=== PATIENT | male | born 1985 | race Caucasian/White ===

== ENCOUNTER 2016-11-30 12:25 | Inpatient (IN) ==
[2016-11-30] MEDS ORDERED: 0.9 % Sodium Chloride 1,000 ML IVC ONE ×2 (12:36→16:07)
[2016-11-30] MEDS ORDERED: Ketorolac 15 MG/ML VIAL IVP ONE (12:36)
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
[2016-11-30 12:56] LABS: Hematocrit 42.9 % (37.5-50.1); Hemoglobin 14.1 g/dL (12.9-16.9); Mean Corpuscular HGB Conc 32.9 g/dL (31.6-35.5); Mean Corpuscular Hemoglobin 27.8 pg (28.0-33.3); Mean Corpuscular Volume 84.4 fL (83.0-100.0); Mean Platelet Volume 9.8 fL (9.4-12.4); Platelet Count 209 K/mcL (140-400); Red Blood Count 5.08 M/mcL (4.19-5.50); Red Cell Distribution Width 14.5 % (11.5-14.5)
[2016-11-30] MEDS ORDERED: Vancomycin 1,500 MG in D5% in Water 250 ML IVPB ONE (13:00)
[2016-11-30 13:12] LABS: Alanine Aminotransferase 22 Units/L (0-55); Albumin 3.1 g/dL (3.5-5.0); Albumin/Globulin Ratio 0.7 (1.1-2.2); Alkaline Phosphatase 61 Units/L (38-126); Aspartate Amino Transferase 21 Units/L (5-34); BUN/Creatinine Ratio 21 (6-26); Bilirubin,Direct 0.4 mg/dL (0.0-0.5); Bilirubin,Indirect 0.3 mg/dL (0.0-1.2); Bilirubin,Total 0.7 mg/dL (0.2-1.2); Blood Urea Nitrogen 18 mg/dL (8-26); Calcium 9.5 mg/dL (8.6-10.8); Carbon Dioxide 24 mEq/L (19-29); Chloride 94 mEq/L (98-109); Globulin 4.7 g/dL (2.4-3.5); Glucose 140 mg/dL (70-99); Magnesium 1.4 mg/dL (1.6-2.6); Osmolality,Calculated 266 (280-300); Potassium 4.2 mEq/L (3.5-4.5); Sodium 126 mEq/L (136-145); Total Protein 7.8 g/dL (6.0-8.3); eGFR For African Americans > 60 (> 60); eGFR For Non-African Americans > 60 (> 60)
[2016-11-30 13:26] LABS: Monocytes # 0.4 K/mcL (0.0-1.3); Platelet Clumps Few (Not Present); Platelet Estimate Normal (Normal); Toxic Vacuolation Present (Not Present)
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
--- NOTE | 2016-11-30 16:18 | Electrocardiograph Report ---
[facility] Test Date: 2016-11-30 Pat Name: Ritesh Garzon Department: 103 Room: Gender: M Special Tester: : 1985 Requested By: Farida Kang Order Number: [id number] Reading MD: Veronica Flores DO Measurements Intervals [place] Rate: 109 P: 52 DE: 146 QRS: 97 QRSD: 88 T: 55 QT: 308 QTc: 372 Interpretive Statements SINUS TACHYCARDIA BORDERLINE RIGHT AXIS DEVIATION ABNORMAL RHYTHM ECG Electronically Signed On 11-30-2016 16:16:12 EDT by Veronica Flores DO
[2016-11-30] MEDS ORDERED: Gentamicin 350 MG in 0.9 % Sodium Chloride 100 ML IVPB STA (16:24)
[2016-11-30] MEDS ORDERED: Ipratropium/Albuterol Neb 3 ML IH PRN (17:39)
[2016-11-30] MEDS ORDERED: Ondansetron 4 MG/2 ML VIAL IVP PRN (17:40)
[2016-11-30] MEDS ORDERED: Acetaminophen 325 MG TABLET PO PRN (17:40)
[2016-11-30] MEDS ORDERED: Naloxone 0.4 MG/ML INJ IVP PRN (17:40)
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
[2016-11-30] MEDS ORDERED: Vancomycin (wt based) 1,000 MG VIAL IVPB SCH (18:00)
[2016-11-30] MEDS: *HR* Morphine 2 MG/ML SYRINGE IVP PRN (20:35)
[2016-11-30] MEDS: Levofloxacin 750 MG/150 ML 750 MG/150 ML BAG IVPB SCH (21:30)
[2016-11-30] MEDS: 0.9 % Sodium Chloride 1,000 ML IVC SCH (21:30)
[2016-11-30] MEDS: *HR* Heparin 5,000 UNIT/ML VIAL SQ SCH ×2 (21:30→21:54)
[2016-11-30] MEDS: Nicotine 21 MG PATCH.TD24 TD SCH (21:31)
[2016-11-30] MEDS: Magnesium Oxide 400 MG TABLET PO SCH ×2 (21:31→21:54)
[2016-11-30] MEDS: Ketorolac 30 MG/ML VIAL IVP PRN (21:32)
[2016-12-01] MEDS: *HR* Morphine 2 MG/ML SYRINGE IVP PRN ×6 (02:09→23:45)
[2016-12-01] MEDS: Vancomycin 1,000 MG in D5% in Water 250 ML IVPB SCH ×2 (02:09→16:15)
[2016-12-01 03:41] LABS: Enterococcus by PCR Not Detected (Not Detect)
[2016-12-01 03:42] LABS: Acinetobacter baumannii by PCR Not Detected (Not Detect); Candida albicans by PCR Not Detected (Not Detect); Candida glabrata by PCR Not Detected (Not Detect); Candida krusei by PCR Not Detected (Not Detect); Candida parapsilosis by PCR Not Detected (Not Detect); Candida tropicalis by PCR Not Detected (Not Detect); Escherichia coli by PCR Not Detected (Not Detect); Klebsiella oxytoca by PCR Not Detected (Not Detect); Klebsiella pneumoniae by PCR Not Detected (Not Detect); Pseudomonas aeruginosa by PCR Not Detected (Not Detect); Serratia marcescens by PCR Not Detected (Not Detect); Staphylococcus aureus by PCR Not Detected (Not Detect); Streptococcus agalactiae(B)PCR Not Detected (Not Detect); Streptococcus by PCR ***DETECTED*** (Not Detect); Streptococcus pneumoniae PCR Not Detected (Not Detect); Streptococcus pyogenes (A) PCR ***DETECTED*** (Not Detect)
[2016-12-01] MEDS: *HR* Heparin 5,000 UNIT/ML VIAL SQ SCH ×3 (04:55→22:34)
[2016-12-01] MEDS: Ketorolac 30 MG/ML VIAL IVP PRN ×3 (04:55→18:19)
[2016-12-01] MEDS ORDERED: 0.9 % Sodium Chloride 1,000 ML IVC ONE (05:26)
[2016-12-01 05:51] LABS: Hematocrit 37.4 % (37.5-50.1); Hemoglobin 12.7 g/dL (12.9-16.9); Mean Corpuscular Hemoglobin 27.9 pg (28.0-33.3); Mean Corpuscular Volume 82.2 fL (83.0-100.0); Red Blood Count 4.55 M/mcL (4.19-5.50); Red Cell Distribution Width 14.5 % (11.5-14.5)
[2016-12-01 05:56] LABS: Platelet Count 185 K/mcL (140-400)
[2016-12-01 06:03] LABS: Lymphocytes # 0.3 K/mcL (0.6-4.6); Monocytes # 0.5 K/mcL (0.0-1.3); Neutrophils # 11.4 K/mcL (1.6-8.9)
[2016-12-01 06:14] LABS: Hypochromasia Present (Not Present)
[2016-12-01 06:15] LABS: Platelet Clumps Few (Not Present); Platelet Estimate Normal (Normal); Toxic Granulation Present (Not Present); Toxic Vacuolation Present (Not Present)
[2016-12-01] MEDS: Nicotine 21 MG PATCH.TD24 TD SCH (09:22)
[2016-12-01] MEDS: Magnesium Oxide 400 MG TABLET PO SCH ×2 (09:25→20:32)
[2016-12-01] MEDS: Ibuprofen 400 MG TABLET PO PRN ×2 (09:26→16:14)
[2016-12-01] MEDS: 0.9 % Sodium Chloride 1,000 ML IVC SCH ×3 (09:27→17:39)
[2016-12-01 13:59] LABS: BUN/Creatinine Ratio 21 (6-26); Blood Urea Nitrogen 15 mg/dL (8-26); Calcium 8.4 mg/dL (8.6-10.8); Carbon Dioxide 22 mEq/L (19-29); Chloride 104 mEq/L (98-109); Glucose 109 mg/dL (70-99); Magnesium 1.3 mg/dL (1.6-2.6); Osmolality,Calculated 273 (280-300); Potassium 4.4 mEq/L (3.5-4.5); Sodium 131 mEq/L (136-145); eGFR For African Americans > 60 (> 60); eGFR For Non-African Americans > 60 (> 60)
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
[2016-12-01] MEDS ORDERED: Magnesium Sulfate 2 GM in D5% in Water 100 ML IVPB ONE (16:46)
--- NOTE | 2016-12-01 16:48 | Internal Med Progress Note ---
Date of Encounter: 12/01/16 Time of Encounter: 16:45 - Assessment and plan (1) PNA (pneumonia) Current Visit: Yes Status: Acute Qualifiers: Pneumonia type: due to unspecified organism Laterality: unspecified laterality Lung location: lower lobe of lung Qualified Code(s): J18.1 - Lobar pneumonia, unspecified organism (2) Cellulitis Current Visit: Yes Status: Acute Qualifiers: Site of cellulitis: extremity Site of cellulitis of extremity: upper extremity Laterality: right Qualified Code(s): L03.113 - Cellulitis of right upper limb (3) Empyema Current Visit: Yes Status: Acute (4) Severe sepsis Current Visit: Yes Status: Acute (5) IV drug abuse Current Visit: Yes Status: Acute (6) Hypomagnesemia Current Visit: Yes Status: Acute - Subjective Interval history: Patient is 31-year-old IV drug user admitted with a right hand cellulitis and left lung pneumonia with effusion which could be empyema. Cardiothoracic surgery has been consulted who recommended elective thoracentesis and a sonogram on Saturday. Echocardiogram was done which was negative for vegetation and otherwise normal. Blood culture showed Streptococcus and sensitivities pending. Patient is on IV vancomycin and Levaquin as he is allergic to penicillin. He has responded well as white count has come down. Will repeat white count and renal function and have pharmacy dose the vancomycin. Magnesium was noted low and has been corrected. She will be rechecked also. - Constitutional Vitals: Temp Pulse Resp BP Pulse Ox 98.7 F 93 18 146/85 97 12/01/16 15:00 12/01/16 15:00 12/01/16 15:00 12/01/16 15:00 12/01/16 15:00 General appearance: Present: A&O X 3 (Dry mucosa) - Head Head exam: Present: atraumatic, normocephalic - Eye Eye exam: Present: PERRL, conjuntiva pink, sclera anicteric Pupils: Present: PERRL - Neck Neck exam general surgery: Present: supple, trachea midline. Absent: lymphadenopathy - Respiratory Respiratory exam: Present: CTAB. Absent: accessory muscle use, rales, rhonchi, wheezes - Cardiovascular Cardiovascular exam: Present: RRR, +S1, +S2. Absent: diastolic murmur, gallop, rubs, systolic murmur - GI/Abdominal GI/Abdominal exam: Present: normal bowel sounds, soft, no peritoneal signs. Absent: distended, tenderness - Extremities Exam Extremities exam: Present: warm, radial pulses palpable and symetrical. Absent : calf tenderness, cyanotic, pedal edema - Neurological Exam Neurological exam: Present: CN II-XII intact, oriented X3, no focal deficits. Absent: pronater drift, facial droop, speech deficit - Skin Skin exam: Present: dry, intact Internal Medicine: Result - Labs CBC & Chem 7: 12/01/16 04:20 12/01/16 10:58 Labs: Short CBC 12/01/16 Range/Units 04:20 WBC 12.7 H (4.3-11.1) K/mcL Hgb 12.7 L (12.9-16.9) g/dL Hct 37.4 L (37.5-50.1) % Plt Count 185 (140-400) K/mcL Neutrophils # 11.4 H (1.6-8.9) K/mcL BMP 12/01/16 10:58 Sodium 131 L Potassium 4.4 Chloride 104 Carbon Dioxide 22 BUN 15 Creatinine 0.72 Glucose 109 H Calcium 8.4 L Consult Discharge Plan - Plan Referrals: NONE,PCP [Primary Care Provider] -
[2016-12-01] MEDS: Levofloxacin 750 MG/150 ML 750 MG/150 ML BAG IVPB SCH (20:33)
[2016-12-02] MEDS: 0.9 % Sodium Chloride 1,000 ML IVC SCH ×2 (00:56→07:14)
[2016-12-02] MEDS: Ketorolac 30 MG/ML VIAL IVP PRN ×4 (00:58→23:05)
[2016-12-02] MEDS: Vancomycin 1,000 MG in D5% in Water 250 ML IVPB SCH ×3 (01:09→18:26)
[2016-12-02 01:16] LABS: Basophils % 0.3 %; Eosinophils # 0.1 K/mcL (0.0-0.6); Eosinophils % 0.7 %; Hematocrit 37.3 % (37.5-50.1); Hemoglobin 12.5 g/dL (12.9-16.9); Immature Granulocytes % 0.9 % (0-4); Lymphocytes # 0.8 K/mcL (0.6-4.6); Lymphocytes % 7.9 %; Mean Corpuscular HGB Conc 33.5 g/dL (31.6-35.5); Mean Corpuscular Hemoglobin 27.7 pg (28.0-33.3); Mean Corpuscular Volume 82.7 fL (83.0-100.0); Mean Platelet Volume 10.3 fL (9.4-12.4); Monocytes # 1.2 K/mcL (0.0-1.3); Monocytes % 11.5 %; Platelet Count 170 K/mcL (140-400); Red Blood Count 4.51 M/mcL (4.19-5.50); Red Cell Distribution Width 14.7 % (11.5-14.5); Segmented Neutrophils % 78.7 %
[2016-12-02 01:34] LABS: Alanine Aminotransferase 20 Units/L (0-55); Albumin/Globulin Ratio 0.6 (1.1-2.2); Alkaline Phosphatase 88 Units/L (38-126); Aspartate Amino Transferase 23 Units/L (5-34); BUN/Creatinine Ratio 16 (6-26); Bilirubin,Total 0.4 mg/dL (0.2-1.2); Blood Urea Nitrogen 11 mg/dL (8-26); Calcium 7.8 mg/dL (8.6-10.8); Carbon Dioxide 22 mEq/L (19-29); Chloride 104 mEq/L (98-109); Globulin 3.4 g/dL (2.4-3.5); Glucose 112 mg/dL (70-99); Magnesium 1.4 mg/dL (1.6-2.6); Osmolality,Calculated 272 (280-300); Potassium 4.3 mEq/L (3.5-4.5); Sodium 131 mEq/L (136-145); eGFR For African Americans > 60 (> 60); eGFR For Non-African Americans > 60 (> 60)
[2016-12-02 01:36] LABS: Albumin 1.9 g/dL (3.5-5.0); Total Protein 5.3 g/dL (6.0-8.3)
[2016-12-02 01:48] LABS: Platelet Estimate Normal (Normal); Reactive Lymphocytes Present (Not Present)
[2016-12-02 01:49] LABS: Anisocytosis 1+ (Not Present)
[2016-12-02] MEDS: *HR* Morphine 2 MG/ML SYRINGE IVP PRN ×4 (03:54→20:38)
[2016-12-02] MEDS: *HR* Heparin 5,000 UNIT/ML VIAL SQ SCH ×3 (05:23→22:05)
[2016-12-02] MEDS: Acetaminophen 325 MG TABLET PO PRN (07:13)
[2016-12-02] MEDS: Nicotine 21 MG PATCH.TD24 TD SCH (07:37)
[2016-12-02] MEDS: Magnesium Oxide 400 MG TABLET PO SCH ×2 (07:46→20:38)
--- NOTE | 2016-12-02 08:24 | Pulmonology Consult Note ---
Date of Encounter: 12/02/16 Time of Encounter: 08:30 Assessment and Plan (1) PNA (pneumonia) Current Visit: Yes Status: Acute Patient with community-acquired pneumonia and there is improvement in the leukocytosis and clinically patient feels slightly better, however he had spiked fever earlier and even though allergies mentioned penicillin, however patient does not remember what type of reaction he had and he claims his mother told him when he was a child he is allergic to penicillin. Reviewed his blood culture sensitivity and will stop Levaquin to start ceftriaxone. Continue vancomycin for now. Blood culture needs to be repeated to make sure there is no endocarditis since septic emboli is in the differential diagnosis with his history of IV drug abuse. If blood cultures remain positive, then he will need SANCHEZ. Plan of care discussed with primary team and thank you very much for the consultation. Qualifiers: Qualified Code(s): J18.1 - Lobar pneumonia, unspecified organism (2) Empyema Current Visit: Yes Status: Acute This was mentioned by the radiologist on the CT chest which is in the differential diagnosis. Discussed with Dr. Krueger cardiothoracic and agree with the plan as outlined by him in his consultation note. I still feel fluid is small and if anything perhaps for diagnostic reason he needs thoracentesis. Otherwise if clinically continued to improve with improvement in labs, perhaps monitorin reasonable. (3) Cellulitis Current Visit: Yes Status: Acute Qualifiers: Qualified Code(s): L03.113 - Cellulitis of right upper limb History of Present Illness Consult date: 12/02/16 Requesting physician: Komal Palmer Reason for consult: pneumonia, pleural effusion Chief complaint: Right-sided chest pain History of present illness: This is a 31-year-old male with significant history of IV drug abuse and also smoking tobacco and he stated he is not using anything for the past 2 months. Patient presented with right-sided chest pain, which has improved now with the treatment and he also has pain in his right hand after he had flight before coming to the hospital. He was diagnosed with cellulitis of the right hand. He has pleuritic chest pain and he also has productive cough, wheezing with dyspnea according to the patient and he also was found to have fever and chills. His blood culture has been positive and he had CT chest with evidence of pleural effusion. He denies any loss of consciousness and he denies any exposure to patients with TB. He denies any birds or pets Past Med Surg Social Fam HX - Past Medical History Medical history: other Psychiatric history: no psych history - Past Surgical History Surgical History: no surgical history - Social History Smoking Status: Current every day smoker Packs per day: Half a pack per day Smokeless Tobacco Status: No Alcohol use: none Drug use: opiates, IV Drug Use Medications and Allergies HYDROcodone/Acet 5/325 mg [[place] 5-325 mg] 1 tab PO Q6H PRN #7 tab 11/29/16 [Rx] predniSONE [PredniSONE] 40 mg PO DAILY #10 tablet 11/29/16 [Rx] Allergies Penicillins Allergy (Verified 11/29/16 19:04) Anaphylaxis All Systems: A 10-system review of systems was performed and is negative for pertinent findings except as documented above in the HPI. Physical Examination Vital Signs: Vital Signs, Last 4 Hours Temp Pulse Resp BP Pulse Ox 12/02/16 07:00 98.5 F 103 18 163/100 95 12/02/16 05:28 137/90 General appearance: no acute distress Eyes: nonicteric ENT: oropharynx moist Mallampati (class): 1 Neck: supple, no lymphadenopathy Effort: normal Auscultation: left: clear, right: diminished breath sounds Percussion: left: not dull, right: dull Cardiovascular: regular rate and rhythm Gastrointestinal: normoactive bowel sounds, non-distended Integumentary: erythema, cellulitis (Right hand) Extremities: no cyanosis, no edema, no clubbing normal mental status, non-focal exam mood appropriate Results - Laboratory Findings CBC and BMP: 12/02/16 01:06 12/02/16 01:06 Abnormal lab findings: Abnormal lab results Hgb 12.5 g/dL (12.9-16.9) L 12/02/16 01:06 Hct 37.3 % (37.5-50.1) L 12/02/16 01:06 MCV 82.7 fL (83.0-100.0) L 12/02/16 01:06 MCH 27.7 pg (28.0-33.3) L 12/02/16 01:06 RDW 14.7 % (11.5-14.5) H 12/02/16 01:06 Band Neutrophils % 12.0 % (0-4) H 12/01/16 04:20 Metamyelocytes % 4.0 % (0) H 12/01/16 04:20 Reactive Lymphocytes Present (Not Present) A 12/02/16 01:06 Toxic Granulation Present (Not Present) A 12/01/16 04:20 Toxic Vacuolation Present (Not Present) A 12/01/16 04:20 Clumped Platelets Few (Not Present) A 12/01/16 04:20 Hypochromasia Present (Not Present) A 12/01/16 04:20 Anisocytosis 1+ (Not Present) A 12/02/16 01:06 Sodium 131 mEq/L (136-145) L 12/02/16 01:06 Creatinine 0.68 mg/dL (0.72-1.25) L 12/02/16 01:06 Glucose 112 mg/dL (70-99) H 12/02/16 01:06 Calculated Osmolality 272 (280-300) L 12/02/16 01:06 Lactic Acid 2.6 mmol/L (0.5-2.2) H 11/30/16 20:18 Calcium 7.8 mg/dL (8.6-10.8) L 12/02/16 01:06 Magnesium 1.4 mg/dL (1.6-2.6) L 12/02/16 01:06 Serum Total Protein 5.3 g/dL (6.0-8.3) L D 12/02/16 01:06 Albumin 1.9 g/dL (3.5-5.0) L D 12/02/16 01:06 Albumin/Globulin Ratio 0.6 (1.1-2.2) L 12/02/16 01:06 Vancomycin Trough 6.9 mcg/mL (10-20) L 12/02/16 01:06 Streptococcus sp PCR DETECTED (Not Detect) A 11/30/16 12:53 Group A Strep DNA DETECTED (Not Detect) A 11/30/16 12:53 - Diagnostic Findings CT scan - chest: report reviewed, image reviewed - Clinical Findings Intake & Output: Intake & Output 12/01/16 12/02/16 12/02/16 23:59 07:59 15:59 Intake Total 1250 / 1250 1150 / 1150 Output Total 750 / 750 Balance 500 / 500 1150 / 1150 Consult Discharge Plan - Plan Referrals: NONE,PCP [Primary Care Provider] -
--- NOTE | 2016-12-02 09:16 | Cardiothoracic Progress Note ---
Date of Encounter: 12/02/16 Time of Encounter: 09:15 - Assessment and plan (1) Cellulitis Current Visit: Yes Status: Acute The patient is improving. White blood cell count is down. His right hand cellulitis is improved. I will sign off. Please call if needed. Qualifiers: Site of cellulitis: extremity Site of cellulitis of extremity: upper extremity Laterality: right Qualified Code(s): L03.113 - Cellulitis of right upper limb - Subjective Interval history: The patient states that his right hand feels better. Vital Signs, Last 4 Hours Temp Pulse Resp BP Pulse Ox 12/02/16 08:00 95 12/02/16 07:00 98.5 F 103 18 163/100 95 12/02/16 05:28 137/90 Oxgyen Flow Rate Oxygen Flow Rate (LPM) 3.5 Weight 11/30/16 12/01/16 12/02/16 23:59 23:59 23:59 Weight 64.4 kg Lungs are clear to percussion and auscultation. Heart is in a normal sinus rhythm. The cellulitis, redness and swelling in his right hand are improved. - Labs 12/02/16 01:06 12/02/16 01:06 Lab Results, Last 24 hours 12/01/16 12/02/16 12/02/16 10:58 01:06 01:06 WBC 10.1 Hgb 12.5 L Hct 37.3 L Plt Count 170 Sodium 131 L 131 L Potassium 4.4 4.3 Chloride 104 104 Carbon Dioxide 22 22 BUN 15 11 Creatinine 0.72 0.68 L Glucose 109 H 112 H Calcium 8.4 L 7.8 L Magnesium 1.3 L 1.4 L Total Bilirubin 0.4 AST 23 ALT 20 Alkaline Phosphatase 88 Consult Discharge Plan - Plan Referrals: NONE,PCP [Primary Care Provider] -
[2016-12-02] MEDS: Ibuprofen 400 MG TABLET PO PRN (10:28)
[2016-12-02] MEDS ORDERED: Acetaminophen 325 MG TABLET PO SCH (12:00)
[2016-12-02] MEDS ORDERED: Magnesium Sulfate 2 GM in D5% in Water 100 ML IVPB ONE (15:24)
--- NOTE | 2016-12-02 15:33 | Internal Med Progress Note ---
Date of Encounter: 12/02/16 Time of Encounter: 15:28 - Assessment and plan (1) PNA (pneumonia) Current Visit: Yes Status: Acute Qualifiers: Pneumonia type: due to unspecified organism Laterality: unspecified laterality Lung location: lower lobe of lung Qualified Code(s): J18.1 - Lobar pneumonia, unspecified organism (2) Cellulitis Current Visit: Yes Status: Acute Qualifiers: Site of cellulitis: extremity Site of cellulitis of extremity: upper extremity Laterality: right Qualified Code(s): L03.113 - Cellulitis of right upper limb (3) Empyema Current Visit: Yes Status: Acute (4) Severe sepsis Current Visit: Yes Status: Acute (5) IV drug abuse Current Visit: Yes Status: Acute (6) Hypomagnesemia Current Visit: Yes Status: Acute - Subjective Interval history: Patient is 31-year-old IV drug user admitted with a right hand cellulitis and left lung pneumonia with effusion which could be empyema. Cardiothoracic surgery has been consulted who recommended elective thoracentesis and a sonogram on Saturday. Echocardiogram was done which was negative for vegetation and otherwise normal. Blood culture showed Streptococcus and sensitivities pending. Patient is on IV vancomycin and Levaquin as he is allergic to penicillin. He has responded well as white count has come down. Will repeat white count and renal function and have pharmacy dose the vancomycin. Magnesium was noted low and has been corrected. She will be rechecked also. #1 sepsis involving the right lower lung pneumonia/possible empyema, right upper extremity swelling. Blood culture showed Streptococcus pyogenes. Patient is on vancomycin and Rocephin 2 g. Levaquin DC'd. WBC count is coming down and continue monitoring WBC. Pulmonology and Cardizem plastic surgery on case however at this time they do not recommend thoracentesis. For now continue IV antibiotics and in 2-3 days we will repeat blood culture to see bacteremia has resolved. Otherwise a SANCHEZ will be performed X #2 hyponatremia/hypomagnesemia etiology is not clear but I noted that his serum osmolality is low therefore I will turn off IV fluid and keep him on fluid restriction. This could be secondary to pulmonary infection. #3 right hand swelling causing some capillary refill and thumb and index finger but is still not more than 3 second Will watch closely and if appear necessary may involve hand surgeon. #4 history of IV drug abuse patient claims that he has been clean for last few months - Constitutional Vitals: Temp Pulse Resp BP Pulse Ox 98.5 F 103 18 163/100 95 12/02/16 07:00 12/02/16 07:00 12/02/16 07:00 12/02/16 07:00 12/02/16 11:21 General appearance: Present: A&O X 3 (Dry mucosa) - Head Head exam: Present: atraumatic, normocephalic - Eye Eye exam: Present: PERRL, conjuntiva pink, sclera anicteric Pupils: Present: PERRL - Neck Neck exam general surgery: Present: supple, trachea midline. Absent: lymphadenopathy - Respiratory Respiratory exam: Present: CTAB. Absent: accessory muscle use, rales, rhonchi, wheezes - Cardiovascular Cardiovascular exam: Present: RRR, +S1, +S2. Absent: diastolic murmur, gallop, rubs, systolic murmur - GI/Abdominal GI/Abdominal exam: Present: normal bowel sounds, soft, no peritoneal signs. Absent: distended, tenderness - Extremities Exam Extremities exam: Present: warm, radial pulses palpable and symetrical. Absent : calf tenderness, cyanotic, pedal edema Additional comments: Right hand and forearm swelling. In ulnar side capillary refill is adequate but on the radial side especially thumb and index finger it is delayed to 2 second. We will watch him closely. Sensation intact. Radial pulse intact. - Neurological Exam Neurological exam: Present: CN II-XII intact, oriented X3, no focal deficits. Absent: pronater drift, facial droop, speech deficit - Skin Skin exam: Present: dry, intact Internal Medicine: Result - Labs CBC & Chem 7: 12/02/16 01:06 12/02/16 01:06 Labs: Short CBC 12/02/16 Range/Units 01:06 WBC 10.1 (4.3-11.1) K/mcL Hgb 12.5 L (12.9-16.9) g/dL Hct 37.3 L (37.5-50.1) % Plt Count 170 (140-400) K/mcL Neutrophils # 8.0 (1.6-8.9) K/mcL BMP 12/02/16 01:06 Sodium 131 L Potassium 4.3 Chloride 104 Carbon Dioxide 22 BUN 11 Creatinine 0.68 L Glucose 112 H Calcium 7.8 L Liver Function 12/02/16 Range/Units 01:06 Total Bilirubin 0.4 (0.2-1.2) mg/dL AST 23 (5-34) Units/L ALT 20 (0-55) Units/L Alkaline Phosphatase 88 (38-126) Units/L Albumin 1.9 L D (3.5-5.0) g/dL Consult Discharge Plan - Plan Referrals: NONE,PCP [Primary Care Provider] -
[2016-12-03] MEDS: Acetaminophen 325 MG TABLET PO PRN ×2 (00:13→16:05)
[2016-12-03] MEDS: Vancomycin 1,000 MG in D5% in Water 250 ML IVPB SCH ×3 (01:40→16:10)
[2016-12-03] MEDS: *HR* Morphine 2 MG/ML SYRINGE IVP PRN ×5 (03:47→21:43)
[2016-12-03] MEDS: *HR* Heparin 5,000 UNIT/ML VIAL SQ SCH ×3 (05:30→22:31)
[2016-12-03 06:00] LABS: Hematocrit 39.6 % (37.5-50.1); Hemoglobin 13.5 g/dL (12.9-16.9); Mean Corpuscular HGB Conc 34.1 g/dL (31.6-35.5); Mean Platelet Volume 13.1 fL (9.4-12.4); Platelet Count 127 K/mcL (140-400); Red Blood Count 4.83 M/mcL (4.19-5.50); Red Cell Distribution Width 15.1 % (11.5-14.5)
[2016-12-03] MEDS: Ketorolac 30 MG/ML VIAL IVP PRN ×3 (06:01→22:39)
[2016-12-03 06:08] LABS: Alanine Aminotransferase 24 Units/L (0-55); Albumin 1.8 g/dL (3.5-5.0); Albumin/Globulin Ratio 0.5 (1.1-2.2); Alkaline Phosphatase 138 Units/L (38-126); Aspartate Amino Transferase 30 Units/L (5-34); BUN/Creatinine Ratio 16 (6-26); Bilirubin,Total 0.3 mg/dL (0.2-1.2); Blood Urea Nitrogen 12 mg/dL (8-26); Carbon Dioxide 24 mEq/L (19-29); Chloride 103 mEq/L (98-109); Globulin 3.8 g/dL (2.4-3.5); Glucose 106 mg/dL (70-99); Magnesium 1.6 mg/dL (1.6-2.6); Osmolality,Calculated 278 (280-300); Potassium 4.5 mEq/L (3.5-4.5); Sodium 134 mEq/L (136-145); Total Protein 5.6 g/dL (6.0-8.3); eGFR For African Americans > 60 (> 60); eGFR For Non-African Americans > 60 (> 60)
--- NOTE | 2016-12-03 06:49 | Pulmonology Progress Note ---
Date of Encounter: 12/03/16 Time of Encounter: 06:49 Assessment and Plan (1) Group A streptococcal infection Current Visit: Yes Status: Acute 31-year-old gentleman IV drug abuser presenting with GAS Strep Bacteremia, cellulitis withevidence of right pleural infection possible empyema versus complicated parapneumonic effusion likely nidus infection and cellulitis of the right lower extremity. Despite IV antibiotics the as showing worsening features over the last 12-24 hours Recs: -Recommend formal consultation with Interventional Radiology for pleural fluid drainage if this area can be completely drained with thoracentesis I believe that that is appropriate if not then placement a small bore pleural drainage catheter is reasonable approach. Please send pleural fluid studies for pH cell count and Gram stain LDH glucose and total protein. -Repeat blood cultures if remains positive would consider SANCHEZ to rule out endocarditis -Continue antimicrobial therapy with ceftriaxone -Consider CT versus MRI imaging of right elbow -Recommend formal infectious disease consultation -Chemical DVT prophylaxis while inpatient and unless contraindication arises (2) Pleural effusion Current Visit: Yes Status: Acute (3) PNA (pneumonia) Current Visit: Yes Status: Acute Qualifiers: Pneumonia type: due to unspecified organism Laterality: unspecified laterality Lung location: lower lobe of lung Qualified Code(s): J18.1 - Lobar pneumonia, unspecified organism Subjective Principal diagnosis: Bacteremia Interval history: Patient says that he feels awful although the swelling in his hand has decreased his had worsening arm swelling around the elbow. Still with significant pleuritic chest pain and splinting as a result. MAXIMUM TEMPERATURE greater than 101 overnight Objective PUL Vital signs: Last Vital Signs Temp 98.1 F 12/03/16 05:54 Pulse 80 12/03/16 05:54 Resp 19 12/03/16 05:54 BP 110/95 12/03/16 05:54 Pulse Ox 96 12/03/16 05:54 General appearance: no acute distress ENT: oropharynx dry Effort: normal Auscultation: right: diminished breath sounds, rales, rhonchi Cardiovascular: regular rate and rhythm Gastrointestinal: normoactive bowel sounds Musculoskeletal: joint inflammation, joint tenderness (Right elbow to the forearm is noted the [employer] under to palpation no expressible drainage or evidence of trauma) Results - Laboratory Findings CBC and BMP: 12/03/16 04:19 12/03/16 04:19 Abnormal lab findings: Abnormal lab results WBC 12.9 K/mcL (4.3-11.1) H 12/03/16 04:19 MCV 82.0 fL (83.0-100.0) L 12/03/16 04:19 RDW 15.1 % (11.5-14.5) H 12/03/16 04:19 Plt Count 127 K/mcL (140-400) L 12/03/16 04:19 MPV 13.1 fL (9.4-12.4) H 12/03/16 04:19 Band Neutrophils % 12.0 % (0-4) H 12/01/16 04:20 Metamyelocytes % 4.0 % (0) H 12/01/16 04:20 Reactive Lymphocytes Present (Not Present) A 12/02/16 01:06 Toxic Granulation Present (Not Present) A 12/01/16 04:20 Toxic Vacuolation Present (Not Present) A 12/01/16 04:20 Clumped Platelets Few (Not Present) A 12/01/16 04:20 Hypochromasia Present (Not Present) A 12/01/16 04:20 Anisocytosis 1+ (Not Present) A 12/02/16 01:06 Sodium 134 mEq/L (136-145) L 12/03/16 04:19 Glucose 106 mg/dL (70-99) H 12/03/16 04:19 Calculated Osmolality 278 (280-300) L 12/03/16 04:19 Lactic Acid 2.6 mmol/L (0.5-2.2) H 11/30/16 20:18 Calcium 8.0 mg/dL (8.6-10.8) L 12/03/16 04:19 Alkaline Phosphatase 138 Units/L (38-126) H 12/03/16 04:19 Serum Total Protein 5.6 g/dL (6.0-8.3) L 12/03/16 04:19 Albumin 1.8 g/dL (3.5-5.0) L 12/03/16 04:19 Globulin 3.8 g/dL (2.4-3.5) H 12/03/16 04:19 Albumin/Globulin Ratio 0.5 (1.1-2.2) L 12/03/16 04:19 Vancomycin Trough 6.9 mcg/mL (10-20) L 12/02/16 01:06 Streptococcus sp PCR DETECTED (Not Detect) A 11/30/16 12:53 Group A Strep DNA DETECTED (Not Detect) A 11/30/16 12:53 - Diagnostic Findings CT scan - chest: image reviewed - Clinical Findings Intake & Output: Intake & Output 12/02/16 12/02/16 12/03/16 15:59 23:59 07:59 Intake Total 1370 / 1370 474 / 474 Output Total 1000 / 1000 Balance 1370 / 1370 -526 / -526 Weight 66.2 kg Consult Discharge Plan - Plan Referrals: NONE,PCP [Primary Care Provider] -
[2016-12-03 06:56] LABS: Basophils # 0.3 K/mcL (0.0-0.2); Lymphocytes # 1.6 K/mcL (0.6-4.6); Monocytes # 1.8 K/mcL (0.0-1.3); Neutrophils # 9.3 K/mcL (1.6-8.9); Platelet Estimate Slight Decrease (Normal)
[2016-12-03 06:57] LABS: Reactive Lymphocytes Present (Not Present); Toxic Granulation Present (Not Present)
--- NOTE | 2016-12-03 08:46 | Internal Med Progress Note ---
Date of Encounter: 12/03/16 Time of Encounter: 08:41 - Assessment and plan (1) PNA (pneumonia) Current Visit: Yes Status: Acute Qualifiers: Pneumonia type: due to unspecified organism Laterality: unspecified laterality Lung location: lower lobe of lung Qualified Code(s): J18.1 - Lobar pneumonia, unspecified organism (2) Cellulitis Current Visit: Yes Status: Acute Qualifiers: Site of cellulitis: extremity Site of cellulitis of extremity: upper extremity Laterality: right Qualified Code(s): L03.113 - Cellulitis of right upper limb (3) Empyema Current Visit: Yes Status: Acute (4) Severe sepsis Current Visit: Yes Status: Acute (5) IV drug abuse Current Visit: Yes Status: Acute (6) Hypomagnesemia Current Visit: Yes Status: Acute - Subjective Interval history: Patient is 31-year-old IV drug user admitted with a right hand cellulitis and left lung pneumonia with effusion which could be empyema. Cardiothoracic surgery has been consulted who recommended elective thoracentesis and a sonogram on Saturday. Echocardiogram was done which was negative for vegetation and otherwise normal. Blood culture showed Streptococcus and sensitivities pending. Patient is on IV vancomycin and Levaquin as he is allergic to penicillin. He has responded well as white count has come down. Will repeat white count and renal function and have pharmacy dose the vancomycin. Magnesium was noted low and has been corrected. She will be rechecked also. #1 sepsis involving the right lower lung pneumonia/possible empyema, right upper extremity swelling. Blood culture showed Streptococcus pyogenes. Patient is on vancomycin and Rocephin 2 g. Levaquin DC'd. WBC count went up to 12K. continue monitoring WBC. Pulmonology and Cardiothoracic surgery on case however at this time they do not recommend thoracentesis. For now continue IV antibiotics and in 2 days we will repeat blood culture to see bacteremia has resolved. If bacteremia persists then a SANCHEZ will be performed. #2 hyponatremia/hypomagnesemia etiology is not clear but I noted that his serum osmolality is low therefore I will turn off IV fluid and keep him on fluid restriction. and that helped and now his sodium is 134.This could be secondary to pulmonary infection. his sodium need to be watched over a period of time to see if he needs further workup. #3 I noted that his right hand swelling and redness has progressed into right forearm. right hand swelling and causing slow capillary refill especially thumb and index finger but is still not more than 3 sec. Order venous Doppler ultrasound of right upper extremity. #4 history of IV drug abuse patient claims that he has been clean for last few months. For that particular reason he will his stay in hospital until we decide to switch him to oral antibiotics. - Constitutional Vitals: Temp Pulse Resp BP Pulse Ox 98.1 F 76 14 112/88 96 12/03/16 07:02 12/03/16 07:02 12/03/16 07:02 12/03/16 07:02 12/03/16 07:02 General appearance: Present: A&O X 3 (Dry mucosa) - Head Head exam: Present: atraumatic, normocephalic - Eye Eye exam: Present: PERRL, conjuntiva pink, sclera anicteric Pupils: Present: PERRL - Neck Neck exam general surgery: Present: supple, trachea midline. Absent: lymphadenopathy - Respiratory Respiratory exam: Present: CTAB. Absent: accessory muscle use, rales, rhonchi, wheezes - Cardiovascular Cardiovascular exam: Present: RRR, +S1, +S2. Absent: diastolic murmur, gallop, rubs, systolic murmur - GI/Abdominal GI/Abdominal exam: Present: normal bowel sounds, soft, no peritoneal signs. Absent: distended, tenderness - Extremities Exam Extremities exam: Present: warm, radial pulses palpable and symetrical. Absent : calf tenderness, cyanotic, pedal edema Additional comments: Right upper extremity shows swelling and tenderness and redness covering his hand and a good portion of edges and forearm. It is my impression that his swelling and redness has increased. He is already on vancomycin and Rocephin. Capillary refill is is still under 3 seconds. However very tender to touch. - Neurological Exam Neurological exam: Present: CN II-XII intact, oriented X3, no focal deficits. Absent: pronater drift, facial droop, speech deficit - Skin Skin exam: Present: dry, intact Internal Medicine: Result - Labs CBC & Chem 7: 12/03/16 04:19 12/03/16 04:19 Labs: Short CBC 12/03/16 Range/Units 04:19 WBC 12.9 H (4.3-11.1) K/mcL Hgb 13.5 (12.9-16.9) g/dL Hct 39.6 (37.5-50.1) % Plt Count 127 L (140-400) K/mcL Neutrophils # 9.3 H (1.6-8.9) K/mcL BMP 12/03/16 04:19 Sodium 134 L Potassium 4.5 Chloride 103 Carbon Dioxide 24 BUN 12 Creatinine 0.73 Glucose 106 H Calcium 8.0 L Liver Function 12/03/16 Range/Units 04:19 Total Bilirubin 0.3 (0.2-1.2) mg/dL AST 30 (5-34) Units/L ALT 24 (0-55) Units/L Alkaline Phosphatase 138 H (38-126) Units/L Albumin 1.8 L (3.5-5.0) g/dL Consult Discharge Plan - Plan Referrals: NONE,PCP [Primary Care Provider] -
[2016-12-03] MEDS: Magnesium Oxide 400 MG TABLET PO SCH ×2 (10:46→22:31)
[2016-12-03] MEDS: Nicotine 21 MG PATCH.TD24 TD SCH (12:34)
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
--- NOTE | 2016-12-03 15:52 | IR Procedure Note ---
Date of procedure: 12/03/16 Consent Obtained: Written consent Timeout: Correct patient and procedure verified, Correct site verified, Time out performed, Skin prep completed Indications: pleural effusion rt Procedure Performed: thoracentesis Site/Technique: rt side Results/Findings: 500 cc fluid Estimated blood loss (cc): 2 Complications: None; Tolerated procedure well Post Procedure Treatment Plan: CXR
[2016-12-03 17:17] LABS: Glucose,Pleural Fluid 13 mg/dL (No Ref Range); Total Protein,Pleural Fluid 3.1 g/dL (No Ref Range)
[2016-12-03 18:14] LABS: RBC,Pleural Fluid 0.002 M/mcL
[2016-12-03 19:26] LABS: Appearance of Pleural Fl Cloudy (Clear)
[2016-12-04] MEDS: *HR* Morphine 2 MG/ML SYRINGE IVP PRN ×6 (00:48→22:36)
[2016-12-04] MEDS: Vancomycin 1,000 MG in D5% in Water 250 ML IVPB SCH (00:48)
[2016-12-04 01:00] LABS: Basophils # 0.1 K/mcL (0.0-0.2); Basophils % 0.5 %; Eosinophils # 0.3 K/mcL (0.0-0.6); Eosinophils % 1.9 %; Hematocrit 36.5 % (37.5-50.1); Hemoglobin 12.2 g/dL (12.9-16.9); Immature Granulocytes % 4.3 % (0-4); Immature Platelets 3.8 % (1.1-6.1); Lymphocytes # 2.6 K/mcL (0.6-4.6); Lymphocytes % 19.8 %; Mean Corpuscular HGB Conc 33.4 g/dL (31.6-35.5); Mean Corpuscular Hemoglobin 27.5 pg (28.0-33.3); Mean Corpuscular Volume 82.2 fL (83.0-100.0); Mean Platelet Volume 10.4 fL (9.4-12.4); Monocytes # 2.2 K/mcL (0.0-1.3); Neutrophils # 7.3 K/mcL (1.6-8.9); Platelet Count 216 K/mcL (140-400); Red Blood Count 4.44 M/mcL (4.19-5.50); Segmented Neutrophils % 56.5 %
[2016-12-04 01:15] LABS: Alanine Aminotransferase 21 Units/L (0-55); Albumin/Globulin Ratio 0.5 (1.1-2.2); Alkaline Phosphatase 125 Units/L (38-126); Aspartate Amino Transferase 19 Units/L (5-34); BUN/Creatinine Ratio 17 (6-26); Bilirubin,Total 0.3 mg/dL (0.2-1.2); Blood Urea Nitrogen 13 mg/dL (8-26); Calcium 7.9 mg/dL (8.6-10.8); Carbon Dioxide 25 mEq/L (19-29); Chloride 103 mEq/L (98-109); Glucose 132 mg/dL (70-99); Osmolality,Calculated 278 (280-300); Potassium 3.5 mEq/L (3.5-4.5); Sodium 133 mEq/L (136-145); eGFR For African Americans > 60 (> 60); eGFR For Non-African Americans > 60 (> 60)
[2016-12-04 01:16] LABS: Albumin 1.9 g/dL (3.5-5.0); Total Protein 5.9 g/dL (6.0-8.3)
[2016-12-04] MEDS: Ketorolac 30 MG/ML VIAL IVP PRN ×3 (06:04→20:45)
[2016-12-04] MEDS: *HR* Heparin 5,000 UNIT/ML VIAL SQ SCH ×3 (06:05→20:45)
[2016-12-04] MEDS: Acetaminophen 325 MG TABLET PO PRN (06:05)
--- NOTE | 2016-12-04 06:32 | Pulmonology Progress Note ---
Date of Encounter: 12/04/16 Time of Encounter: 06:32 Assessment and Plan (1) Group A streptococcal infection Current Visit: Yes Status: Acute 31-year-old gentleman IV drug abuser presenting with GAS Strep Bacteremia, cellulitis withevidence of right pleural infection possible empyema versus complicated parapneumonic effusion likely nidus infection and cellulitis of the right lower extremity. Despite IV antibiotics the as showing worsening features over the last 12-24 hours Recs: -Recommend formal consultation with Interventional Radiology for pleural fluid drainage if this area can be completely drained with thoracentesis I believe that that is appropriate if not then placement a small bore pleural drainage catheter is reasonable approach. Please send pleural fluid studies for pH cell count and Gram stain LDH glucose and total protein. -Repeat blood cultures if remains positive would consider SANCHEZ to rule out endocarditis -Continue antimicrobial therapy with ceftriaxone -Consider CT versus MRI imaging of right elbow -Recommend formal infectious disease consultation -Chemical DVT prophylaxis while inpatient and unless contraindication arises (2) Pleural effusion Current Visit: Yes Status: Acute (3) PNA (pneumonia) Current Visit: Yes Status: Acute Qualifiers: Pneumonia type: due to unspecified organism Laterality: unspecified laterality Lung location: lower lobe of lung Qualified Code(s): J18.1 - Lobar pneumonia, unspecified organism Subjective Principal diagnosis: Bacteremia Interval history: Patient says that he feels awful although the swelling in his hand has decreased his had worsening arm swelling around the elbow. Still with significant pleuritic chest pain and splinting as a result. MAXIMUM TEMPERATURE greater than 101 overnight Objective PUL Vital signs: Last Vital Signs Temp 102.5 F H 12/04/16 04:00 Pulse 97 12/04/16 04:00 Resp 21 12/04/16 04:00 BP 158/85 12/04/16 04:00 Pulse Ox 84 12/04/16 04:00 Results - Laboratory Findings CBC and BMP: 12/04/16 00:47 12/04/16 00:47 Abnormal lab findings: Abnormal lab results WBC 12.9 K/mcL (4.3-11.1) H 12/04/16 00:47 Hgb 12.2 g/dL (12.9-16.9) L 12/04/16 00:47 Hct 36.5 % (37.5-50.1) L 12/04/16 00:47 MCV 82.2 fL (83.0-100.0) L 12/04/16 00:47 MCH 27.5 pg (28.0-33.3) L 12/04/16 00:47 RDW 15.0 % (11.5-14.5) H 12/04/16 00:47 Immature Gran % 4.3 % (0-4) H 12/04/16 00:47 Band Neutrophils % 6.0 % (0-4) H 12/03/16 04:19 Metamyelocytes % 4.0 % (0) H 12/01/16 04:20 Monocytes # 2.2 K/mcL (0.0-1.3) H 12/04/16 00:47 Reactive Lymphocytes Present (Not Present) A 12/03/16 04:19 Toxic Granulation Present (Not Present) A 12/03/16 04:19 Toxic Vacuolation Present (Not Present) A 12/01/16 04:20 Platelet Estimate Slight Decrease (Normal) L 12/03/16 04:19 Clumped Platelets Few (Not Present) A 12/01/16 04:20 Hypochromasia Present (Not Present) A 12/01/16 04:20 Anisocytosis 1+ (Not Present) A 12/02/16 01:06 Sodium 133 mEq/L (136-145) L 12/04/16 00:47 Glucose 132 mg/dL (70-99) H 12/04/16 00:47 Calculated Osmolality 278 (280-300) L 12/04/16 00:47 Lactic Acid 2.6 mmol/L (0.5-2.2) H 11/30/16 20:18 Calcium 7.9 mg/dL (8.6-10.8) L 12/04/16 00:47 Serum Total Protein 5.9 g/dL (6.0-8.3) L 12/04/16 00:47 Albumin 1.9 g/dL (3.5-5.0) L 12/04/16 00:47 Globulin 4.0 g/dL (2.4-3.5) H 12/04/16 00:47 Albumin/Globulin Ratio 0.5 (1.1-2.2) L 12/04/16 00:47 Pleural Appearance Cloudy (Clear) A 12/03/16 15:00 Pleural Tot Nuc Cell 4630 TNC/mcL (0-1000) H 12/03/16 15:00 Streptococcus sp PCR DETECTED (Not Detect) A 11/30/16 12:53 Group A Strep DNA DETECTED (Not Detect) A 11/30/16 12:53 - Microbiology Findings Microbiology Findings: Microbiology, Last 48 Hours 12/03/16 15:00 Body Fluid Culture - Preliminary Pleural Fluid - Clinical Findings Intake & Output: Intake & Output 12/03/16 12/03/16 12/04/16 15:59 23:59 07:59 Intake Total 370 / 370 0 / 0 750 / 750 Output Total 500 / 500 0 / 0 Balance 370 / 370 -500 / -500 750 / 750 Weight 74.4 kg Consult Discharge Plan - Plan Referrals: NONE,PCP [Primary Care Provider] -
[2016-12-04] MEDS: Magnesium Oxide 400 MG TABLET PO SCH ×2 (08:38→20:00)
[2016-12-04] MEDS: Nicotine 21 MG PATCH.TD24 TD SCH (08:38)
--- NOTE | 2016-12-04 09:16 | Pulmonology Progress Note ---
Date of Encounter: 12/04/16 Time of Encounter: 09:13 Assessment and Plan (1) Group A streptococcal infection Current Visit: Yes Status: Acute Impression: 1. Empyema 2. Group A Strep Bacteremia Recs: -He has undergone drainage yesterday and pleural studies suggest empyema. Repeat CT chest today if no further collection cont ABx if collection present will need drainage catheter vs surgical Decortication -ID following he is on appropriate ABx (Ceftriaxone). Being evaluated for Endocarditis. Consider Right arm imaging. -Cont Chemical DVT prophylaxis unless contraindication arises. (2) Pleural effusion Current Visit: Yes Status: Acute (3) PNA (pneumonia) Current Visit: Yes Status: Acute Qualifiers: Pneumonia type: due to unspecified organism Laterality: unspecified laterality Lung location: lower lobe of lung Qualified Code(s): J18.1 - Lobar pneumonia, unspecified organism Subjective Principal diagnosis: Bacteremia Interval history: Reamined febrile overnight. Complains that he is saling the bed with sweat. Went to IR for drainage yesterday and about 500c were removed he feels better subsequently from standpoint of diminished Pleurisy. Objective PUL Vital signs: Last Vital Signs Temp 98.8 F 12/04/16 07:20 Pulse 87 12/04/16 07:20 Resp 18 12/04/16 07:20 BP 124/72 12/04/16 07:20 Pulse Ox 94 12/04/16 07:20 General appearance: no acute distress, other (he is drenched in sweat ) Effort: normal Auscultation: right: diminished breath sounds Cardiovascular: regular rate and rhythm Musculoskeletal: other (sweeling or right hand writs and forearme to elbow worse from yesterday ) mood appropriate Results - Laboratory Findings CBC and BMP: 12/04/16 00:47 12/04/16 00:47 Abnormal lab findings: Abnormal lab results WBC 12.9 K/mcL (4.3-11.1) H 12/04/16 00:47 Hgb 12.2 g/dL (12.9-16.9) L 12/04/16 00:47 Hct 36.5 % (37.5-50.1) L 12/04/16 00:47 MCV 82.2 fL (83.0-100.0) L 12/04/16 00:47 MCH 27.5 pg (28.0-33.3) L 12/04/16 00:47 RDW 15.0 % (11.5-14.5) H 12/04/16 00:47 Immature Gran % 4.3 % (0-4) H 12/04/16 00:47 Band Neutrophils % 6.0 % (0-4) H 12/03/16 04:19 Metamyelocytes % 4.0 % (0) H 12/01/16 04:20 Monocytes # 2.2 K/mcL (0.0-1.3) H 12/04/16 00:47 Reactive Lymphocytes Present (Not Present) A 12/03/16 04:19 Toxic Granulation Present (Not Present) A 12/03/16 04:19 Toxic Vacuolation Present (Not Present) A 12/01/16 04:20 Platelet Estimate Slight Decrease (Normal) L 12/03/16 04:19 Clumped Platelets Few (Not Present) A 12/01/16 04:20 Hypochromasia Present (Not Present) A 12/01/16 04:20 Anisocytosis 1+ (Not Present) A 12/02/16 01:06 Sodium 133 mEq/L (136-145) L 12/04/16 00:47 Glucose 132 mg/dL (70-99) H 12/04/16 00:47 Calculated Osmolality 278 (280-300) L 12/04/16 00:47 Lactic Acid 2.6 mmol/L (0.5-2.2) H 11/30/16 20:18 Calcium 7.9 mg/dL (8.6-10.8) L 12/04/16 00:47 Serum Total Protein 5.9 g/dL (6.0-8.3) L 12/04/16 00:47 Albumin 1.9 g/dL (3.5-5.0) L 12/04/16 00:47 Globulin 4.0 g/dL (2.4-3.5) H 12/04/16 00:47 Albumin/Globulin Ratio 0.5 (1.1-2.2) L 12/04/16 00:47 Pleural Appearance Cloudy (Clear) A 12/03/16 15:00 Pleural Tot Nuc Cell 4630 TNC/mcL (0-1000) H 12/03/16 15:00 Streptococcus sp PCR DETECTED (Not Detect) A 11/30/16 12:53 Group A Strep DNA DETECTED (Not Detect) A 11/30/16 12:53 - Microbiology Findings Microbiology Findings: Microbiology, Last 48 Hours 12/03/16 15:00 Body Fluid Culture - Preliminary Pleural Fluid - Clinical Findings Intake & Output: Intake & Output 12/03/16 12/04/16 12/04/16 23:59 07:59 15:59 Intake Total 0 / 0 750 / 750 Output Total 500 / 500 0 / 0 Balance -500 / -500 750 / 750 Weight 74.4 kg Consult Discharge Plan - Plan Referrals: NONE,PCP [Primary Care Provider] -
--- NOTE | 2016-12-04 14:40 | Cardiothoracic Progress Note ---
Date of Encounter: 12/04/16 Time of Encounter: 14:37 - Assessment and plan (1) Cellulitis Current Visit: Yes Status: Acute We will take the patient to the operating room tomorrow for right thoracotomy with drainage of empyema and decortication. Operative consent was obtained. Risks include , myocardial infarction, stroke, bleeding, renal or respiratory failure, pulmonary embolism and recurrent infection. The procedure, its risks, benefits and alternatives were explained and he does wish to proceed. He has no questions. He will need to have some kind of drainage of his right hand and forearm at some point to prevent recurrent infection. Qualifiers: Site of cellulitis: extremity Site of cellulitis of extremity: upper extremity Laterality: right Qualified Code(s): L03.113 - Cellulitis of right upper limb - Subjective Interval history: The patient complains of continued swelling and pain in his right hand and forearm. He underwent pleural tap yesterday. CT scan done today reveals a large loculated right pleural effusion which is an empyema which is filling most of the chest. Vital Signs, Last 4 Hours Temp Pulse Resp BP Pulse Ox 12/04/16 12:02 98.9 F 86 18 132/78 90 Oxgyen Flow Rate Oxygen Flow Rate (LPM) 3.5 Weight 12/02/16 12/03/16 12/04/16 23:59 23:59 23:59 Weight 66.2 kg 74.4 kg Lungs have decreased breath sounds on the right side with dullness to percussion. Heart is in a normal sinus rhythm. - Labs 12/04/16 00:47 12/04/16 00:47 Lab Results, Last 24 hours 12/04/16 12/04/16 12/04/16 00:47 00:47 00:47 WBC 12.9 H Hgb 12.2 L Hct 36.5 L Plt Count 216 D Sodium 133 L Potassium 3.5 D Chloride 103 Carbon Dioxide 25 BUN 13 Creatinine 0.75 Glucose 132 H Calcium 7.9 L Magnesium 1.6 Total Bilirubin 0.3 AST 19 ALT 21 Alkaline Phosphatase 125 Consult Discharge Plan - Plan Referrals: NONE,PCP [Primary Care Provider] - (december 10 at residency clinic with dr dial at 3:00)
[2016-12-04] MEDS: Vancomycin 1,250 MG in D5% in Water 250 ML IVPB SCH ×2 (14:42→20:00)
[2016-12-04] MEDS: *HR* OxyCODONE/APAP 5/325 TABLET PO PRN (14:49)
--- NOTE | 2016-12-04 16:19 | Infectious Disease Progress No ---
Date of Encounter: 12/04/16 Time of Encounter: 16:17 - Assessment and Plan (1) Empyema lung Current Visit: Yes Status: Acute large on the right thoracentesis reveals exudative fluid WBC count 5000 bacteria seen on gram stain but cultures pending d/w Dr. Krueger, going for decortication tomorrow (2) Severe sepsis Current Visit: Yes Status: Acute The patient had three SIRS criteria plus lactic acidosis on admission. Likely secondary to bacteremia. Improved. Tachycardia has resolved. The patient continues to be febrile. He continues to have leukocytosis, but his bandemia has improved. (3) Bacteremia Current Visit: Yes Status: Acute Causative organism: GAS. Source unclear: Right hand cellulitis vs. PNA. Blood cultures drawn 11/30/16 are positive 2/2 sets. TTE negative for vegetations. The patient has three minor Modified Hutchison's Criteria. Repeat blood cultures x 2 sets now. Continue Vancomycin IV. Pharmacy to dose. Goal trough ~15. Trough this morning 12.1. Continue Rocephin 2 grams IV daily. Await repeat blood cultures. Duration of treatment depends on the clinical picture. Monitor renal function and for drug toxicity and dose-adjust antibiotics. (4) Septic embolism Current Visit: Yes Status: Acute with empyema worse CT scan going for decortication tomorrow d/w pulmonary and cardiothoracic (5) Cellulitis Current Visit: Yes Status: Acute Qualifiers: Site of cellulitis: extremity Site of cellulitis of extremity: upper extremity Laterality: right Qualified Code(s): L03.113 - Cellulitis of right upper limb (6) PNA (pneumonia) Current Visit: Yes Status: Acute Qualifiers: Pneumonia type: due to unspecified organism Laterality: unspecified laterality Lung location: lower lobe of lung Qualified Code(s): J18.1 - Lobar pneumonia, unspecified organism (7) Pleural effusion Current Visit: Yes Status: Acute (8) Hand pain, right Current Visit: Yes Status: Acute (9) Lactic acidosis Current Visit: Yes Status: Resolved (10) Hyponatremia Current Visit: Yes Status: Acute (11) Hypomagnesemia Current Visit: Yes Status: Acute (12) IV drug abuse Current Visit: Yes Status: Acute - Subjective Interval history: patient seen and examined. clinically unchanged but CT is looking much worse. right upper ext with significant pain. Infect Dis PN-Objective Data - Labs CBC & Chem 7: 12/05/16 08:51 12/05/16 08:51 Labs: Laboratory Results - last 24 hr 12/03/16 12/03/16 12/04/16 15:00 15:00 00:47 WBC RBC Hgb Hct MCV MCH MCHC RDW Plt Count MPV Immature Gran % Seg Neutrophils % Lymphocytes % Monocytes % Eosinophils % Basophils % Neutrophils # Lymphocytes # Monocytes # Eosinophils # Basophils # Immature Plt Fraction Sodium Potassium Chloride Carbon Dioxide BUN Creatinine Est GFR ( Amer) Est GFR (Non-Af Amer) BUN/Creatinine Ratio Glucose Calculated Osmolality Calcium Magnesium Total Bilirubin AST ALT Alkaline Phosphatase Serum Total Protein Albumin Globulin Albumin/Globulin Ratio Pleural Fluid Volume 500.0 Pleural Appearance Cloudy A Pleural RBC 0.002 Pleural Tot Nuc Cell 4630 H Pleural Neutrophils 91.0 Pleural Band Neuts Test Not Performed Pleural Eosinophils Test Not Performed Pleural Basophils Test Not Performed Pleural Lymphocytes % 7.0 Pleural Monocytes % 2.0 Pleural Other Cells % Test Not Performed Pleural Total Protein 3.1 Pleural LDH 1758 Pleural Glucose 13 HIV Ag/Ab Combo Qual Nonreactive 12/04/16 12/04/16 12/04/16 00:47 00:47 00:47 WBC 12.9 H RBC 4.44 Hgb 12.2 L Hct 36.5 L MCV 82.2 L MCH 27.5 L MCHC 33.4 RDW 15.0 H Plt Count 216 D MPV 10.4 Immature Gran % 4.3 H Seg Neutrophils % 56.5 Lymphocytes % 19.8 Monocytes % 17.0 Eosinophils % 1.9 Basophils % 0.5 Neutrophils # 7.3 Lymphocytes # 2.6 Monocytes # 2.2 H Eosinophils # 0.3 Basophils # 0.1 Immature Plt Fraction 3.8 Sodium 133 L Potassium 3.5 D Chloride 103 Carbon Dioxide 25 BUN 13 Creatinine 0.75 Est GFR ( Amer) > 60 Est GFR (Non-Af Amer) > 60 BUN/Creatinine Ratio 17 Glucose 132 H Calculated Osmolality 278 L Calcium 7.9 L Magnesium 1.6 Total Bilirubin 0.3 AST 19 ALT 21 Alkaline Phosphatase 125 Serum Total Protein 5.9 L Albumin 1.9 L Globulin 4.0 H Albumin/Globulin Ratio 0.5 L Pleural Fluid Volume Pleural Appearance Pleural RBC Pleural Tot Nuc Cell Pleural Neutrophils Pleural Band Neuts Pleural Eosinophils Pleural Basophils Pleural Lymphocytes % Pleural Monocytes % Pleural Other Cells % Pleural Total Protein Pleural LDH Pleural Glucose HIV Ag/Ab Combo Qual Cultures: Cultures 12/03/16 15:00 Acid Fast Stain - Final Pleural Fluid 12/03/16 15:00 Body Fluid Culture - Preliminary Pleural Fluid Serology 12/04/16 12/03/16 12/03/16 Range/Units 00:47 15:00 15:00 Pleural Fluid Volume 500.0 mL Pleural Appearance Cloudy A (Clear) Pleural RBC 0.002 (0.000 - 0.002) M/mcL Pleural Tot Nuc Cell 4630 H (0-1000) TNC/mcL Pleural Neutrophils 91.0 % Pleural Band Neuts Test Not Performed Pleural Eosinophils Test Not Performed Pleural Basophils Test Not Performed Pleural Lymphocytes % 7.0 % Pleural Monocytes % 2.0 % Pleural Other Cells % Test Not Performed Pleural Total Protein 3.1 (No Ref Range) g/dL Pleural LDH 1758 (No Ref Range) Units/L Pleural Glucose 13 (No Ref Range) mg/dL HIV Ag/Ab Combo Qual Nonreactive (Nonreactive) - Impressions Impressions Thoracentesis Ultrasound 12/03/16 00:00 IMPRESSION: Successful ultrasound guided right thoracentesis. D/ / Krissy Adams MD / Krissy Adams MD Interpreting Provider: Krissy Adams MD Chest CT 12/04/16 11:00 IMPRESSION: 1. Significant increase in size of right pleural effusion which is likely at least partially loculated. This results in compressive atelectasis. Cannot exclude superimposed pneumonia within the right middle and right lower lobe consolidation 2. Multifocal ground-glass opacities in the left upper lobe and lingula are most likely infectious. There is atelectasis in the left lower lobe with trace left pleural effusion D/ / Saturnino Pedraza MD / Saturnino Pedraza MD Interpreting Provider: Saturnino Pedraza MD Exam - Constitutional Vitals: Temp Pulse Resp BP Pulse Ox 98.0 F 81 14 140/86 90 12/04/16 16:09 12/04/16 16:09 12/04/16 16:09 12/04/16 16:09 12/04/16 16:09 General appearance: no acute distress - Head Head exam: Present: atraumatic - Eye Eye exam: Present: sclera anicteric Additional comments: no conjunctival hemorrhage - Neck Neck exam: Present: full ROM - Cardiovascular Cardiovascular exam: Present: RRR, +S1, +S2 - GI/Abdominal GI/Abdominal exam: Present: soft. Absent: tenderness - Extremities Exam Additional comments: right upper ext hand, wrist and forearm pain and swelling - Skin Skin exam: Present: normal color. Absent: rash Consult Discharge Plan - Plan Referrals: NONE,PCP [Primary Care Provider] - (december 10 at residency clinic with dr dial at 3:00)
--- NOTE | 2016-12-04 16:38 | Orthopedic Consult Note ---
Date of Encounter: 12/04/16 Time of Encounter: 18:00 Assessment and Plan (1) Cellulitis Current Visit: Yes Status: Acute Orthopedics consulted secondary to worsening of RUE swelling and pain. He has been treated with IV ABX since admission 11/30 and since progressed with empyema and septic emboli. Blood cultures show GABHS. PROM to digits cause limited pain - no concern for infectious tenosynovitis at this time. Concern for possible new abscess formation to forearm - previous CT did not show an abscess but will repeat CT this evenin12/04/16CT results: At the level the hand, there is dorsal soft tissue swelling. No obvious abscess identified. No bony changes are present, with no osteolysis and no periosteal reaction. CT/CT UE RT wo con IMPRESSION: 1. Continued evidence of extensive subcutaneous edema, greater dorsally. No obvious abscess is identified. No soft tissue gas is seen. Again, evaluation for abscess is limited without intravenous contrast. No surgical intervention recommended from orthopedic standpoint at this time. He is currently scheduled for thoracentesis with CT surgeon for 12/05/16. Doppler from 12/03/16 was negative; awaiting repeat doppler secondary to worsening of his swelling and pain. Advised on constant elevation, PROM of hand and fingers. Qualifiers: Site of cellulitis: extremity Site of cellulitis of extremity: upper extremity Laterality: right Qualified Code(s): L03.113 - Cellulitis of right upper limb (2) Bacteremia Current Visit: Yes Status: Acute (3) Group A streptococcal infection Current Visit: Yes Status: Acute (4) Empyema Current Visit: Yes Status: Acute (5) IV drug abuse Current Visit: Yes Status: Chronic (6) PNA (pneumonia) Current Visit: Yes Status: Acute Qualifiers: Pneumonia type: due to unspecified organism Laterality: unspecified laterality Lung location: lower lobe of lung Qualified Code(s): J18.1 - Lobar pneumonia, unspecified organism (7) Septic embolism Current Visit: Yes Status: Acute (8) Lactic acidosis Current Visit: Yes Status: Resolved (9) Hepatitis C Current Visit: Yes Status: Acute Qualifiers: Viral hepatitis chronicity: chronic Hepatic coma status: without hepatic coma Qualified Code(s): B18.2 - Chronic viral hepatitis C History of Present Illness Chief complaint: Right Hand Cellulitis HPI: Mr. Garzon is a 31 year old male - past medical history of hep C. The patient was admitted to the hospital November 30 for right hand pain and empyema. We are consulted December 04 for further evaluation and treatment recommendations regarding Right hand pain. . The patient apparently suffered a traumatic injury to his right hand back on November 27. He was seen in the emergency department 2 times prior to admission and had x-rays that revealed no fracture. The patient was placed on anti- inflammatories and pain medication and was discharged home in time. 11/30/16: the swelling continued to get worse in the patient began to experience right-sided chest pain and shortness of breath - temperature 100.8 and tachycardic. Laboratory studies revealed a leukocytosis. He also had lactic acidosis. Chest x-ray showed reticular opacities in the right base concerning for pneumonia. A CT of the chest revealed a small right-sided pleural effusion concerning for empyema. There were also noted to be some pulmonary nodules as well. The right upper extremity CT showed diffuse soft tissue edema on the dorsal aspect of the right hand and wrist and forearm, but there is no abscess. Blood cultures were obtained 2 sets. The patient was given a dose of IV vancomycin and IV gentamicin. He was admitted to the hospital for further evaluation and treatment. Since admission, the patient has continued to have intermittent fevers with a MAXIMUM TEMPERATURE of 101.3 last 48 hours. His white blood cell count has remained stable Transthoracic echocardiogram that revealed an EF of 65%, and no vegetations. Cardiographic surgery was consulted - Plan for OR tomorrow with with Cardiothoracic - thoracentesis scheduled for worsening empyema. Additionally, pulmonary was consulted and they think the patient's pulmonary nodules all are likely septic emboli. Currently, the patient is on IV vancomycin and IV Rocephin. Infectious disease consulted and is on board. Past Med Surg Social Fam HX - Past Medical History Medical history: hepatitis (Hepatitis C) Psychiatric history: no psych history - Past Surgical History Surgical History: no surgical history - Social History Smoking Status: Current every day smoker Packs per day: Half a pack per day Smokeless Tobacco Status: No Alcohol use: none Drug use: opiates, IV Drug Use Medications and Allergies HYDROcodone/Acet 5/325 mg [[place] 5-325 mg] 1 tab PO Q6H PRN #7 tab 11/29/16 [Rx] predniSONE [PredniSONE] 40 mg PO DAILY #10 tablet 11/29/16 [Rx] Allergies Penicillins Allergy (Verified 11/29/16 19:04) Anaphylaxis All Systems Reviewed: A 10-system review of systems was performed and is negative for pertinent findings except as documented above in the HPI. - Constitutional Constitutional: as per HPI - Cardiovascular Cardiovascular: as per HPI - Respiratory Respiratory: as per HPI - Musculoskeletal Musculoskeletal: as per HPI Physical Exam - Constitutional Vitals: Temp Pulse Resp BP Pulse Ox 98.0 F 81 14 140/86 90 12/04/16 16:09 12/04/16 16:09 12/04/16 16:09 12/04/16 16:09 12/04/16 16:09 - Wrist & Hand right Location of pain: dorsal wrist, volar wrist, radial wrist, palmar wrist, dorsal hand, volar hand, radial hand, ulnar hand, palmar hand Wrist pain modifiers: with motion Tenderness with palpation: radial wrist, ulnar wrist, dorsal wrist, volar wrist , radial hand, ulnar hand, dorsal hand, volar hand ROM: wrist flexion: abnormal ROM: wrist extension: abnormal ROM: wrist radial deviation: abnormal ROM: wrist ulnar deviation: abnormal ROM: wrist pronation: abnormal ROM: wrist supination: abnormal Finger crepitus with motion: No Results - Labs Result Diagrams: 12/06/16 04:10 12/06/16 09:34 Labs: Abnormal lab results WBC 12.9 K/mcL (4.3-11.1) H 12/04/16 00:47 Hgb 12.2 g/dL (12.9-16.9) L 12/04/16 00:47 Hct 36.5 % (37.5-50.1) L 12/04/16 00:47 MCV 82.2 fL (83.0-100.0) L 12/04/16 00:47 MCH 27.5 pg (28.0-33.3) L 12/04/16 00:47 RDW 15.0 % (11.5-14.5) H 12/04/16 00:47 Immature Gran % 4.3 % (0-4) H 12/04/16 00:47 Band Neutrophils % 6.0 % (0-4) H 12/03/16 04:19 Metamyelocytes % 4.0 % (0) H 12/01/16 04:20 Monocytes # 2.2 K/mcL (0.0-1.3) H 12/04/16 00:47 Reactive Lymphocytes Present (Not Present) A 12/03/16 04:19 Toxic Granulation Present (Not Present) A 12/03/16 04:19 Toxic Vacuolation Present (Not Present) A 12/01/16 04:20 Platelet Estimate Slight Decrease (Normal) L 12/03/16 04:19 Clumped Platelets Few (Not Present) A 12/01/16 04:20 Hypochromasia Present (Not Present) A 12/01/16 04:20 Anisocytosis 1+ (Not Present) A 12/02/16 01:06 Sodium 133 mEq/L (136-145) L 12/04/16 00:47 Glucose 132 mg/dL (70-99) H 12/04/16 00:47 Calculated Osmolality 278 (280-300) L 12/04/16 00:47 Lactic Acid 2.6 mmol/L (0.5-2.2) H 11/30/16 20:18 Calcium 7.9 mg/dL (8.6-10.8) L 12/04/16 00:47 Serum Total Protein 5.9 g/dL (6.0-8.3) L 12/04/16 00:47 Albumin 1.9 g/dL (3.5-5.0) L 12/04/16 00:47 Globulin 4.0 g/dL (2.4-3.5) H 12/04/16 00:47 Albumin/Globulin Ratio 0.5 (1.1-2.2) L 12/04/16 00:47 Pleural Appearance Cloudy (Clear) A 12/03/16 15:00 Pleural Tot Nuc Cell 4630 TNC/mcL (0-1000) H 12/03/16 15:00 Streptococcus sp PCR DETECTED (Not Detect) A 11/30/16 12:53 Group A Strep DNA DETECTED (Not Detect) A 11/30/16 12:53 H & H 12/04/16 Range/Units 00:47 Hgb 12.2 L (12.9-16.9) g/dL Hct 36.5 L (37.5-50.1) % All other labs normal. Awaiting repeat Doppler* - Diagnostic results Wrist/Hand CT: report reviewed, image reviewed Consult Discharge Plan - Plan Referrals: NONE,PCP [Primary Care Provider] - (december 10 at residency clinic with dr dial at 3:00)
--- NOTE | 2016-12-04 18:06 | Internal Med Progress Note ---
Date of Encounter: 12/04/16 Time of Encounter: 12:10 - Assessment and plan (1) Severe sepsis Current Visit: Yes Status: Acute Assessment and plan: Patient presented with fever, tachycardia, leukocytosis and mild lactic acidosis can noted to have bilateral pneumonia. Continue IV antibiotics, remaining plan as below. (2) Gram-positive bacteremia Current Visit: Yes Status: Acute Assessment and plan: 2 out of 2 initial blood cultures grew group A Streptococcus. Follow-up repeat blood cultures and continue IV Rocephin and vancomycin. Infectious diseases on board. (3) Cellulitis Current Visit: Yes Status: Acute Assessment and plan: Noted to have hand cellulitis with reportedly worsening pain and swelling. Check venous Doppler of right upper extremity. Will consult hand surgery for further recommendations. Pain control with scheduled IV Toradol, when necessary IV morphine. Right upper extremity elevation. Qualifiers: Site of cellulitis: extremity Site of cellulitis of extremity: upper extremity Laterality: right Qualified Code(s): L03.113 - Cellulitis of right upper limb (4) PNA (pneumonia) Current Visit: Yes Status: Acute Assessment and plan: CT chest shows bilateral pneumonia with right-sided pleural effusion. Pulmonology was consulted and patient underwent right-sided thoracentesis yesterday, consistent with exudative fluid. Repeat CT chest shows reaccumulation of fluid, possible loculation with compressive atelectasis. Will consult CT surgery. Continue IV antibiotics and supplemental oxygen as needed. Qualifiers: Pneumonia type: due to unspecified organism Laterality: unspecified laterality Lung location: lower lobe of lung Qualified Code(s): J18.1 - Lobar pneumonia, unspecified organism (5) Pleural effusion Current Visit: Yes Status: Acute (6) Septic embolism Current Visit: Yes Status: Acute (7) Tobacco abuse Current Visit: Yes Status: Chronic Assessment and plan: Continue nicotine transdermal patch. (8) IV drug abuse Current Visit: Yes Status: Chronic - Subjective Interval history: Reports significant right hand pain and swelling, extending up to elbow; also has right-sided chest pain; noted to have fever spike earlier this morning; - Constitutional Vitals: Temp Pulse Resp BP Pulse Ox 98.0 F 81 14 140/86 90 12/04/16 16:09 12/04/16 16:09 12/04/16 16:09 12/04/16 16:09 12/04/16 16:09 General appearance: Present: mild distress, A&O X 3, answers questions appropriately - Respiratory Respiratory exam: Present: decreased breath sounds (on left side, at base and midaxillary line). Absent: accessory muscle use, rales, rhonchi, wheezes - Cardiovascular Cardiovascular exam: Present: RRR, +S1, +S2. Absent: diastolic murmur, gallop, rubs, systolic murmur - GI/Abdominal GI/Abdominal exam: Present: normal bowel sounds, soft, no peritoneal signs. Absent: distended, tenderness - Extremities Exam Extremities exam: Present: warm, radial pulses palpable and symmetrical. Absent : calf tenderness, cyanotic, pedal edema Additional comments: diffuse edema of right dorsal hand, forearm with significant tenderness over right hand - Neurological Exam Neurological exam: Present: CN II-XII intact, oriented X3, no focal deficits. Absent: pronater drift, facial droop, speech deficit Internal Medicine: Result - Labs CBC & Chem 7: 12/05/16 08:51 12/05/16 08:51 Labs: Short CBC 12/04/16 Range/Units 00:47 WBC 12.9 H (4.3-11.1) K/mcL Hgb 12.2 L (12.9-16.9) g/dL Hct 36.5 L (37.5-50.1) % Plt Count 216 D (140-400) K/mcL Neutrophils # 7.3 (1.6-8.9) K/mcL BMP 12/04/16 00:47 Sodium 133 L Potassium 3.5 D Chloride 103 Carbon Dioxide 25 BUN 13 Creatinine 0.75 Glucose 132 H Calcium 7.9 L Liver Function 12/04/16 Range/Units 00:47 Total Bilirubin 0.3 (0.2-1.2) mg/dL AST 19 (5-34) Units/L ALT 21 (0-55) Units/L Alkaline Phosphatase 125 (38-126) Units/L Albumin 1.9 L (3.5-5.0) g/dL - Impressions Impressions Thoracentesis Ultrasound 12/03/16 00:00 IMPRESSION: Successful ultrasound guided right thoracentesis. D/ / Krissy Adams MD / Krissy Adams MD Interpreting Provider: Krissy Adams MD Chest CT 12/04/16 11:00 IMPRESSION: 1. Significant increase in size of right pleural effusion which is likely at least partially loculated. This results in compressive atelectasis. Cannot exclude superimposed pneumonia within the right middle and right lower lobe consolidation 2. Multifocal ground-glass opacities in the left upper lobe and lingula are most likely infectious. There is atelectasis in the left lower lobe with trace left pleural effusion D/ / Saturnino Pedraza MD / Saturnino Pedraza MD Interpreting Provider: Saturnino Pedraza MD Consult Discharge Plan - Plan Referrals: NONE,PCP [Primary Care Provider] - (december 10 at residency clinic with dr dial at 3:00)
[2016-12-04] MEDS: Sennosides/Docusate Sodium TABLET PO SCH (20:00)
--- NOTE | 2016-12-04 21:50 | Venous Imaging Report ---
UE Venous Duplex Patient Name:Ritesh Garzon Order Number:[id number] Procedure Date:12/03/2016 Date:1985Age:31 yrs Gender:Male Location:[facility] Room #: [id number] Basin Cleaner:Estefany Nguyen Referring MD:Komal Palmer MD washer assembler:None Reading MD:Saturnino Andres MD , FACS Secondary Indications: Risk Factors Yes/No Hx of DVT No Hx of Chemotherapy No Anticoagulants No Impressions: Right upper extremity: normal superficial and deep exam. Left upper extremity: normal contralateral exam. Recommendations: After imaging the patient returned to their room. Findings Venous Duplex Results: Right: Venous imaging of the upper extremity reveals full patency and normal vessel compressibility of the right jugular, right subclavian, right axillary, right brachial, right cephalic, right basilic, right radial and right ulnar. Doppler signals in the evaluated veins were normal. Left: Venous imaging of the upper extremity reveals full patency and normal vessel compressibility of the left subclavian. Doppler signals in the evaluated veins were normal. Upper Extremity Venous Duplex Side Vein Compress Spontaneous Flow Augment Right Jugular Normal Yes Phasic Yes Right Subclavian Normal Yes Phasic Yes Right Axillary Normal Yes Phasic Yes Right Brachial Normal Yes Phasic Yes Right Cephalic Normal Yes Phasic Yes Right Basilic Normal Yes Phasic Yes Right Radial Normal Yes Phasic Yes Right Ulnar Normal Yes Phasic Yes Left Subclavian Normal Yes Phasic Yes Updated by Saturnino Andres MD, FACS on 12/04/2016 9:44:26 PM Saturnino Andres MD electronically signed on 12/04/2016 9:44:47 PM with status of Final
--- NOTE | 2016-12-04 23:16 | Venous Imaging Report ---
UE Venous Duplex Patient Name:Ritesh Garzon Order Number:[id number] Procedure Date:12/04/2016 Date:1985Age:31 yrs Gender:Male Location:[facility] Room #: [id number] Museum Specialist:Hien Fischer Referring MD:Azam Krueger MD quality and reliability engineer:None Reading MD:Saturnino Andres MD , FACS Primary Indications:r/o septic thrombophlebitis Secondary Indications: Risk Factors Yes/No Anticoagulants Yes Impressions: Upper extremity abnormal deep exam: right Ulnar vein acute thrombosis. Left upper extremity: normal contralateral exam. Recommendations: After imaging the patient returned to their room. Gave vascular preliminary to DANNY Bridges RN on 12/04/2016 at 22:15. Test completed on 12/04/2016 at 9:27:00 pm. Critical findings reported to RIANA Bridges by phone at 10:15:00 pm on 12/04/2016 by Hien Fischer. Findings Venous Duplex Results: Right: Venous imaging of the upper extremity reveals full patency and normal vessel compressibility of the right jugular, right subclavian, right axillary, right brachial, right cephalic, right basilic and right radial. Doppler signals in the evaluated veins were normal. The right ulnar demonstrates an incompressible vein. Flow was absent and it did not augment. Left: Venous imaging of the upper extremity reveals full patency and normal vessel compressibility of the left jugular. Doppler signals in the evaluated veins were normal. Upper Extremity Venous Duplex Side Vein Compress Spontaneous Flow Augment Right Jugular Normal yes Phasic yes Right Subclavian Normal yes Phasic yes Right Axillary Normal yes Phasic yes Right Brachial Normal yes Phasic yes Right Cephalic Normal yes Phasic yes Right Basilic Normal yes Phasic yes Right Radial Normal yes Phasic yes Right Ulnar None no Absent no Left Jugular Normal yes Phasic yes Updated by Saturnino Andres MD, FACS on 12/04/2016 11:09:21 PM Saturnino Andres MD electronically signed on 12/04/2016 11:09:47 PM with status of Final
[2016-12-05] MEDS: *HR* OxyCODONE/APAP 5/325 TABLET PO PRN
[2016-12-05] MEDS: Vancomycin 1,250 MG in D5% in Water 250 ML IVPB SCH ×3 (01:09→21:03)
[2016-12-05] MEDS: *HR* Morphine 2 MG/ML SYRINGE IVP PRN ×8 (01:10→22:58)
[2016-12-05] MEDS: Ketorolac 30 MG/ML VIAL IVP PRN ×3 (03:56→16:06)
[2016-12-05] MEDS: *HR* Heparin 5,000 UNIT/ML VIAL SQ SCH ×3 (06:01→20:47)
[2016-12-05] MEDS: Nicotine 21 MG PATCH.TD24 TD SCH (08:34)
[2016-12-05 09:08] LABS: Hematocrit 36.8 % (37.5-50.1); Mean Corpuscular HGB Conc 32.6 g/dL (31.6-35.5); Mean Corpuscular Hemoglobin 26.7 pg (28.0-33.3); Platelet Count 238 K/mcL (140-400); Red Blood Count 4.49 M/mcL (4.19-5.50); Red Cell Distribution Width 15.3 % (11.5-14.5)
[2016-12-05 09:20] LABS: Alanine Aminotransferase 17 Units/L (0-55); Albumin/Globulin Ratio 0.4 (1.1-2.2); Alkaline Phosphatase 107 Units/L (38-126); Aspartate Amino Transferase 19 Units/L (5-34); BUN/Creatinine Ratio 15 (6-26); Bilirubin,Total 0.5 mg/dL (0.2-1.2); Blood Urea Nitrogen 10 mg/dL (8-26); Calcium 8.2 mg/dL (8.6-10.8); Carbon Dioxide 24 mEq/L (19-29); Chloride 103 mEq/L (98-109); Globulin 4.7 g/dL (2.4-3.5); Glucose 95 mg/dL (70-99); Osmolality,Calculated 275 (280-300); Potassium 4.2 mEq/L (3.5-4.5); Sodium 133 mEq/L (136-145); Total Protein 6.5 g/dL (6.0-8.3); eGFR For African Americans > 60 (> 60); eGFR For Non-African Americans > 60 (> 60)
[2016-12-05 09:21] LABS: Albumin 1.8 g/dL (3.5-5.0)
--- NOTE | 2016-12-05 09:58 | Anesthesia Evaluation PreOp ---
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 right lung pneumonia with empyema) CNA HHA History: Denies Any Significant HX Other Medical History: Denies Any Significant HX Anesthesia History: No Prior Anesthetic Complications (no PSH) Alcohol Use: none Drug use: opiates, IV Drug Use Medications and Allergies HYDROcodone/Acet 5/325 mg [[place] 5-325 mg] 1 tab PO Q6H PRN #7 tab 11/29/16 [Rx] predniSONE [PredniSONE] 40 mg PO DAILY #10 tablet 11/29/16 [Rx] Allergies Penicillins Allergy (Verified 11/29/16 19:04) Anaphylaxis - Meds/Allergy Pre-op Review Medications Reviewed: Yes Allergies Reviewed: Yes Beta Blockers on Current Med List: No Anesthesia Results - Labs 12/05/16 08:51 12/05/16 08:51 - Imaging Chest x-ray: report reviewed Additional studies: echo shows EF 65%, normal wall motion, no valvular vegetations Anesthesia Exam Selected Entries 12/05/16 07:13 Temperature 98.9 F Pulse Rate 89 Respiratory Rate 16 Blood Pressure 121/90 O2 Sat by Pulse Oximetry 92 Weight: 75kg - HEENT Pupil (Motor): EOMI Mallampati: II Teeth: Normal Oral Opening: Greater than 3 - CNA HHA LOC: Oriented CNA HHA Motor: Normal RUE, Normal LUE, Normal RLE, Normal LLE, Normal Face CNA HHA Sensory: Normal: RUE, LUE, RLE, LLE, Face - Cardiac Rhythm: Regular Murmur: None - Pulmonary Breath Sounds: bilateral Clear (diminished on right) Respiratory Effort: Symmetrical Anesthesia Assess/Plan ASA Score: 3 Modified Hillside Scale for Level of Consciousness: Cooperative, oriented, and tranquil Anesthetic Plan: General Monitoring Plan: Standard Monitors Recovery Plan: ICU (discussed risks of GA, SUNDAR, potential need for a-line and possible prolonged intubation. Will not do epidural due to elevated white count)
[2016-12-05 10:01] LABS: INR 1.2; Prothrombin Time 12.7 Seconds (9.4-12.1)
[2016-12-05 10:01] LABS: Basophils # 0.3 K/mcL (0.0-0.2); Lymphocytes # 3.7 K/mcL (0.6-4.6); Monocytes # 0.6 K/mcL (0.0-1.3); Neutrophils # 10.3 K/mcL (1.6-8.9)
[2016-12-05 10:02] LABS: Platelet Estimate Normal (Normal)
[2016-12-05 10:03] LABS: Activated Partial Thrombo Time 26.8 Seconds (26.0-36.0)
[2016-12-05] MEDS ORDERED: Clindamycin 600 MG/50 ML 600 MG/50 ML IV.SOLN IVPB ONE (12:00)
--- NOTE | 2016-12-05 12:44 | Orthopedics Progress Note ---
Date of Encounter: 12/05/16 Time of Encounter: 12:30 - Assessment and Plan (1) Cellulitis Current Visit: Yes Status: Acute Right hand cellulitis. CT scan showed cellulitis with no abscess formation. Continue IV abx per hospitalist/ ID. Elevate hand. ROM of hand as tolerated. Qualifiers: Site of cellulitis: extremity Site of cellulitis of extremity: upper extremity Laterality: right Qualified Code(s): L03.113 - Cellulitis of right upper limb Subjective Principal diagnosis: right hand cellulitis Interval history: Patient feels that his swelling to right hand hand has decreased and he has improving ROM. Still complains of throbbing pain to hand. Objective Vital signs: Vital Signs Temp Pulse Resp BP Pulse Ox 12/05/16 11:22 98.8 F 77 14 133/79 93 12/05/16 07:13 98.9 F 89 16 121/90 92 12/05/16 04:50 78 16 129/82 12/04/16 20:26 98.8 F 87 19 124/78 96 12/04/16 20:15 96 12/04/16 16:09 98.0 F 81 14 140/86 90 Intake and Output 12/04/16 12/05/16 12/05/16 23:59 07:59 15:59 Intake Total 980 / 980 250 / 250 Balance 980 / 980 250 / 250 Intake: IV Fluids 500 / 500 250 / 250 Vancocin 1,250 MG In 500 / 500 250 / 250 Dextrose 5% 250 ML @ 166. 67 mls/hr IVPB Q8H AYLIN Rx #:[id number] Oral 480 / 480 Other: Meal Dinner Percent of Meal Consumed 35% # Voids 1 1 Weight 75.2 kg Patient Weight 12/05/16 23:59 Weight 75.2 kg - Labs CBC & BMP: 12/05/16 08:51 12/05/16 08:51 Labs: Abnormal lab results WBC 15.2 K/mcL (4.3-11.1) H 12/05/16 08:51 Hgb 12.0 g/dL (12.9-16.9) L 12/05/16 08:51 Hct 36.8 % (37.5-50.1) L 12/05/16 08:51 MCV 82.0 fL (83.0-100.0) L 12/05/16 08:51 MCH 26.7 pg (28.0-33.3) L 12/05/16 08:51 RDW 15.3 % (11.5-14.5) H 12/05/16 08:51 Immature Gran % 4.3 % (0-4) H 12/04/16 00:47 Band Neutrophils % 6.0 % (0-4) H 12/05/16 08:51 Metamyelocytes % 4.0 % (0) H 12/01/16 04:20 Myelocytes % 2.0 % (0) H 12/05/16 08:51 Neutrophils # 10.3 K/mcL (1.6-8.9) H 12/05/16 08:51 Basophils # 0.3 K/mcL (0.0-0.2) H 12/05/16 08:51 Reactive Lymphocytes Present (Not Present) A 12/03/16 04:19 Toxic Granulation Present (Not Present) A 12/03/16 04:19 Toxic Vacuolation Present (Not Present) A 12/01/16 04:20 Clumped Platelets Few (Not Present) A 12/01/16 04:20 Hypochromasia Present (Not Present) A 12/01/16 04:20 Anisocytosis 1+ (Not Present) A 12/02/16 01:06 PT 12.7 Seconds (9.4-12.1) H 12/05/16 08:50 Sodium 133 mEq/L (136-145) L 12/05/16 08:51 Creatinine 0.68 mg/dL (0.72-1.25) L 12/05/16 08:51 Calculated Osmolality 275 (280-300) L 12/05/16 08:51 Lactic Acid 2.6 mmol/L (0.5-2.2) H 11/30/16 20:18 Calcium 8.2 mg/dL (8.6-10.8) L 12/05/16 08:51 Albumin 1.8 g/dL (3.5-5.0) L 12/05/16 08:51 Globulin 4.7 g/dL (2.4-3.5) H 12/05/16 08:51 Albumin/Globulin Ratio 0.4 (1.1-2.2) L 12/05/16 08:51 Pleural Appearance Cloudy (Clear) A 12/03/16 15:00 Pleural Tot Nuc Cell 4630 TNC/mcL (0-1000) H 12/03/16 15:00 Streptococcus sp PCR DETECTED (Not Detect) A 11/30/16 12:53 Group A Strep DNA DETECTED (Not Detect) A 11/30/16 12:53 Consult Discharge Plan - Plan Referrals: NONE,PCP [Primary Care Provider] - (december 10 at residency clinic with dr dial at 3:00)
[2016-12-05] MEDS: Magnesium Oxide 400 MG TABLET PO SCH ×2 (15:16→20:46)
[2016-12-05] MEDS: Sennosides/Docusate Sodium TABLET PO SCH ×2 (15:16→20:46)
[2016-12-05] MEDS: D5% in 0.45% NACL 1,000 ML IVC SCH (16:07)
[2016-12-05] MEDS ORDERED: Heparin 1,000 UNITS/500 mL NS 500 ML ONE (17:03)
--- NOTE | 2016-12-05 17:11 | Infectious Disease Progress No ---
Date of Encounter: 12/05/16 Time of Encounter: 15:00 - Assessment and Plan (1) Empyema lung Current Visit: Yes Status: Acute large on the right thoracentesis reveals exudative fluid WBC count 5000 bacteria seen on gram stain but cultures pending d/w Dr. Krueger, going for decortication tomorrow (2) Severe sepsis Current Visit: Yes Status: Acute The patient had three SIRS criteria plus lactic acidosis on admission. Likely secondary to bacteremia. Improved. Tachycardia has resolved. The patient continues to be febrile. He continues to have leukocytosis, but his bandemia has improved. (3) Cellulitis Current Visit: Yes Status: Acute Qualifiers: Site of cellulitis: extremity Site of cellulitis of extremity: upper extremity Laterality: right Qualified Code(s): L03.113 - Cellulitis of right upper limb (4) Hand pain, right Current Visit: Yes Status: Acute (5) Septic embolism Current Visit: Yes Status: Acute with empyema worse CT scan going for decortication today d/w pulmonary and cardiothoracic (6) IV drug abuse Current Visit: Yes Status: Chronic (7) Hyponatremia Current Visit: Yes Status: Acute (8) Hypomagnesemia Current Visit: Yes Status: Acute (9) PNA (pneumonia) Current Visit: Yes Status: Acute Qualifiers: Pneumonia type: due to unspecified organism Laterality: unspecified laterality Lung location: lower lobe of lung Qualified Code(s): J18.1 - Lobar pneumonia, unspecified organism (10) Pleural effusion Current Visit: Yes Status: Acute (11) Bacteremia Current Visit: Yes Status: Acute Causative organism: GAS. Source unclear: Right hand cellulitis vs. PNA. Blood cultures drawn 11/30/16 are positive 2/2 sets. TTE negative for vegetations. The patient has three minor Modified Hutchison's Criteria. Repeat blood cultures x 2 sets now. Continue Vancomycin IV. Pharmacy to dose. Goal trough ~15. Trough this morning 12.1. Continue Rocephin 2 grams IV daily. Await repeat blood cultures. Duration of treatment depends on the clinical picture. Monitor renal function and for drug toxicity and dose-adjust antibiotics. - Subjective Interval history: Patient was seen and examined. Patient denies any new complaints. He reports swelling in his right hand hand has decreased and he has improving ROM. Patient is currently nothing by mouth awaiting surgery this afternoon. Family is at bedside Infect Dis PN-Objective Data - Labs CBC & Chem 7: 12/05/16 08:51 12/05/16 08:51 Labs: Laboratory Results - last 24 hr 12/04/16 12/05/16 12/05/16 15:18 08:50 08:51 WBC 15.2 H RBC 4.49 Hgb 12.0 L Hct 36.8 L MCV 82.0 L MCH 26.7 L MCHC 32.6 RDW 15.3 H Plt Count 238 MPV 11.0 Seg Neutrophils % 62.0 Band Neutrophils % 6.0 H Lymphocytes % 24.0 Monocytes % 4.0 Basophils % 2.0 Myelocytes % 2.0 H Neutrophils # 10.3 H Lymphocytes # 3.7 Monocytes # 0.6 Basophils # 0.3 H Platelet Estimate Normal PT 12.7 H INR 1.2 APTT 26.8 Sodium Potassium Chloride Carbon Dioxide BUN Creatinine Est GFR ( Amer) Est GFR (Non-Af Amer) BUN/Creatinine Ratio Glucose Calculated Osmolality Calcium Total Bilirubin AST ALT Alkaline Phosphatase Serum Total Protein Albumin Globulin Albumin/Globulin Ratio Vancomycin Trough Blood Type O POSITIVE Antibody Screen NEGATIVE Crossmatch See Detail 12/05/16 12/05/16 08:51 08:51 WBC RBC Hgb Hct MCV MCH MCHC RDW Plt Count MPV Seg Neutrophils % Band Neutrophils % Lymphocytes % Monocytes % Basophils % Myelocytes % Neutrophils # Lymphocytes # Monocytes # Basophils # Platelet Estimate PT INR APTT Sodium 133 L Potassium 4.2 Chloride 103 Carbon Dioxide 24 BUN 10 Creatinine 0.68 L Est GFR ( Amer) > 60 Est GFR (Non-Af Amer) > 60 BUN/Creatinine Ratio 15 Glucose 95 Calculated Osmolality 275 L Calcium 8.2 L Total Bilirubin 0.5 AST 19 ALT 17 Alkaline Phosphatase 107 Serum Total Protein 6.5 Albumin 1.8 L Globulin 4.7 H Albumin/Globulin Ratio 0.4 L Vancomycin Trough 16.7 Blood Type Antibody Screen Crossmatch Cultures: Cultures 12/04/16 00:47 Blood Culture - Preliminary Peripheral Venipuncture No growth. 12/04/16 00:47 Blood Culture - Preliminary Peripheral Venipuncture No growth. 12/03/16 15:00 Body Fluid Culture - Preliminary Pleural Fluid 12/03/16 15:00 Acid Fast Stain - Final Pleural Fluid Serology 08/08/17 08/07/17 08/07/17 Range/Units 00:47 15:00 15:00 Pleural Fluid Volume 500.0 mL Pleural Appearance Cloudy A (Clear) Pleural RBC 0.002 (0.000 - 0.002) M/mcL Pleural Tot Nuc Cell 4630 H (0-1000) TNC/mcL Pleural Neutrophils 91.0 % Pleural Band Neuts Test Not Performed Pleural Eosinophils Test Not Performed Pleural Basophils Test Not Performed Pleural Lymphocytes % 7.0 % Pleural Monocytes % 2.0 % Pleural Other Cells % Test Not Performed Pleural Total Protein 3.1 (No Ref Range) g/dL Pleural LDH 1758 (No Ref Range) Units/L Pleural Glucose 13 (No Ref Range) mg/dL HIV Ag/Ab Combo Qual Nonreactive (Nonreactive) - Impressions Impressions Upper Extremity CT 12/04/16 16:45 IMPRESSION: 1. Continued evidence of extensive subcutaneous edema, greater dorsally. No obvious abscess is identified. No soft tissue gas is seen. Again, evaluation for abscess is limited without intravenous contrast. D/ / Eleazar Hoover MD / Eleazar Hoover MD Interpreting Provider: Eleazar Hoover MD Exam - Constitutional Vitals: Temp Pulse Resp BP Pulse Ox 101.6 F H 87 16 148/79 95 12/05/16 16:31 12/05/16 16:31 12/05/16 16:31 12/05/16 16:31 12/05/16 16:31 General appearance: cooperative, no acute distress, no febrile - Head Head exam: Present: atraumatic, normal inspection, normocephalic - Eye Eye exam: Present: PERRL, conjuntiva pink - ENT ENT exam: Present: mucous membranes moist, normal oropharynx Additional comments: No conjunctival hemorrhage - Neck Neck exam: Present: full ROM, normal inspection. Absent: tenderness, thyromegaly - Respiratory Respiratory exam: Present: decreased breath sounds. Absent: accessory muscle use Additional comments: Bilaterally - Cardiovascular Cardiovascular exam: Present: RRR, +S1, +S2 - GI/Abdominal GI/Abdominal exam: Present: normal bowel sounds, soft. Absent: firm, guarding, rebound - Extremities Exam Extremities exam: Present: full ROM. Absent: normal inspection Additional comments: Right upper extremity 3+ edema, pain with range of motion - Neurological Exam Neurological exam: Present: alert, oriented X3. Absent: altered, motor sensory deficit - Psychiatric Psychiatric exam: Present: anxious, normal affect - Skin Skin exam: Present: dry, erythema, warm. Absent: rash Consult Discharge Plan - Plan Referrals: NONE,PCP [Primary Care Provider] - (december 10 at residency clinic with dr dial at 3:00)
--- NOTE | 2016-12-05 17:17 | Infectious Disease Progress No ---
Date of Encounter: 12/05/16 Time of Encounter: 17:15 - Assessment and Plan (1) Empyema lung Current Visit: Yes Status: Acute large on the right thoracentesis reveals exudative fluid WBC count 5000 bacteria seen on gram stain but cultures pending d/w Dr. Krueger, going for decortication today (2) Severe sepsis Current Visit: Yes Status: Acute The patient had three SIRS criteria plus lactic acidosis on admission. Likely secondary to bacteremia. Improved. Tachycardia has resolved. The patient continues to be febrile. He continues to have leukocytosis, but his bandemia has improved. (3) Bacteremia Current Visit: Yes Status: Acute Causative organism: GAS. Source unclear: Right hand cellulitis vs. PNA. Blood cultures drawn 11/30/16 are positive 2/2 sets. TTE negative for vegetations. The patient has three minor Modified Hutchison's Criteria. Repeat blood cultures x 2 sets now. Continue Vancomycin IV. Pharmacy to dose. Goal trough ~15. Trough this morning 12.1. Continue Rocephin 2 grams IV daily. Await repeat blood cultures. Duration of treatment depends on the clinical picture. Monitor renal function and for drug toxicity and dose-adjust antibiotics. (4) Septic embolism Current Visit: Yes Status: Acute with empyema worse CT scan going for decortication tomorrow d/w pulmonary and cardiothoracic (5) Cellulitis Current Visit: Yes Status: Acute Qualifiers: Qualified Code(s): L03.113 - Cellulitis of right upper limb (6) PNA (pneumonia) Current Visit: Yes Status: Acute Qualifiers: Qualified Code(s): J18.1 - Lobar pneumonia, unspecified organism (7) Pleural effusion Current Visit: Yes Status: Acute (8) Hand pain, right Current Visit: Yes Status: Acute (9) Lactic acidosis Current Visit: Yes Status: Resolved (10) Hyponatremia Current Visit: Yes Status: Acute (11) Hypomagnesemia Current Visit: Yes Status: Acute (12) IV drug abuse Current Visit: Yes Status: Chronic - Subjective Interval history: patient seen and examined. He is frustrated that he was told he had a surgery at 1pm and his surgery was pushed back. breathing okay hand pain improved - was seen by ortho appreciate their recommendations Infect Dis PN-Objective Data - Labs CBC & Chem 7: 12/05/16 08:51 12/05/16 08:51 Labs: Laboratory Results - last 24 hr 12/04/16 12/05/16 12/05/16 15:18 08:50 08:51 WBC 15.2 H RBC 4.49 Hgb 12.0 L Hct 36.8 L MCV 82.0 L MCH 26.7 L MCHC 32.6 RDW 15.3 H Plt Count 238 MPV 11.0 Seg Neutrophils % 62.0 Band Neutrophils % 6.0 H Lymphocytes % 24.0 Monocytes % 4.0 Basophils % 2.0 Myelocytes % 2.0 H Neutrophils # 10.3 H Lymphocytes # 3.7 Monocytes # 0.6 Basophils # 0.3 H Platelet Estimate Normal PT 12.7 H INR 1.2 APTT 26.8 Sodium Potassium Chloride Carbon Dioxide BUN Creatinine Est GFR ( Amer) Est GFR (Non-Af Amer) BUN/Creatinine Ratio Glucose Calculated Osmolality Calcium Total Bilirubin AST ALT Alkaline Phosphatase Serum Total Protein Albumin Globulin Albumin/Globulin Ratio Vancomycin Trough Blood Type O POSITIVE Antibody Screen NEGATIVE Crossmatch See Detail 12/05/16 12/05/16 08:51 08:51 WBC RBC Hgb Hct MCV MCH MCHC RDW Plt Count MPV Seg Neutrophils % Band Neutrophils % Lymphocytes % Monocytes % Basophils % Myelocytes % Neutrophils # Lymphocytes # Monocytes # Basophils # Platelet Estimate PT INR APTT Sodium 133 L Potassium 4.2 Chloride 103 Carbon Dioxide 24 BUN 10 Creatinine 0.68 L Est GFR ( Amer) > 60 Est GFR (Non-Af Amer) > 60 BUN/Creatinine Ratio 15 Glucose 95 Calculated Osmolality 275 L Calcium 8.2 L Total Bilirubin 0.5 AST 19 ALT 17 Alkaline Phosphatase 107 Serum Total Protein 6.5 Albumin 1.8 L Globulin 4.7 H Albumin/Globulin Ratio 0.4 L Vancomycin Trough 16.7 Blood Type Antibody Screen Crossmatch Cultures: Cultures 12/04/16 00:47 Blood Culture - Preliminary Peripheral Venipuncture No growth. 12/04/16 00:47 Blood Culture - Preliminary Peripheral Venipuncture No growth. 12/03/16 15:00 Body Fluid Culture - Preliminary Pleural Fluid 12/03/16 15:00 Acid Fast Stain - Final Pleural Fluid Serology 12/04/16 12/03/16 12/03/16 Range/Units 00:47 15:00 15:00 Pleural Fluid Volume 500.0 mL Pleural Appearance Cloudy A (Clear) Pleural RBC 0.002 (0.000 - 0.002) M/mcL Pleural Tot Nuc Cell 4630 H (0-1000) TNC/mcL Pleural Neutrophils 91.0 % Pleural Band Neuts Test Not Performed Pleural Eosinophils Test Not Performed Pleural Basophils Test Not Performed Pleural Lymphocytes % 7.0 % Pleural Monocytes % 2.0 % Pleural Other Cells % Test Not Performed Pleural Total Protein 3.1 (No Ref Range) g/dL Pleural LDH 1758 (No Ref Range) Units/L Pleural Glucose 13 (No Ref Range) mg/dL HIV Ag/Ab Combo Qual Nonreactive (Nonreactive) - Impressions Impressions Upper Extremity CT 12/04/16 16:45 IMPRESSION: 1. Continued evidence of extensive subcutaneous edema, greater dorsally. No obvious abscess is identified. No soft tissue gas is seen. Again, evaluation for abscess is limited without intravenous contrast. D/ / Eleazar Hoover MD / Eleazar Hoover MD Interpreting Provider: Eleazar Hoover MD Exam - Constitutional Vitals: Temp Pulse Resp BP Pulse Ox 101.6 F H 87 16 148/79 95 12/05/16 16:31 12/05/16 16:31 12/05/16 16:31 12/05/16 16:31 12/05/16 16:31 General appearance: no acute distress, no febrile - Head Head exam: Present: atraumatic, normocephalic - Neck Neck exam: Present: full ROM. Absent: tenderness - Respiratory Additional comments: decreased breath sounds at the right side. chest expanding symmetrically - Cardiovascular Cardiovascular exam: Present: RRR, +S1, +S2 - GI/Abdominal GI/Abdominal exam: Present: normal bowel sounds, soft - Extremities Exam Additional comments: right upper extremity pain and swelling. no obvious signs of septic arthritis; Consult Discharge Plan - Plan Referrals: NONE,PCP [Primary Care Provider] - (december 10 at residency clinic with dr dial at 3:00)
--- NOTE | 2016-12-05 17:48 | Internal Med Progress Note ---
Date of Encounter: 12/05/16 Time of Encounter: 13:00 - Assessment and plan (1) DVT (deep venous thrombosis) Current Visit: Yes Status: Acute Assessment and plan: Plan for anticoagulation as above; this event is likely related to IV drug use, although patient denies recent use; Qualifiers: DVT location: upper extremity Affected thrombotic vein of extremity: ulnar Chronicity: acute Laterality: right Qualified Code(s): I82.621 - Acute embolism and thrombosis of deep veins of right upper extremity (2) Empyema Current Visit: Yes Status: Acute (3) Severe sepsis Current Visit: Yes Status: Acute Assessment and plan: Patient presented with fever, tachycardia, leukocytosis and mild lactic acidosis and noted to have bilateral pneumonia. Continue IV antibiotics, remaining plan as below. (4) Gram-positive bacteremia Current Visit: Yes Status: Acute Assessment and plan: Secondary to likely IV drug use. 2 out of 2 initial blood cultures grew group A Streptococcus. Repeat blood cultures are so far negative; continue IV Rocephin and vancomycin. Infectious diseases on board. (5) Cellulitis Current Visit: Yes Status: Acute Assessment and plan: Noted to have hand cellulitis with reportedly worsening pain and swelling. Repeat venous Doppler of right upper extremity from 12/04/16 shows acute right ulnar DVT. Case d/w CT Surgery- per Vascular surgery, it is not amenable to extraction; patient may be started on anticoagulation with Heparin or Lovenox after the planned thoracotomy today; Hand surgery f/up noted- recommend no intervention as CT hand shows no e/o- abscess. Pain control with scheduled IV Toradol, when necessary IV morphine. Right upper extremity elevation. Qualifiers: Site of cellulitis: extremity Site of cellulitis of extremity: upper extremity Laterality: right Qualified Code(s): L03.113 - Cellulitis of right upper limb (6) PNA (pneumonia) Current Visit: Yes Status: Acute Assessment and plan: CT chest shows bilateral pneumonia with right-sided pleural effusion. Pulmonology was consulted and patient underwent right-sided thoracentesis, consistent with exudative fluid. Repeat CT chest shows reaccumulation of fluid , possible loculation with compressive atelectasis. CT surgery consulted, plan for right thoracotomy and decortication today. Continue IV antibiotics and supplemental oxygen as needed. Qualifiers: Pneumonia type: due to unspecified organism Laterality: unspecified laterality Lung location: lower lobe of lung Qualified Code(s): J18.1 - Lobar pneumonia, unspecified organism (7) Septic embolism Current Visit: Yes Status: Acute (8) Tobacco abuse Current Visit: Yes Status: Chronic Assessment and plan: Continue nicotine transdermal patch. (9) IV drug abuse Current Visit: Yes Status: Chronic - Subjective Interval history: Improving right hand pain and swelling; reports severe right lower chest pain; no fever spikes in last 24hours; awaiting CT surgery today; - Constitutional Vitals: Temp Pulse Resp BP Pulse Ox 101.6 F H 87 16 148/79 95 12/05/16 16:31 12/05/16 16:31 12/05/16 16:31 12/05/16 16:31 12/05/16 16:31 General appearance: Present: A&O X 3, answers questions appropriately - Respiratory Respiratory exam: Present: decreased breath sounds (on the right side). Absent : accessory muscle use, rales, rhonchi, wheezes - Cardiovascular Cardiovascular exam: Present: RRR, +S1, +S2. Absent: diastolic murmur, gallop, rubs, systolic murmur - GI/Abdominal GI/Abdominal exam: Present: normal bowel sounds, soft, no peritoneal signs. Absent: distended, tenderness - Extremities Exam Extremities exam: Present: warm, radial pulses palpable and symmetrical. Absent : calf tenderness, cyanotic, pedal edema Additional comments: right hand diffuse edema and tenderness- improving - Neurological Exam Neurological exam: Present: CN II-XII intact, oriented X3, no focal deficits. Absent: pronater drift, facial droop, speech deficit Internal Medicine: Result - Labs CBC & Chem 7: 12/06/16 04:10 12/06/16 04:10 Labs: Short CBC 12/05/16 Range/Units 08:51 WBC 15.2 H (4.3-11.1) K/mcL Hgb 12.0 L (12.9-16.9) g/dL Hct 36.8 L (37.5-50.1) % Plt Count 238 (140-400) K/mcL Neutrophils # 10.3 H (1.6-8.9) K/mcL BMP 12/05/16 08:51 Sodium 133 L Potassium 4.2 Chloride 103 Carbon Dioxide 24 BUN 10 Creatinine 0.68 L Glucose 95 Calcium 8.2 L Liver Function 12/05/16 Range/Units 08:51 Total Bilirubin 0.5 (0.2-1.2) mg/dL AST 19 (5-34) Units/L ALT 17 (0-55) Units/L Alkaline Phosphatase 107 (38-126) Units/L Albumin 1.8 L (3.5-5.0) g/dL - ABG Interpretation ABG results: PT/INR, D-dimer PT 12.7 Seconds (9.4-12.1) H 12/05/16 08:50 - Impressions Impressions Upper Extremity CT 12/04/16 16:45 IMPRESSION: 1. Continued evidence of extensive subcutaneous edema, greater dorsally. No obvious abscess is identified. No soft tissue gas is seen. Again, evaluation for abscess is limited without intravenous contrast. D/ / Eleazar Hoover MD / Eleazar Hoover MD Interpreting Provider: Eleazar Hoover MD Consult Discharge Plan - Plan Referrals: NONE,PCP [Primary Care Provider] - (december 10 at residency clinic with dr dial at 3:00)
[2016-12-05] MEDS ORDERED: *HR* Rocuronium Bromide 50 MG/5 ML VIAL ONE (18:02)
[2016-12-05] MEDS ORDERED: *HR* Phenylephrine 10 MG/ML VIAL ONE (18:02)
[2016-12-05] MEDS ORDERED: *HR* FentaNYL (PF) 250 MCG/5 ML VIAL ONE (18:03)
[2016-12-05] MEDS ORDERED: *HR* Propofol 200 MG/20 ML VIAL IVP ONE (18:03)
[2016-12-05] MEDS ORDERED: *HR* Midazolam HCl 5 MG/5 ML VIAL IVP ONE (18:03)
[2016-12-05] MEDS ORDERED: Clindamycin 900 MG/50 ML 900 MG/50 ML IV.SOLN IVPB ONE (18:28)
[2016-12-05] MEDS ORDERED: Dexamethasone 4 MG/ML VIAL ONE (19:12)
[2016-12-05] MEDS ORDERED: Ondansetron 4 MG/2 ML VIAL ONE (19:12)
[2016-12-05] MEDS ORDERED: Ketorolac 30 MG/ML VIAL ONE (19:13)
[2016-12-05] MEDS ORDERED: *HR* Morphine 10 MG/ML VIAL ONE (19:25)
[2016-12-05] MEDS ORDERED: Naloxone 0.4 MG/ML INJ IVP PRN (19:50)
--- NOTE | 2016-12-05 19:59 | Operative Note ---
Date of procedure: 12/05/16 Procedure in Detail: Preoperative diagnosis. Right sided empyema. Postoperative diagnosis. Same. Procedures. Right anterior thoracotomy with drainage of empyema, decortication of the lung and culture of the pleural fluid. Surgeon. Dr. Azam Krueger. Anesthesia. Dr. Bryce Elam. The patient is a 31-year-old gentleman with a history of IV drug abuse. He presented with a septic thrombophlebitis of the deep system of his right hand and forearm. This will be treated with IV antibiotics and eventually heparin. He also had septic thromboemboli to his right lung. Echocardiogram of the heart revealed no endocarditis. Initially he had a small right pleural effusion. This was tapped and revealed empyema. CT scan of the chest done yesterday revealed almost complete whiteout of the right chest. He was referred for surgery. He was brought to the operating room where he underwent a general anesthetic. Placement of a double-lumen endotracheal tube. He was prepped and draped with the right side up. A standard right anterior thoracotomy was performed. Serratus anterior and latissimus dorsi muscles were divided with the Bovie electrocautery. Intercostal musculature was bovied off the top of the rib and the pleural space was entered. There was turbid fluid in the space. Eventually a total of 2300 mL of fluid was obtained. This was cultured both aerobically and anaerobically. There were fibrinous adhesions between the lung and the chest wall. These were taken down sharply with the Metzenbaum scissors and bluntly. The lung was freed up from the apex of the chest down to the diaphragm. From the mediastinum anteriorly to the spine posteriorly. Femoris material was removed from the lung surface and the lung was decorticated. At the conclusion of this, the lung was reinflated and filled the pleural space nicely. We did not use intercostal blocks because of the infection. 2 chest tubes were left. A 36 straight to the apex of the chest. A 30 triangle chest tube along the diaphragm. Intercostal sews were made at a # 1 Vicryl in [id number] fashion. Serratus anterior and latissimus dorsi muscles were sewn with #1 Vicryl. Subcutaneous tissues with a 2-0 Vicryl. Skin with a 3-0 Vicryl subcuticular stitch. The patient tolerated the procedure well and was returned to intensive care unit in satisfactory and stable condition.
[2016-12-05] MEDS: 0.9 % Sodium Chloride 1,000 ML IVC SCH (21:04)
[2016-12-05 21:13] LABS: ABG Base Excess 1.8 mEq/L (-2.0 to 3.0); ABG HCO3 27.2 mEQ/L (21-27); ABG Oxygen Saturation 93 % (95-98); ABG PCO2 45 mmHg (35-45); ABG PH 7.39 pH Units (7.32-7.45); ABG PO2 66 mmHg (85-104); ABG TCO2 28.6 mEq/L (20-26)
[2016-12-05] MEDS: Albuterol 2.5 MG/3 ML NEBULIZER IH SCH ×2 (21:13→23:50)
[2016-12-05 21:14] LABS: Blood Gas FiO2 26 %
[2016-12-05 21:24] LABS: Hematocrit 35.7 % (37.5-50.1); Hemoglobin 11.8 g/dL (12.9-16.9); Mean Corpuscular HGB Conc 33.1 g/dL (31.6-35.5); Mean Corpuscular Hemoglobin 27.3 pg (28.0-33.3); Mean Corpuscular Volume 82.6 fL (83.0-100.0); Mean Platelet Volume 10.6 fL (9.4-12.4); Platelet Count 328 K/mcL (140-400); Red Blood Count 4.32 M/mcL (4.19-5.50); Red Cell Distribution Width 15.3 % (11.5-14.5)
[2016-12-05 22:02] LABS: Monocytes # 0.9 K/mcL (0.0-1.3); Neutrophils # 17.7 K/mcL (1.6-8.9)
[2016-12-05 22:03] LABS: Platelet Estimate Normal (Normal); Reactive Lymphocytes Present (Not Present)
[2016-12-06] MEDS: *HR* Morphine 2 MG/ML SYRINGE IVP PRN ×2 (01:08→02:26)
[2016-12-06] MEDS: *HR* OxyCODONE/APAP 5/325 TABLET PO PRN ×4 (01:42→23:11)
[2016-12-06] MEDS: D5% in 0.45% NACL 1,000 ML IVC SCH (02:24)
[2016-12-06] MEDS: 0.9 % Sodium Chloride 1,000 ML IVC SCH (03:17)
[2016-12-06] MEDS: *HR* HYDROmorphone 2 MG/ML SYRINGE IVP PRN ×6 (04:04→21:34)
[2016-12-06 04:26] LABS: Basophils % 0.6 %
[2016-12-06 04:28] LABS: Basophils # 0.2 K/mcL (0.0-0.2); Hemoglobin 12.8 g/dL (12.9-16.9); Immature Granulocytes % 3.9 % (0-4); Lymphocytes # 2.3 K/mcL (0.6-4.6); Lymphocytes % 8.6 %; Mean Corpuscular HGB Conc 33.7 g/dL (31.6-35.5); Mean Corpuscular Hemoglobin 27.8 pg (28.0-33.3); Mean Corpuscular Volume 82.4 fL (83.0-100.0); Monocytes % 3.8 %; Neutrophils # 22.3 K/mcL (1.6-8.9); Platelet Count 428 K/mcL (140-400); Red Blood Count 4.61 M/mcL (4.19-5.50); Red Cell Distribution Width 15.6 % (11.5-14.5); Segmented Neutrophils % 83.1 %
[2016-12-06 04:40] LABS: BUN/Creatinine Ratio 16 (6-26); Blood Urea Nitrogen 13 mg/dL (8-26); Calcium 8.1 mg/dL (8.6-10.8); Carbon Dioxide 25 mEq/L (19-29); Chloride 102 mEq/L (98-109); Glucose 176 mg/dL (70-99); Osmolality,Calculated 280 (280-300); Sodium 133 mEq/L (136-145); eGFR For African Americans > 60 (> 60); eGFR For Non-African Americans > 60 (> 60)
[2016-12-06 04:50] LABS: Large Platelets Present (Not Present); Platelet Estimate Normal (Normal)
[2016-12-06] MEDS: Albuterol 2.5 MG/3 ML NEBULIZER IH SCH ×6 (04:51→23:11)
[2016-12-06 04:58] LABS: ABG HCO3 27.3 mEQ/L (21-27); ABG Oxygen Saturation 91 % (95-98); ABG PCO2 44 mmHg (35-45); ABG PO2 61 mmHg (85-104); ABG TCO2 28.7 mEq/L (20-26); Blood Gas FiO2 21 %
[2016-12-06 05:00] LABS: Potassium 5.5 mEq/L (3.5-4.5)
[2016-12-06] MEDS: *HR* Heparin 5,000 UNIT/ML VIAL SQ SCH (05:02)
[2016-12-06] MEDS: Vancomycin 1,250 MG in D5% in Water 250 ML IVPB SCH ×3 (05:02→21:34)
--- NOTE | 2016-12-06 06:52 | Pulmonology Progress Note ---
Date of Encounter: 12/06/16 Time of Encounter: 06:52 Assessment and Plan (1) Group A streptococcal infection Current Visit: Yes Status: Acute Impression: 1. GAS bactermia. 2. Empyema of right lung s/p surgical decortication 3. Sepsis 4. Septic Thrombophlebitis with DVT 5. Mild Hyperkalemia 6. Drug Abuse Plan: -Continue vancomycin and Rocephin infectious disease following -Clinically doing well chest tube management per CTS -Improving clinically continue antimicrobials fluids as needed -Start heparin infusion -Likely related to postoperative volume depletion fluid bolus given with improvement we will continue to monitor -Social service consult Stable for transfer from ICU to general medical floor for ongoing management (2) PNA (pneumonia) Current Visit: Yes Status: Acute Qualifiers: Pneumonia type: due to unspecified organism Laterality: unspecified laterality Lung location: lower lobe of lung Qualified Code(s): J18.1 - Lobar pneumonia, unspecified organism (3) Septic thrombophlebitis of upper extremity Current Visit: Yes Status: Acute (4) Bacteremia Current Visit: Yes Status: Acute (5) Hyperkalemia Current Visit: Yes Status: Acute (6) Empyema Current Visit: Yes Status: Acute Subjective Principal diagnosis: right hand cellulitis Interval history: One for right-sided decortication yesterday clinically quite stable has had decreased swelling in the right strategy pain is been controlled afebrile overnight Objective PUL Vital signs: Last Vital Signs Temp 98.2 F 12/06/16 05:15 Pulse 94 12/06/16 06:00 Resp 14 12/06/16 06:00 BP 119/66 12/06/16 06:00 Pulse Ox 96 12/06/16 06:00 General appearance: no acute distress Effort: normal, other (Right chest tubes noted with serous sanguinous drainage) Cardiovascular: regular rate and rhythm Gastrointestinal: normoactive bowel sounds, soft, non-tender Musculoskeletal: other (He has swelling and pain to palpation over the hand and forearm and elbow) normal mental status, non-focal exam mood appropriate Results - Laboratory Findings CBC and BMP: 12/06/16 04:10 12/06/16 09:34 ABG ABG pH 7.40 pH Units (7.32-7.45) 12/06/16 04:45 ABG pCO2 44 mmHg (35-45) 12/06/16 04:45 ABG pO2 61 mmHg (85-104) L 12/06/16 04:45 ABG O2 Saturation 91 % (95-98) L 12/06/16 04:45 PT/INR, D-dimer PT 12.7 Seconds (9.4-12.1) H 12/05/16 08:50 Abnormal lab findings: Abnormal lab results WBC 26.8 K/mcL (4.3-11.1) H 12/06/16 04:10 Hgb 12.8 g/dL (12.9-16.9) L 12/06/16 04:10 MCV 82.4 fL (83.0-100.0) L 12/06/16 04:10 MCH 27.8 pg (28.0-33.3) L 12/06/16 04:10 RDW 15.6 % (11.5-14.5) H 12/06/16 04:10 Plt Count 428 K/mcL (140-400) H 12/06/16 04:10 Band Neutrophils % 6.0 % (0-4) H 12/05/16 08:51 Metamyelocytes % 4.0 % (0) H 12/01/16 04:20 Myelocytes % 2.0 % (0) H 12/05/16 08:51 Neutrophils # 22.3 K/mcL (1.6-8.9) H 12/06/16 04:10 Reactive Lymphocytes Present (Not Present) A 12/05/16 21:10 Toxic Granulation Present (Not Present) A 12/03/16 04:19 Toxic Vacuolation Present (Not Present) A 12/01/16 04:20 Clumped Platelets Few (Not Present) A 12/01/16 04:20 Large Platelets Present (Not Present) A 12/06/16 04:10 Hypochromasia Present (Not Present) A 12/01/16 04:20 Anisocytosis 1+ (Not Present) A 12/02/16 01:06 PT 12.7 Seconds (9.4-12.1) H 12/05/16 08:50 ABG pO2 61 mmHg (85-104) L 12/06/16 04:45 ABG HCO3 27.3 mEQ/L (21-27) H 12/06/16 04:45 ABG Total CO2 28.7 mEq/L (20-26) H 12/06/16 04:45 ABG O2 Saturation 91 % (95-98) L 12/06/16 04:45 Sodium 133 mEq/L (136-145) L 12/06/16 04:10 Potassium 5.5 mEq/L (3.5-4.5) H D 12/06/16 04:10 Glucose 176 mg/dL (70-99) H 12/06/16 04:10 POC Glucose 95 (58-89) H 12/05/16 20:01 Lactic Acid 2.6 mmol/L (0.5-2.2) H 11/30/16 20:18 Calcium 8.1 mg/dL (8.6-10.8) L 12/06/16 04:10 Albumin 1.8 g/dL (3.5-5.0) L 12/05/16 08:51 Globulin 4.7 g/dL (2.4-3.5) H 12/05/16 08:51 Albumin/Globulin Ratio 0.4 (1.1-2.2) L 12/05/16 08:51 Pleural Appearance Cloudy (Clear) A 12/03/16 15:00 Pleural Tot Nuc Cell 4630 TNC/mcL (0-1000) H 12/03/16 15:00 Streptococcus sp PCR DETECTED (Not Detect) A 11/30/16 12:53 Group A Strep DNA DETECTED (Not Detect) A 11/30/16 12:53 - Microbiology Findings Microbiology Findings: Microbiology, Last 48 Hours 12/04/16 00:47 Blood Culture - Preliminary Peripheral Venipuncture No growth. 12/04/16 00:47 Blood Culture - Preliminary Peripheral Venipuncture No growth. 12/03/16 15:00 Body Fluid Culture - Preliminary Pleural Fluid 12/03/16 15:00 Acid Fast Stain - Final Pleural Fluid - Diagnostic Findings Chest x-ray: report reviewed, image reviewed - Clinical Findings Intake & Output: Intake & Output 12/05/16 12/05/16 12/06/16 15:59 23:59 07:59 Intake Total 400 / 400 1300 / 1300 1000 / 1000 Output Total 2530 / 2530 Balance 400 / 400 -1230 / -1230 1000 / 1000 Weight 72.6 kg Consult Discharge Plan - Plan Referrals: NONE,PCP [Primary Care Provider] - (december 10 at residency clinic with dr dial at 3:00)
--- NOTE | 2016-12-06 07:22 | Cardiothoracic Progress Note ---
Date of Encounter: 12/06/16 Time of Encounter: 07:21 - Assessment and plan (1) Cellulitis Current Visit: Yes Status: Acute We will transfer the patient to the floor. He is okay to start a heparin drip at any point from my standpoint. Qualifiers: Site of cellulitis: extremity Site of cellulitis of extremity: upper extremity Laterality: right Qualified Code(s): L03.113 - Cellulitis of right upper limb - Subjective Interval history: The patient is extubated and doing well. Vital Signs, Last 4 Hours Temp Pulse Resp BP Pulse Ox 12/06/16 06:00 94 14 119/66 96 12/06/16 05:15 98.2 F 12/06/16 04:59 98.2 F 90 14 125/66 96 12/06/16 04:53 16 96 12/06/16 04:00 89 14 125/66 96 Oxgyen Flow Rate Oxygen Flow Rate (LPM) 1.5 Clinical Data, last 8 Hours Output, Chest Tube Drainage 100 Amount [Right Mediastinal #2] Output, Chest Tube Drainage 40 Amount [Right Mediastinal #1] Weight 12/04/16 12/05/16 12/06/16 23:59 23:59 23:59 Weight 74.4 kg 72.6 kg Lungs are clear to percussion and auscultation. Heart is in a normal sinus rhythm. Chest tube drainage is minimal and is serosanguineous. His incision is healing well without signs of infection. - Labs 12/06/16 04:10 12/06/16 04:10 Lab Results, Last 24 hours 12/05/16 12/05/16 12/05/16 08:50 08:51 08:51 WBC 15.2 H Hgb 12.0 L Hct 36.8 L Plt Count 238 INR 1.2 APTT 26.8 Sodium 133 L Potassium 4.2 Chloride 103 Carbon Dioxide 24 BUN 10 Creatinine 0.68 L Glucose 95 Calcium 8.2 L Total Bilirubin 0.5 AST 19 ALT 17 Alkaline Phosphatase 107 12/05/16 12/06/16 12/06/16 21:10 04:10 04:10 WBC 21.6 H 26.8 H Hgb 11.8 L 12.8 L Hct 35.7 L 38.0 Plt Count 328 428 H INR APTT Sodium 133 L Potassium 5.5 H D Chloride 102 Carbon Dioxide 25 BUN 13 Creatinine 0.80 Glucose 176 H Calcium 8.1 L Total Bilirubin AST ALT Alkaline Phosphatase Consult Discharge Plan - Plan Referrals: NONE,PCP [Primary Care Provider] - (december 10 at residency clinic with dr dial at 3:00)
[2016-12-06] MEDS ORDERED: Ipratropium/Albuterol Neb 3 ML IH PRN (07:51)
[2016-12-06] MEDS ORDERED: Acetaminophen 325 MG TABLET PO PRN (07:51)
[2016-12-06] MEDS ORDERED: Naloxone 0.4 MG/ML INJ IVP PRN (07:51)
[2016-12-06] MEDS ORDERED: Ondansetron 4 MG/2 ML VIAL IVP PRN (07:51)
[2016-12-06] MEDS ORDERED: Clindamycin 900 MG/50 ML 900 MG/50 ML IV.SOLN IVPB SCH ×2 (08:00)
--- NOTE | 2016-12-06 08:36 | Infectious Disease Progress No ---
Date of Encounter: 12/06/16 Time of Encounter: 08:33 - Assessment and Plan (1) Empyema lung Current Visit: Yes Status: Acute Postop day 1 status post Right anterior thoracotomy with drainage of empyema, decortication of the lung and culture of the pleural fluid. 12/03/16 thoracentesis revealed exudative fluid 12/03/16 bacteria seen on gram stain but cultures shows no growth to date 12/05/16 intraoperative pleural fluid cultures pending Pulmonology/ Dr. Levine following CT surgery/ Dr. Krueger following (2) Severe sepsis Current Visit: Yes Status: Acute The patient had three SIRS criteria plus lactic acidosis on admission. Likely secondary to bacteremia. Improved. Tachycardia has resolved. The patient afebrile today. He continues to have leukocytosis, likely reactive due to surgery yesterday. (3) Bacteremia Current Visit: Yes Status: Acute Causative organism: GAS. Source unclear: Right hand cellulitis vs. PNA. Blood cultures drawn 11/30/16 are positive 2/2 sets. TTE negative for vegetations. The patient has three minor Modified Hutchison's Criteria. Repeat blood cultures x 2 sets 12/04/16 shows no growth to date. Continue Vancomycin IV. Pharmacy to dose. Goal trough ~15. Trough 16.7 yesterday. Continue Rocephin 2 grams IV daily. Duration of treatment depends on the clinical picture. Monitor renal function and for drug toxicity and dose-adjust antibiotics. (4) Septic embolism Current Visit: Yes Status: Acute with empyema worse CT scan s/p decortication 12/05/16 d/w pulmonary and cardiothoracic (5) Cellulitis Current Visit: Yes Status: Acute Qualifiers: Site of cellulitis: extremity Site of cellulitis of extremity: upper extremity Laterality: right Qualified Code(s): L03.113 - Cellulitis of right upper limb (6) Hand pain, right Current Visit: Yes Status: Acute (7) IV drug abuse Current Visit: Yes Status: Chronic (8) Hyponatremia Current Visit: Yes Status: Acute (9) Hypomagnesemia Current Visit: Yes Status: Acute (10) PNA (pneumonia) Current Visit: Yes Status: Acute Qualifiers: Pneumonia type: due to unspecified organism Laterality: unspecified laterality Lung location: lower lobe of lung Qualified Code(s): J18.1 - Lobar pneumonia, unspecified organism (11) Pleural effusion Current Visit: Yes Status: Acute - Subjective Interval history: Patient seen and examined. Postop day 1 status post Right anterior thoracotomy with drainage of empyema, decortication of the lung and culture of the pleural fluid. Patient was extubated last night and is sitting up in chair at bedside. Patient has chest tubes in place 2 with serosanguineous drainage. Patient reports pain and shortness of breath this morning. Patient is requesting breakfast tray at this time. Anticipate transferred out of ICU today. Patient denies fever, chills, hemoptysis, abdominal pain, nausea, vomiting, diarrhea, or leg edema. Infect Dis PN-Objective Data - Labs CBC & Chem 7: 12/06/16 04:10 12/06/16 09:34 Labs: Laboratory Results - last 24 hr 12/05/16 12/05/16 12/05/16 08:50 08:51 08:51 WBC 15.2 H RBC 4.49 Hgb 12.0 L Hct 36.8 L MCV 82.0 L MCH 26.7 L MCHC 32.6 RDW 15.3 H Plt Count 238 MPV 11.0 Immature Gran % Seg Neutrophils % 62.0 Band Neutrophils % 6.0 H Lymphocytes % 24.0 Monocytes % 4.0 Eosinophils % Basophils % 2.0 Myelocytes % 2.0 H Neutrophils # 10.3 H Lymphocytes # 3.7 Monocytes # 0.6 Eosinophils # Basophils # 0.3 H Reactive Lymphocytes Platelet Estimate Normal Large Platelets PT 12.7 H INR 1.2 APTT 26.8 ABG pH ABG pCO2 ABG pO2 ABG HCO3 ABG Total CO2 ABG O2 Saturation ABG Base Excess Blood Gas Modality Inspired O2 Sodium 133 L Potassium 4.2 Chloride 103 Carbon Dioxide 24 BUN 10 Creatinine 0.68 L Est GFR ( Amer) > 60 Est GFR (Non-Af Amer) > 60 BUN/Creatinine Ratio 15 Glucose 95 POC Glucose Calculated Osmolality 275 L Calcium 8.2 L Total Bilirubin 0.5 AST 19 ALT 17 Alkaline Phosphatase 107 Serum Total Protein 6.5 Albumin 1.8 L Globulin 4.7 H Albumin/Globulin Ratio 0.4 L Vancomycin Trough 12/05/16 12/05/16 12/05/16 08:51 15:41 20:01 WBC RBC Hgb Hct MCV MCH MCHC RDW Plt Count MPV Immature Gran % Seg Neutrophils % Band Neutrophils % Lymphocytes % Monocytes % Eosinophils % Basophils % Myelocytes % Neutrophils # Lymphocytes # Monocytes # Eosinophils # Basophils # Reactive Lymphocytes Platelet Estimate Large Platelets PT INR APTT ABG pH ABG pCO2 ABG pO2 ABG HCO3 ABG Total CO2 ABG O2 Saturation ABG Base Excess Blood Gas Modality Inspired O2 Sodium Potassium Chloride Carbon Dioxide BUN Creatinine Est GFR ( Amer) Est GFR (Non-Af Amer) BUN/Creatinine Ratio Glucose POC Glucose 76 95 H Calculated Osmolality Calcium Total Bilirubin AST ALT Alkaline Phosphatase Serum Total Protein Albumin Globulin Albumin/Globulin Ratio Vancomycin Trough 16.7 12/05/16 12/05/16 12/06/16 21:04 21:10 04:10 WBC 21.6 H 26.8 H RBC 4.32 4.61 Hgb 11.8 L 12.8 L Hct 35.7 L 38.0 MCV 82.6 L 82.4 L MCH 27.3 L 27.8 L MCHC 33.1 33.7 RDW 15.3 H 15.6 H Plt Count 328 428 H MPV 10.6 10.0 Immature Gran % 3.9 Seg Neutrophils % 82.0 83.1 Band Neutrophils % Lymphocytes % 14.0 8.6 Monocytes % 4.0 3.8 Eosinophils % 0.0 Basophils % 0.6 Myelocytes % Neutrophils # 17.7 H 22.3 H Lymphocytes # 3.0 2.3 Monocytes # 0.9 1.0 Eosinophils # 0.0 Basophils # 0.2 Reactive Lymphocytes Present A Platelet Estimate Normal Normal Large Platelets Present A PT INR APTT ABG pH 7.39 ABG pCO2 45 ABG pO2 66 L ABG HCO3 27.2 H ABG Total CO2 28.6 H ABG O2 Saturation 93 L ABG Base Excess 1.8 Blood Gas Modality NC Inspired O2 26 Sodium Potassium Chloride Carbon Dioxide BUN Creatinine Est GFR ( Amer) Est GFR (Non-Af Amer) BUN/Creatinine Ratio Glucose POC Glucose Calculated Osmolality Calcium Total Bilirubin AST ALT Alkaline Phosphatase Serum Total Protein Albumin Globulin Albumin/Globulin Ratio Vancomycin Trough 12/06/16 12/06/16 04:10 04:45 WBC RBC Hgb Hct MCV MCH MCHC RDW Plt Count MPV Immature Gran % Seg Neutrophils % Band Neutrophils % Lymphocytes % Monocytes % Eosinophils % Basophils % Myelocytes % Neutrophils # Lymphocytes # Monocytes # Eosinophils # Basophils # Reactive Lymphocytes Platelet Estimate Large Platelets PT INR APTT ABG pH 7.40 ABG pCO2 44 ABG pO2 61 L ABG HCO3 27.3 H ABG Total CO2 28.7 H ABG O2 Saturation 91 L ABG Base Excess 2.0 Blood Gas Modality RA Inspired O2 21 Sodium 133 L Potassium 5.5 H D Chloride 102 Carbon Dioxide 25 BUN 13 Creatinine 0.80 Est GFR ( Amer) > 60 Est GFR (Non-Af Amer) > 60 BUN/Creatinine Ratio 16 Glucose 176 H POC Glucose Calculated Osmolality 280 Calcium 8.1 L Total Bilirubin AST ALT Alkaline Phosphatase Serum Total Protein Albumin Globulin Albumin/Globulin Ratio Vancomycin Trough Cultures: Cultures 12/03/16 15:00 Body Fluid Culture - Final Pleural Fluid 12/04/16 00:47 Blood Culture - Preliminary Peripheral Venipuncture No growth. 12/04/16 00:47 Blood Culture - Preliminary Peripheral Venipuncture No growth. 12/03/16 15:00 Acid Fast Stain - Final Pleural Fluid Serology 12/04/16 12/03/16 12/03/16 Range/Units 00:47 15:00 15:00 Pleural Fluid Volume 500.0 mL Pleural Appearance Cloudy A (Clear) Pleural RBC 0.002 (0.000 - 0.002) M/mcL Pleural Tot Nuc Cell 4630 H (0-1000) TNC/mcL Pleural Neutrophils 91.0 % Pleural Band Neuts Test Not Performed Pleural Eosinophils Test Not Performed Pleural Basophils Test Not Performed Pleural Lymphocytes % 7.0 % Pleural Monocytes % 2.0 % Pleural Other Cells % Test Not Performed Pleural Total Protein 3.1 (No Ref Range) g/dL Pleural LDH 1758 (No Ref Range) Units/L Pleural Glucose 13 (No Ref Range) mg/dL HIV Ag/Ab Combo Qual Nonreactive (Nonreactive) - Impressions Impressions Chest X-Ray 12/05/16 19:50 IMPRESSION: Interval placement of 2 right chest tubes with near complete resolution of the right pleural effusion. Improved aeration of the right lung base with decreased atelectasis. Mild left basilar atelectasis. D/ / 12/05/2016 21:10:28 Bruno Niño MD / magdalene Interpreting Provider: Bruno Niño MD Chest X-Ray 12/06/16 06:00 IMPRESSION: 1. No significant interval change. Persistent atelectasis in the right base and small right pleural effusion. D/ / Nic Robertson MD / Nic Robertson MD Interpreting Provider: Nic Robertson MD Exam - Constitutional Vitals: Temp Pulse Resp BP Pulse Ox 98.1 F 94 14 119/66 96 12/06/16 08:16 12/06/16 06:00 12/06/16 06:00 12/06/16 06:00 12/06/16 06:00 General appearance: cooperative, no acute distress, no febrile - Head Head exam: Present: atraumatic, normal inspection, normocephalic - Eye Eye exam: Present: PERRL, conjuntiva pink - ENT ENT exam: Present: mucous membranes moist, normal oropharynx - Neck Neck exam: Present: normal inspection. Absent: lymphadenopathy, tenderness, thyromegaly - Respiratory Respiratory exam: Absent: accessory muscle use, prolonged expiratory phase, respiratory distress, wheezes Additional comments: Good air movement bilaterally, right sided chest tubes [address] with serosanguineous drainage, dressing in place C/D/I - Cardiovascular Cardiovascular exam: Present: RRR, +S1, +S2. Absent: diastolic murmur, systolic murmur - GI/Abdominal GI/Abdominal exam: Present: normal bowel sounds, soft. Absent: distended, guarding, rebound, tenderness - Extremities Exam Extremities exam: Present: tenderness. Absent: normal inspection, pedal edema Additional comments: Right upper extremity edema and tenderness to palpation, limited range of motion secondary to pain, no erythema - Neurological Exam Neurological exam: Present: alert, oriented X3. Absent: altered, motor sensory deficit - Psychiatric Psychiatric exam: Present: agitated, anxious - Skin Skin exam: Present: dry, warm. Absent: erythema Additional comments: Right sided Chest tubes [address], no surrounding erythema dressings in place , C/D/I Consult Discharge Plan - Plan Referrals: NONE,PCP [Primary Care Provider] - (december 10 at residency clinic with dr dial at 3:00) - Attending Attestation I examined this patient and my medical decision-making was reviewed with the Resident Physician. I agree with the documented findings, disposition and treatment plan as described except to the extent set forth below.
[2016-12-06] MEDS: Magnesium Oxide 400 MG TABLET PO SCH ×2 (08:44→21:34)
[2016-12-06] MEDS: Sennosides/Docusate Sodium TABLET PO SCH ×2 (08:44→21:34)
[2016-12-06] MEDS: Nicotine 21 MG PATCH.TD24 TD SCH ×2 (08:45→08:58)
[2016-12-06] MEDS ORDERED: *HR* Heparin 5,000 UNIT/ML VIAL IVP ONE (10:27)
[2016-12-06] MEDS ORDERED: *HR* Heparin 5,000 UNIT/ML VIAL IVP PRN (10:27)
[2016-12-06] MEDS: Heparin 25,000 UNIT/500 ML D5W 25,000 UNIT/500 ML MLS IVC SCH (11:19)
[2016-12-06 18:01] LABS: INR 1.1; Prothrombin Time 11.7 Seconds (9.4-12.1)
[2016-12-06 18:04] LABS: Activated Partial Thrombo Time 27.2 Seconds (26.0-36.0)
[2016-12-07] MEDS: *HR* HYDROmorphone 2 MG/ML SYRINGE IVP PRN ×8 (00:37→23:08)
[2016-12-07 01:50] LABS: Hemoglobin 11.4 g/dL (12.9-16.9); Mean Corpuscular HGB Conc 32.6 g/dL (31.6-35.5); Mean Corpuscular Hemoglobin 27.1 pg (28.0-33.3); Mean Corpuscular Volume 83.3 fL (83.0-100.0); Mean Platelet Volume 9.9 fL (9.4-12.4); Platelet Count 484 K/mcL (140-400); Red Cell Distribution Width 15.5 % (11.5-14.5)
[2016-12-07 02:02] LABS: BUN/Creatinine Ratio 13 (6-26); Blood Urea Nitrogen 9 mg/dL (8-26); Carbon Dioxide 29 mEq/L (19-29); Chloride 99 mEq/L (98-109); Potassium 4.8 mEq/L (3.5-4.5); Sodium 132 mEq/L (136-145); eGFR For African Americans > 60 (> 60)
[2016-12-07 02:03] LABS: Calcium 8.2 mg/dL (8.6-10.8); Glucose 111 mg/dL (70-99); Osmolality,Calculated 273 (280-300); eGFR For Non-African Americans > 60 (> 60)
[2016-12-07 02:48] LABS: Lymphocytes # 4.4 K/mcL (0.6-4.6); Monocytes # 0.3 K/mcL (0.0-1.3); Neutrophils # 11.1 K/mcL (1.6-8.9); Platelet Estimate Increased (Normal)
[2016-12-07] MEDS: Albuterol 2.5 MG/3 ML NEBULIZER IH SCH ×5 (03:55→20:38)
[2016-12-07] MEDS: *HR* Heparin 5,000 UNIT/ML VIAL IVP PRN ×2 (04:23→11:35)
[2016-12-07] MEDS: Vancomycin 1,250 MG in D5% in Water 250 ML IVPB SCH ×4 (04:23→20:31)
[2016-12-07] MEDS: Magnesium Oxide 400 MG TABLET PO SCH ×2 (08:52→19:35)
[2016-12-07] MEDS: Sennosides/Docusate Sodium TABLET PO SCH ×2 (08:52→19:35)
[2016-12-07] MEDS: *HR* OxyCODONE/APAP 5/325 TABLET PO PRN (08:53)
[2016-12-07] MEDS: Nicotine 21 MG PATCH.TD24 TD SCH (08:59)
--- NOTE | 2016-12-07 09:15 | Pulmonology Progress Note ---
Date of Encounter: 12/07/16 Time of Encounter: 09:15 Assessment and Plan (1) Group A streptococcal infection Current Visit: Yes Status: Acute Impression: 1. GAS bactermia. 2. Empyema of right lung s/p surgical decortication 3. Sepsis 4. Septic Thrombophlebitis with DVT 5. Mild Hyperkalemia 6. Drug Abuse Plan: -Continue vancomycin and Rocephin infectious disease following -Clinically doing well chest tube management per CTS -Improving clinically continue antimicrobials fluids as needed -Cont heparin infusion -Resolved -Social service consulted Stable for transfer from ICU to general medical floor for ongoing management (2) PNA (pneumonia) Current Visit: Yes Status: Acute Qualifiers: Pneumonia type: due to unspecified organism Laterality: unspecified laterality Lung location: lower lobe of lung Qualified Code(s): J18.1 - Lobar pneumonia, unspecified organism (3) Septic thrombophlebitis of upper extremity Current Visit: Yes Status: Acute (4) Bacteremia Current Visit: Yes Status: Acute (5) Hyperkalemia Current Visit: Yes Status: Acute (6) Empyema Current Visit: Yes Status: Acute Subjective Principal diagnosis: right hand cellulitis Interval history: Continues to clinically improve remains afebrile generally feels better. He is at scant output from the chest tubes Objective PUL Vital signs: Last Vital Signs Temp 98.3 F 12/07/16 08:39 Pulse 112 12/07/16 08:39 Resp 20 12/07/16 08:39 BP 137/85 12/07/16 08:39 Pulse Ox 94 12/07/16 08:39 General appearance: no acute distress Auscultation: right: diminished breath sounds Cardiovascular: regular rate and rhythm Musculoskeletal: other (Improving swelling of the right forearm right hand remains swollen and tender to palpation) normal mental status, non-focal exam Results - Laboratory Findings CBC and BMP: 12/07/16 01:21 12/07/16 01:21 ABG ABG pH 7.40 pH Units (7.32-7.45) 12/06/16 04:45 ABG pCO2 44 mmHg (35-45) 12/06/16 04:45 ABG pO2 61 mmHg (85-104) L 12/06/16 04:45 ABG O2 Saturation 91 % (95-98) L 12/06/16 04:45 PT/INR, D-dimer PT 11.7 Seconds (9.4-12.1) 12/06/16 17:47 Abnormal lab findings: Abnormal lab results WBC 15.8 K/mcL (4.3-11.1) H 12/07/16 01:21 Hgb 11.4 g/dL (12.9-16.9) L 12/07/16 01:21 Hct 35.0 % (37.5-50.1) L 12/07/16 01:21 MCH 27.1 pg (28.0-33.3) L 12/07/16 01:21 RDW 15.5 % (11.5-14.5) H 12/07/16 01:21 Plt Count 484 K/mcL (140-400) H 12/07/16 01:21 Band Neutrophils % 6.0 % (0-4) H 12/05/16 08:51 Metamyelocytes % 4.0 % (0) H 12/01/16 04:20 Myelocytes % 2.0 % (0) H 12/05/16 08:51 Neutrophils # 11.1 K/mcL (1.6-8.9) H 12/07/16 01:21 Reactive Lymphocytes Present (Not Present) A 12/05/16 21:10 Toxic Granulation Present (Not Present) A 12/03/16 04:19 Toxic Vacuolation Present (Not Present) A 12/01/16 04:20 Platelet Estimate Increased (Normal) H 12/07/16 01:21 Clumped Platelets Few (Not Present) A 12/01/16 04:20 Large Platelets Present (Not Present) A 12/06/16 04:10 Hypochromasia Present (Not Present) A 12/01/16 04:20 Anisocytosis 1+ (Not Present) A 12/02/16 01:06 APTT 38.8 Seconds (26.0-36.0) H 12/07/16 03:12 ABG pO2 61 mmHg (85-104) L 12/06/16 04:45 ABG HCO3 27.3 mEQ/L (21-27) H 12/06/16 04:45 ABG Total CO2 28.7 mEq/L (20-26) H 12/06/16 04:45 ABG O2 Saturation 91 % (95-98) L 12/06/16 04:45 Sodium 132 mEq/L (136-145) L 12/07/16 01:21 Potassium 4.8 mEq/L (3.5-4.5) H 12/07/16 01:21 Creatinine 0.71 mg/dL (0.72-1.25) L 12/07/16 01:21 Glucose 111 mg/dL (70-99) H 12/07/16 01:21 POC Glucose 95 (58-89) H 12/05/16 20:01 Calculated Osmolality 273 (280-300) L 12/07/16 01:21 Lactic Acid 2.6 mmol/L (0.5-2.2) H 11/30/16 20:18 Calcium 8.2 mg/dL (8.6-10.8) L 12/07/16 01:21 Albumin 1.8 g/dL (3.5-5.0) L 12/05/16 08:51 Globulin 4.7 g/dL (2.4-3.5) H 12/05/16 08:51 Albumin/Globulin Ratio 0.4 (1.1-2.2) L 12/05/16 08:51 Pleural Appearance Cloudy (Clear) A 12/03/16 15:00 Pleural Tot Nuc Cell 4630 TNC/mcL (0-1000) H 12/03/16 15:00 Streptococcus sp PCR DETECTED (Not Detect) A 11/30/16 12:53 Group A Strep DNA DETECTED (Not Detect) A 11/30/16 12:53 - Microbiology Findings Microbiology Findings: Microbiology, Last 48 Hours 12/05/16 19:30 Wound Culture - Preliminary Other-Specify in Comments No growth. 12/03/16 15:00 Body Fluid Culture - Final Pleural Fluid 12/04/16 00:47 Blood Culture - Preliminary Peripheral Venipuncture No growth. 12/04/16 00:47 Blood Culture - Preliminary Peripheral Venipuncture No growth. - Clinical Findings Intake & Output: Intake & Output 12/06/16 12/07/16 12/07/16 23:59 07:59 15:59 Intake Total 640 / 640 834 / 834 Output Total 1326 / 1326 1410 / 1410 506 / 506 Balance -686 / -686 -576 / -576 -506 / -506 Weight 73.5 kg Consult Discharge Plan - Plan Referrals: NONE,PCP [Primary Care Provider] - (december 10 at residency clinic with dr dial at 3:00)
[2016-12-07] MEDS: Heparin 25,000 UNIT/500 ML D5W 25,000 UNIT/500 ML MLS IVC SCH (10:28)
--- NOTE | 2016-12-07 13:37 | Cardiothoracic Progress Note ---
Date of Encounter: 12/07/16 Time of Encounter: 13:29 - Assessment and plan (1) Empyema Current Visit: Yes Status: Acute The patient is recovering well from his right thoracotomy and decortication. The chest tube should remained on suction. He will continue his IV antibiotic therapy. He may be transferred to the stepdown unit with telemetry at the discretion of the hospitalist. The assessment and plan as outlined above was discussed with the patient and/or family members who expressed understanding and agreement. All questions were answered. - Subjective Procedure(s) Performed: POD#2 S/P Right thoracotomy with decortication Interval history: The patient is recovering well from his right thoracotomy with decortication. He is sitting in a chair breathing comfortably. His postoperative pain is fairly well controlled. Vital Signs, Last 4 Hours Temp Pulse Resp BP Pulse Ox 12/07/16 11:58 98.1 F 93 18 149/87 96 12/07/16 11:29 20 94 Oxgyen Flow Rate Oxygen Flow Rate (LPM) 1.5 Clinical Data, last 8 Hours Output, Chest Tube Drainage 50 Amount [Right Mediastinal #2] Output, Chest Tube Drainage 6 Amount [Right Mediastinal #1] Output, Urine Amount 300 Output, Urine Amount 600 Output, Urine Amount 800 Weight 12/05/16 12/06/16 12/07/16 23:59 23:59 23:59 Weight 72.6 kg 73.5 kg - Physical Examination General: Conversant, No Apparent Distress Neck: No JVD, Normal carotid pulses Cardiac: Reg Rate and Rhythm, Normal S1 and S2, No Murmur Incision: No signs of infection, Dry/intact dressing Chest tubes: Minimal drainage, Other (No air leak.) Lungs: Normal Breath Sounds, No Wheeze, Rales, Rhonchi Neuro: Alert and responsive, No focal deficits noted Vascular: Normal capillary refill Skin: No rashes noted on visualized skin Extremities: No Clubbing, No Cyanosis, No Edema - Labs 12/07/16 01:21 12/07/16 01:21 Lab Results, Last 24 hours 12/06/16 12/06/16 12/07/16 17:47 18:54 01:21 WBC 15.8 H Hgb 11.4 L Hct 35.0 L Plt Count 484 H INR 1.1 APTT 27.2 27.7 Sodium Potassium Chloride Carbon Dioxide BUN Creatinine Glucose Calcium 12/07/16 12/07/16 12/07/16 01:21 03:12 11:00 WBC Hgb Hct Plt Count INR APTT 38.8 H 36.5 H Sodium 132 L Potassium 4.8 H Chloride 99 Carbon Dioxide 29 BUN 9 Creatinine 0.71 L Glucose 111 H Calcium 8.2 L Consult Discharge Plan - Plan Referrals: NONE,PCP [Primary Care Provider] - (december 10 at residency clinic with dr dial at 3:00)
--- NOTE | 2016-12-07 14:04 | Infectious Disease Progress No ---
Date of Encounter: 12/07/16 Time of Encounter: 14:01 - Assessment and Plan (1) Severe sepsis Current Visit: Yes Status: Acute The patient had three SIRS criteria plus lactic acidosis on admission. Likely secondary to bacteremia. Improved. Tachycardia has resolved. The patient afebrile today. He continues to have leukocytosis, likely reactive due to surgery yesterday. Blood cultures drawn 11/30/16 are positive 2/2 sets for GAS. Repeat blood cultures drawn 12/04/16 are NGTD. (2) Bacteremia Current Visit: Yes Status: Acute Causative organism: GAS. Source unclear: Right hand cellulitis vs. PNA vs. empyema. Blood cultures drawn 11/30/16 are positive 2/2 sets. Repeat blood cultures drawn 12/04/16 are NGTD. TTE negative for vegetations. The patient has three minor Modified Hutchison's Criteria. Continue Vancomycin IV. Pharmacy to dose. Goal trough ~15. Trough 16.7 yesterday. Continue Rocephin 2 grams IV daily. Duration of treatment depends on the clinical picture. Monitor renal function and for drug toxicity and dose-adjust antibiotics. (3) Empyema Current Visit: Yes Status: Acute Thoracentesis completed 12/04/16 showed findings consistent with empyema. Status post thoracotomy with decortication 12/05/[address] Krueger. Intra-operative cultures obtained are preliminarily negative. Chest tube management per the CTS team. (4) Septic embolism Current Visit: Yes Status: Acute Location: Bilateral lungs. CT of the chest revealed bilateral pulmonary nodules. Pulmonology consulted. Given bacteremia and patient's history of IVDU, likely septic emboli. Continue antibiotics as above. (5) Cellulitis Current Visit: Yes Status: Acute Location: Right hand. Causative organism likely GAS. CT negative for necrotizing fasciitis. Ortho evaluation appreciated - no surgical intervention required at this time. Continue antibiotics as above. Qualifiers: Site of cellulitis: extremity Site of cellulitis of extremity: upper extremity Laterality: right Qualified Code(s): L03.113 - Cellulitis of right upper limb (6) PNA (pneumonia) Current Visit: Yes Status: Acute Location: RLL. Causative organism unclear, but possible GAS. Pulmonology consulted and following. Continue antibiotics as above. Qualifiers: Pneumonia type: due to unspecified organism Laterality: unspecified laterality Lung location: lower lobe of lung Qualified Code(s): J18.1 - Lobar pneumonia, unspecified organism (7) Hand pain, right Current Visit: Yes Status: Acute Secondary to right hand trauma and cellulitis. Ortho consult noted. Venous doppler studies negative. Pain management per the primary team. (8) Lactic acidosis Current Visit: Yes Status: Resolved Secondary to sepsis. Resolved. (9) Hyponatremia Current Visit: Yes Status: Acute (10) Hypomagnesemia Current Visit: Yes Status: Resolved (11) IV drug abuse Current Visit: Yes Status: Chronic Last use 2 months ago. Known Hep C positive. HIV negative. - Subjective Interval history: Patient seen and examined. No acute events noted overnight. Patient resting quietly in bed with eyes closed. Awakens easily. Complains of pain in his right side and back and right hand. He denies any shortness of breath, but does report a chronic cough productive of sputum. He denies any fevers or chills or rigors. He denies any nausea, vomiting, diarrhea, constipation. He denies any urinary complaints. He denies any oral thrush or skin lesions. Infect Dis PN-Objective Data - Labs CBC & Chem 7: 12/07/16 01:21 12/07/16 01:21 Labs: Laboratory Results - last 24 hr 12/06/16 12/06/16 12/07/16 17:47 18:54 01:21 WBC 15.8 H RBC 4.20 Hgb 11.4 L Hct 35.0 L MCV 83.3 MCH 27.1 L MCHC 32.6 RDW 15.5 H Plt Count 484 H MPV 9.9 Seg Neutrophils % 70.0 Lymphocytes % 28.0 Monocytes % 2.0 Neutrophils # 11.1 H Lymphocytes # 4.4 Monocytes # 0.3 Platelet Estimate Increased H PT 11.7 INR 1.1 APTT 27.2 27.7 Sodium Potassium Chloride Carbon Dioxide BUN Creatinine Est GFR ( Amer) Est GFR (Non-Af Amer) BUN/Creatinine Ratio Glucose Calculated Osmolality Calcium 12/07/16 12/07/16 12/07/16 01:21 03:12 11:00 WBC RBC Hgb Hct MCV MCH MCHC RDW Plt Count MPV Seg Neutrophils % Lymphocytes % Monocytes % Neutrophils # Lymphocytes # Monocytes # Platelet Estimate PT INR APTT 38.8 H 36.5 H Sodium 132 L Potassium 4.8 H Chloride 99 Carbon Dioxide 29 BUN 9 Creatinine 0.71 L Est GFR ( Amer) > 60 Est GFR (Non-Af Amer) > 60 BUN/Creatinine Ratio 13 Glucose 111 H Calculated Osmolality 273 L Calcium 8.2 L Cultures: Cultures 12/05/16 19:30 Wound Culture - Preliminary Other-Specify in Comments No growth. 12/03/16 15:00 Body Fluid Culture - Final Pleural Fluid 12/04/16 00:47 Blood Culture - Preliminary Peripheral Venipuncture No growth. 12/04/16 00:47 Blood Culture - Preliminary Peripheral Venipuncture No growth. 12/03/16 15:00 Acid Fast Stain - Final Pleural Fluid Serology 12/04/16 12/03/16 12/03/16 Range/Units 00:47 15:00 15:00 Pleural Fluid Volume 500.0 mL Pleural Appearance Cloudy A (Clear) Pleural RBC 0.002 (0.000 - 0.002) M/mcL Pleural Tot Nuc Cell 4630 H (0-1000) TNC/mcL Pleural Neutrophils 91.0 % Pleural Band Neuts Test Not Performed Pleural Eosinophils Test Not Performed Pleural Basophils Test Not Performed Pleural Lymphocytes % 7.0 % Pleural Monocytes % 2.0 % Pleural Other Cells % Test Not Performed Pleural Total Protein 3.1 (No Ref Range) g/dL Pleural LDH 1758 (No Ref Range) Units/L Pleural Glucose 13 (No Ref Range) mg/dL HIV Ag/Ab Combo Qual Nonreactive (Nonreactive) Exam - Constitutional Vitals: Temp Pulse Resp BP Pulse Ox 98.1 F 93 18 149/87 96 12/07/16 11:58 12/07/16 11:58 12/07/16 11:58 12/07/16 11:58 12/07/16 11:58 General appearance: average body habitus, cooperative, no acute distress - Head Head exam: Present: atraumatic, normal inspection, normocephalic - Eye Eye exam: Present: EOMI, normal appearance, PERRL Pupils: Present: normal accommodation Additional comments: No subconjunctival hemorrhage noted. - ENT ENT exam: Present: mucous membranes moist - Neck Neck exam: Present: normal inspection - Respiratory Respiratory exam: Present: decreased breath sounds (Right base), CTAB. Absent: rales, respiratory distress, rhonchi, wheezes - Cardiovascular Cardiovascular exam: Present: RRR, +S1, +S2 - GI/Abdominal GI/Abdominal exam: Present: normal bowel sounds, soft. Absent: distended, tenderness - Extremities Exam Extremities exam: Present: joint swelling (right hand/wrist), tenderness (right hand). Absent: normal inspection (Right hand edematous, no erythema, warmth, or lesions), pedal edema - Back Exam Additional comments: Patient declines examination of his back due to pain with movement. - Neurological Exam Neurological exam: Present: alert, oriented X3, no focal deficits - Psychiatric Psychiatric exam: Present: normal affect, normal mood - Skin Skin exam: Present: dry, intact, normal color, warm Additional comments: No endocarditis stigmata noted. - Additional findings Additional findings: Chest tubes x 2 noted to suction to the right chest wall. Small amount of sanguinous drainage noted in the atrium collection devices. No air leak or crepitus noted. Consult Discharge Plan - Plan Referrals: NONE,PCP [Primary Care Provider] - (december 10 at residency clinic with dr dial at 3:00)
[2016-12-08] MEDS: Albuterol 2.5 MG/3 ML NEBULIZER IH SCH ×6 (00:33→19:31)
[2016-12-08] MEDS: Heparin 25,000 UNIT/500 ML D5W 25,000 UNIT/500 ML MLS IVC SCH (00:36)
[2016-12-08 01:26] LABS: Basophils # 0.1 K/mcL (0.0-0.2); Basophils % 0.6 %; Eosinophils # 0.1 K/mcL (0.0-0.6); Eosinophils % 0.7 %; Hematocrit 32.8 % (37.5-50.1); Hemoglobin 10.9 g/dL (12.9-16.9); Immature Granulocytes % 4.1 % (0-4); Lymphocytes # 3.1 K/mcL (0.6-4.6); Lymphocytes % 17.5 %; Mean Corpuscular HGB Conc 33.2 g/dL (31.6-35.5); Mean Corpuscular Volume 81.4 fL (83.0-100.0); Mean Platelet Volume 10.2 fL (9.4-12.4); Monocytes # 1.7 K/mcL (0.0-1.3); Monocytes % 9.2 %; Neutrophils # 12.1 K/mcL (1.6-8.9); Platelet Count 537 K/mcL (140-400); Red Blood Count 4.03 M/mcL (4.19-5.50); Red Cell Distribution Width 15.3 % (11.5-14.5); Segmented Neutrophils % 67.9 %
[2016-12-08 01:41] LABS: BUN/Creatinine Ratio 14 (6-26); Blood Urea Nitrogen 11 mg/dL (8-26); Calcium 8.9 mg/dL (8.6-10.8); Carbon Dioxide 22 mEq/L (19-29); Chloride 97 mEq/L (98-109); Glucose 103 mg/dL (70-99); Osmolality,Calculated 264 (280-300); Sodium 127 mEq/L (136-145); eGFR For African Americans > 60 (> 60); eGFR For Non-African Americans > 60 (> 60)
[2016-12-08 01:43] LABS: Potassium 5.6 mEq/L (3.5-4.5)
[2016-12-08] MEDS: *HR* Heparin 5,000 UNIT/ML VIAL IVP PRN (02:06)
[2016-12-08] MEDS: *HR* HYDROmorphone 2 MG/ML SYRINGE IVP PRN ×6 (02:08→21:05)
[2016-12-08] MEDS: *HR* OxyCODONE/APAP 5/325 TABLET PO PRN ×2 (02:45→17:39)
[2016-12-08] MEDS: Vancomycin 1,250 MG in D5% in Water 250 ML IVPB SCH ×3 (04:59→19:39)
--- NOTE | 2016-12-08 08:05 | Cardiothoracic Progress Note ---
Date of Encounter: 12/08/16 Time of Encounter: 08:03 - Assessment and plan (1) Empyema Current Visit: Yes Status: Acute The patient is recovering well from his right thoracotomy and decortication. The chest tube should remained on suction. He will continue his IV antibiotic therapy. He may be transferred to the stepdown unit when a bed is available. The assessment and plan as outlined above was discussed with the patient and/or family members who expressed understanding and agreement. All questions were answered. - Subjective Procedure(s) Performed: POD#3 S/P Right thoracotomy with decortication Interval history: The patient is recovering well from his right thoracotomy with decortication. His postoperative pain is fairly well controlled. Vital Signs, Last 4 Hours Temp Pulse Resp BP Pulse Ox 12/08/16 07:49 20 94 12/08/16 07:36 98.6 F 12/08/16 07:33 97 20 130/76 94 Oxgyen Flow Rate Oxygen Flow Rate (LPM) 1.5 Clinical Data, last 8 Hours Output, Chest Tube Drainage 0 Amount [Right Mediastinal #2] Output, Chest Tube Drainage 20 Amount [Right Mediastinal #2] Output, Chest Tube Drainage 0 Amount [Right Mediastinal #1] Output, Chest Tube Drainage 20 Amount [Right Mediastinal #1] Output, Urine Amount 450 Output, Urine Amount 575 Output, Urine Amount 350 Output, Urine Amount 225 Output, Urine Amount 775 Weight 12/06/16 12/07/16 12/08/16 23:59 23:59 23:59 Weight 73.5 kg 68.75 kg - Physical Examination General: Conversant, No Apparent Distress Neck: No JVD, Normal carotid pulses Cardiac: Reg Rate and Rhythm, Normal S1 and S2, No Murmur Incision: No signs of infection, Dry/intact dressing, Other (Fluid collection superior to the thoracotomy incision.) Chest tubes: Minimal drainage, Other (No air leak.) Lungs: Normal Breath Sounds, No Wheeze, Rales, Rhonchi Neuro: Alert and responsive, No focal deficits noted Vascular: Normal capillary refill Extremities: No Clubbing, No Cyanosis, No Edema, Normal Pulses - Labs 12/08/16 01:16 12/08/16 01:16 Lab Results, Last 24 hours 12/07/16 12/07/16 12/08/16 11:00 17:25 01:16 WBC 17.9 H Hgb 10.9 L Hct 32.8 L Plt Count 537 H APTT 36.5 H 44.6 H Sodium Potassium Chloride Carbon Dioxide BUN Creatinine Glucose Calcium 12/08/16 12/08/16 01:16 01:16 WBC Hgb Hct Plt Count APTT 38.2 H Sodium 127 L Potassium 5.6 H Chloride 97 L Carbon Dioxide 22 BUN 11 Creatinine 0.81 Glucose 103 H Calcium 8.9 - Imaging Chest Xray: image reviewed (No pneumothorax. Right basilar atelectasis. Small right pleural effusion) Consult Discharge Plan - Plan Referrals: NONE,PCP [Primary Care Provider] - (december 10 at residency clinic with dr dial at 3:00)
[2016-12-08] MEDS: Magnesium Oxide 400 MG TABLET PO SCH ×2 (08:23→19:54)
[2016-12-08] MEDS: Sennosides/Docusate Sodium TABLET PO SCH ×2 (08:24→19:55)
[2016-12-08] MEDS: Nicotine 21 MG PATCH.TD24 TD SCH (08:25)
[2016-12-08] MEDS: *HR* Enoxaparin 80 MG/0.8 ML SYRINGE SQ SCH ×2 (10:31→17:40)
--- NOTE | 2016-12-08 11:51 | Pulmonology Progress Note ---
Date of Encounter: 12/08/16 Time of Encounter: 11:48 Assessment and Plan (1) Group A streptococcal infection Current Visit: Yes Status: Acute Impression: 1. GAS bactermia. 2. Empyema of right lung s/p surgical decortication 3. Sepsis 4. Septic Thrombophlebitis with DVT 5. Mild Hyperkalemia 6. Drug Abuse Plan: -Continue vancomycin and Rocephin infectious disease following -Clinically doing well chest tube management per CTS -Improving clinically continue antimicrobials fluids as needed -Switched to Lovenox twice a day dosing -IV Lasix today Stable for transfer from ICU to general medical floor for ongoing management. I spoke to Dr Mathews who accepted care of patient (2) PNA (pneumonia) Current Visit: Yes Status: Acute Qualifiers: Pneumonia type: due to unspecified organism Laterality: unspecified laterality Lung location: lower lobe of lung Qualified Code(s): J18.1 - Lobar pneumonia, unspecified organism (3) Septic thrombophlebitis of upper extremity Current Visit: Yes Status: Acute (4) Bacteremia Current Visit: Yes Status: Acute (5) Hyperkalemia Current Visit: Yes Status: Acute (6) Empyema Current Visit: Yes Status: Acute Subjective Principal diagnosis: right hand cellulitis Interval history: Did not sleep well last night he complains about frequent sticks were PTT while on heparin developed a small seroma on the right chest wall chest tube with minimal output Objective PUL Vital signs: Last Vital Signs Temp 98.6 F 12/08/16 07:36 Pulse 97 12/08/16 07:33 Resp 20 12/08/16 11:35 BP 130/76 12/08/16 07:33 Pulse Ox 94 12/08/16 11:35 General appearance: no acute distress Auscultation: right: diminished breath sounds Cardiovascular: regular rate and rhythm normal mental status, non-focal exam mood appropriate Results - Laboratory Findings CBC and BMP: 12/08/16 01:16 12/08/16 01:16 ABG ABG pH 7.40 pH Units (7.32-7.45) 12/06/16 04:45 ABG pCO2 44 mmHg (35-45) 12/06/16 04:45 ABG pO2 61 mmHg (85-104) L 12/06/16 04:45 ABG O2 Saturation 91 % (95-98) L 12/06/16 04:45 PT/INR, D-dimer PT 11.7 Seconds (9.4-12.1) 12/06/16 17:47 Abnormal lab findings: Abnormal lab results WBC 17.9 K/mcL (4.3-11.1) H 12/08/16 01:16 RBC 4.03 M/mcL (4.19-5.50) L 12/08/16 01:16 Hgb 10.9 g/dL (12.9-16.9) L 12/08/16 01:16 Hct 32.8 % (37.5-50.1) L 12/08/16 01:16 MCV 81.4 fL (83.0-100.0) L 12/08/16 01:16 MCH 27.0 pg (28.0-33.3) L 12/08/16 01:16 RDW 15.3 % (11.5-14.5) H 12/08/16 01:16 Plt Count 537 K/mcL (140-400) H 12/08/16 01:16 Immature Gran % 4.1 % (0-4) H 12/08/16 01:16 Band Neutrophils % 6.0 % (0-4) H 12/05/16 08:51 Metamyelocytes % 4.0 % (0) H 12/01/16 04:20 Myelocytes % 2.0 % (0) H 12/05/16 08:51 Neutrophils # 12.1 K/mcL (1.6-8.9) H 12/08/16 01:16 Monocytes # 1.7 K/mcL (0.0-1.3) H 12/08/16 01:16 Reactive Lymphocytes Present (Not Present) A 12/05/16 21:10 Toxic Granulation Present (Not Present) A 12/03/16 04:19 Toxic Vacuolation Present (Not Present) A 12/01/16 04:20 Platelet Estimate Increased (Normal) H 12/07/16 01:21 Clumped Platelets Few (Not Present) A 12/01/16 04:20 Large Platelets Present (Not Present) A 12/06/16 04:10 Hypochromasia Present (Not Present) A 12/01/16 04:20 Anisocytosis 1+ (Not Present) A 12/02/16 01:06 APTT 79.7 Seconds (26.0-36.0) H D 12/08/16 09:02 ABG pO2 61 mmHg (85-104) L 12/06/16 04:45 ABG HCO3 27.3 mEQ/L (21-27) H 12/06/16 04:45 ABG Total CO2 28.7 mEq/L (20-26) H 12/06/16 04:45 ABG O2 Saturation 91 % (95-98) L 12/06/16 04:45 Sodium 127 mEq/L (136-145) L 12/08/16 01:16 Potassium 5.6 mEq/L (3.5-4.5) H 12/08/16 01:16 Chloride 97 mEq/L (98-109) L 12/08/16 01:16 Glucose 103 mg/dL (70-99) H 12/08/16 01:16 POC Glucose 95 (58-89) H 12/05/16 20:01 Calculated Osmolality 264 (280-300) L 12/08/16 01:16 Lactic Acid 2.6 mmol/L (0.5-2.2) H 11/30/16 20:18 Albumin 1.8 g/dL (3.5-5.0) L 12/05/16 08:51 Globulin 4.7 g/dL (2.4-3.5) H 12/05/16 08:51 Albumin/Globulin Ratio 0.4 (1.1-2.2) L 12/05/16 08:51 Pleural Appearance Cloudy (Clear) A 12/03/16 15:00 Pleural Tot Nuc Cell 4630 TNC/mcL (0-1000) H 12/03/16 15:00 Streptococcus sp PCR DETECTED (Not Detect) A 11/30/16 12:53 Group A Strep DNA DETECTED (Not Detect) A 11/30/16 12:53 - Microbiology Findings Microbiology Findings: Microbiology, Last 48 Hours 12/05/16 19:30 Wound Culture - Final Other-Specify in Comments No growth. - Clinical Findings Intake & Output: Intake & Output 12/07/16 12/08/16 12/08/16 23:59 07:59 15:59 Intake Total 953 / 953 646 / 646 Output Total 3105 / 3105 2415 / 2415 Balance -2152 / -2152 -1769 / -176 Weight 68.75 kg Consult Discharge Plan - Plan Referrals: NONE,PCP [Primary Care Provider] - (december 10 at residency clinic with dr dial at 3:00)
[2016-12-09] MEDS: Albuterol 2.5 MG/3 ML NEBULIZER IH SCH ×7 (00:07→23:49)
[2016-12-09] MEDS: *HR* OxyCODONE/APAP 5/325 TABLET PO PRN ×5 (00:33→23:26)
[2016-12-09] MEDS: Vancomycin 1,250 MG in D5% in Water 250 ML IVPB SCH ×3 (00:34→18:48)
[2016-12-09 00:35] LABS: Basophils # 0.1 K/mcL (0.0-0.2); Basophils % 0.5 %; Eosinophils # 0.1 K/mcL (0.0-0.6); Eosinophils % 0.8 %; Hematocrit 35.8 % (37.5-50.1); Hemoglobin 11.8 g/dL (12.9-16.9); Immature Granulocytes % 3.9 % (0-4); Lymphocytes # 2.7 K/mcL (0.6-4.6); Lymphocytes % 15.8 %; Mean Corpuscular Hemoglobin 27.2 pg (28.0-33.3); Mean Corpuscular Volume 82.5 fL (83.0-100.0); Monocytes # 1.7 K/mcL (0.0-1.3); Monocytes % 9.8 %; Neutrophils # 11.6 K/mcL (1.6-8.9); Red Blood Count 4.34 M/mcL (4.19-5.50); Red Cell Distribution Width 15.3 % (11.5-14.5); Segmented Neutrophils % 69.2 %
[2016-12-09 00:47] LABS: BUN/Creatinine Ratio 24 (6-26); Blood Urea Nitrogen 18 mg/dL (8-26); Carbon Dioxide 26 mEq/L (19-29); Chloride 98 mEq/L (98-109); Glucose 110 mg/dL (70-99); Osmolality,Calculated 275 (280-300); Potassium 5.6 mEq/L (3.5-4.5); Sodium 131 mEq/L (136-145); eGFR For African Americans > 60 (> 60); eGFR For Non-African Americans > 60 (> 60)
[2016-12-09 00:51] LABS: Platelet Count 182 K/mcL (140-400)
[2016-12-09] MEDS: *HR* HYDROmorphone 2 MG/ML SYRINGE IVP PRN ×4 (03:02→21:37)
[2016-12-09] MEDS: *HR* Enoxaparin 80 MG/0.8 ML SYRINGE SQ SCH ×2 (06:18→18:48)
--- NOTE | 2016-12-09 07:04 | Cardiothoracic Progress Note ---
Date of Encounter: 12/09/16 Time of Encounter: 07:02 - Assessment and plan (1) Empyema Current Visit: Yes Status: Acute The patient is recovering well from his right thoracotomy and decortication. The chest tube should remained on suction. He will continue his IV antibiotic therapy. He may be transferred to the stepdown unit when a bed is available. The assessment and plan as outlined above was discussed with the patient and/or family members who expressed understanding and agreement. All questions were answered. - Subjective Procedure(s) Performed: POD#4 S/P Right thoracotomy with decortication Interval history: The patient is resting in his hospital bed. His postoperative pain is fairly well controlled. Vital Signs, Last 4 Hours Temp Pulse Resp BP Pulse Ox 12/09/16 03:32 13 133/74 93 12/09/16 03:16 98.5 F 95 13 133/74 93 Oxgyen Flow Rate Oxygen Flow Rate (LPM) 1.5 Clinical Data, last 8 Hours Output, Chest Tube Drainage 20 Amount [Right Mediastinal #2] Output, Chest Tube Drainage 10 Amount [Right Mediastinal #2] Output, Chest Tube Drainage 0 Amount [Right Mediastinal #1] Output, Urine Amount 400 Output, Urine Amount 575 Weight 12/07/16 12/08/16 12/09/16 23:59 23:59 23:59 Weight 68.75 kg 64.98 kg - Physical Examination General: Conversant, No Apparent Distress Neck: No JVD, Normal carotid pulses Cardiac: Reg Rate and Rhythm, Normal S1 and S2, No Murmur Incision: No signs of infection, Dry/intact dressing Chest tubes: Minimal drainage, Other (No air leak.) Lungs: Normal Breath Sounds, No Wheeze, Rales, Rhonchi Neuro: Alert and responsive, No focal deficits noted Vascular: Normal capillary refill Musculoskeletal: Other (Right axillary fluid collection above the thoracotomy incision, unchanged.) Extremities: No Clubbing, No Cyanosis, No Edema - Labs 12/09/16 00:29 12/09/16 00:29 Lab Results, Last 24 hours 12/08/16 12/09/16 12/09/16 09:02 00:29 00:29 WBC 16.8 H Hgb 11.8 L Hct 35.8 L Plt Count 182 D APTT 79.7 H D Sodium 131 L Potassium 5.6 H Chloride 98 Carbon Dioxide 26 BUN 18 Creatinine 0.75 Glucose 110 H Calcium 9.0 - Imaging Chest Xray: image reviewed (No pneumothorax. Right volume loss. Small right pleural effusion.) Consult Discharge Plan - Plan Referrals: NONE,PCP [Primary Care Provider] - (december 10 at residency clinic with dr dial at 3:00)
[2016-12-09] MEDS: Sennosides/Docusate Sodium TABLET PO SCH ×2 (07:28→19:47)
[2016-12-09] MEDS: Magnesium Oxide 400 MG TABLET PO SCH ×2 (07:28→19:47)
[2016-12-09] MEDS: Nicotine 21 MG PATCH.TD24 TD SCH (07:30)
[2016-12-09] MEDS ORDERED: Aminoglycoside Consult 1 EACH MC ONE (09:24)
[2016-12-10] MEDS: *HR* HYDROmorphone 2 MG/ML SYRINGE IVP PRN ×7 (01:45→21:35)
[2016-12-10] MEDS: Vancomycin 1,250 MG in D5% in Water 250 ML IVPB SCH ×2 (02:00→08:13)
[2016-12-10] MEDS: *HR* OxyCODONE/APAP 5/325 TABLET PO PRN ×2 (03:36→19:51)
[2016-12-10] MEDS: *HR* Enoxaparin 80 MG/0.8 ML SYRINGE SQ SCH ×2 (04:57→17:23)
[2016-12-10] MEDS: Albuterol 2.5 MG/3 ML NEBULIZER IH SCH ×6 (05:09→23:37)
[2016-12-10] MEDS: Magnesium Oxide 400 MG TABLET PO SCH ×2 (08:12→19:51)
[2016-12-10] MEDS: Sennosides/Docusate Sodium TABLET PO SCH ×2 (08:12→19:51)
[2016-12-10] MEDS: Nicotine 21 MG PATCH.TD24 TD SCH (08:13)
--- NOTE | 2016-12-10 08:38 | Infectious Disease Progress No ---
Date of Encounter: 12/10/16 Time of Encounter: 08:38 - Assessment and Plan (1) Severe sepsis Current Visit: Yes Status: Resolved The patient had three SIRS criteria plus lactic acidosis on admission. Likely secondary to bacteremia. Improved. Tachycardia has resolved. The patient afebrile today. He continues to have leukocytosis, likely reactive due to surgery yesterday. Blood cultures drawn 11/30/16 are positive 2/2 sets for GAS. Repeat blood cultures drawn 12/04/16 are NGTD. (2) Bacteremia Current Visit: Yes Status: Acute Causative organism: GAS. Source unclear: Right hand cellulitis vs. PNA vs. empyema. Blood cultures drawn 11/30/16 are positive 2/2 sets. Repeat blood cultures drawn 12/04/16 are NGTD. TTE negative for vegetations. The patient has three minor Modified Hutchison's Criteria. DC vancomycin Continue Rocephin 2 grams IV daily. Duration of treatment depends on the clinical picture. Monitor renal function and for drug toxicity and dose-adjust antibiotics. (3) Empyema lung Current Visit: Yes Status: Acute Postop day 5 status post Right anterior thoracotomy with drainage of empyema, decortication of the lung and culture of the pleural fluid. Chest is removed today. 12/10/16 chest x-ray reveals no evidence of a pneumothorax, there is still right pleural effusion with associated atelectasis in the right lung base. Increased platelike atelectasis in the left lung base. 12/03/16 thoracentesis revealed exudative fluid consistent with empyema 12/03/16 bacteria seen on gram stain but culture shows no growth to date 12/05/16 intraoperative pleural fluid cultures reveals no growth to date Pulmonology/ Dr. Levine following CT surgery/ Dr. Krueger following (4) Septic embolism Current Visit: Yes Status: Acute Location: Bilateral lungs. CT of the chest revealed bilateral pulmonary nodules. Pulmonology consulted. Given bacteremia and patient's history of IVDU, likely septic emboli. Continue antibiotics as above. (5) PNA (pneumonia) Current Visit: Yes Status: Acute Location: RLL. Causative organism unclear, but possible GAS. 12/10/16 chest x-ray reveals no evidence of a pneumothorax, there is still right pleural effusion with associated atelectasis in the right lung base. Increased platelike atelectasis in the left lung base. Pulmonology following. Continue antibiotics as above. Qualifiers: Pneumonia type: due to unspecified organism Laterality: unspecified laterality Lung location: lower lobe of lung Qualified Code(s): J18.1 - Lobar pneumonia, unspecified organism (6) Cellulitis Current Visit: Yes Status: Ruled-out Location: Right hand. Resolving. Causative organism likely GAS. CT negative for necrotizing fasciitis. Ortho evaluation appreciated - no surgical intervention required at this time. Continue antibiotics as above. Qualifiers: Site of cellulitis: extremity Site of cellulitis of extremity: upper extremity Laterality: right Qualified Code(s): L03.113 - Cellulitis of right upper limb (7) Hand pain, right Current Visit: Yes Status: Acute Secondary to right hand trauma and cellulitis. Ortho consult noted. Venous doppler studies negative. Pain management per the primary team. (8) IV drug abuse Current Visit: Yes Status: Chronic Last use 2 months ago. Known Hep C positive. HIV negative. (9) Hyponatremia Current Visit: Yes Status: Acute (10) Hypomagnesemia Current Visit: Yes Status: Resolved (11) Pleural effusion Current Visit: Yes Status: Acute 12/10/16 chest x-ray reveals no evidence of a pneumothorax, there is still right pleural effusion with associated atelectasis in the right lung base. Increased platelike atelectasis in the left lung base. - Subjective Interval history: Patient seen and examined. Postop day 5 status post Right anterior thoracotomy with drainage of empyema, decortication of the lung and culture of the pleural fluid. Chest tubes were removed this morning and patient is sitting up in bed. Anticipate transferred out of ICU today. Patient denies fever, chills, chest pain, shortness of breath, hemoptysis, abdominal pain, nausea, vomiting, diarrhea, or leg edema. Infect Dis PN-Objective Data - Labs CBC & Chem 7: 12/09/16 00:29 12/09/16 00:29 Cultures: Cultures 12/04/16 00:47 Blood Culture - Final Peripheral Venipuncture No growth. 12/04/16 00:47 Blood Culture - Final Peripheral Venipuncture No growth. 12/05/16 19:30 Wound Culture - Final Other-Specify in Comments No growth. 12/03/16 15:00 Body Fluid Culture - Final Pleural Fluid 12/03/16 15:00 Acid Fast Stain - Final Pleural Fluid Serology 12/04/16 12/03/16 12/03/16 Range/Units 00:47 15:00 15:00 Pleural Fluid Volume 500.0 mL Pleural Appearance Cloudy A (Clear) Pleural RBC 0.002 (0.000 - 0.002) M/mcL Pleural Tot Nuc Cell 4630 H (0-1000) TNC/mcL Pleural Neutrophils 91.0 % Pleural Band Neuts Test Not Performed Pleural Eosinophils Test Not Performed Pleural Basophils Test Not Performed Pleural Lymphocytes % 7.0 % Pleural Monocytes % 2.0 % Pleural Other Cells % Test Not Performed Pleural Total Protein 3.1 (No Ref Range) g/dL Pleural LDH 1758 (No Ref Range) Units/L Pleural Glucose 13 (No Ref Range) mg/dL HIV Ag/Ab Combo Qual Nonreactive (Nonreactive) Exam - Constitutional Vitals: Temp Pulse Resp BP Pulse Ox 99.0 F 101 18 124/73 98 12/10/16 07:35 12/10/16 08:30 12/10/16 08:30 12/10/16 08:30 12/10/16 08:30 General appearance: cooperative, mild distress, no febrile - Head Head exam: Present: atraumatic, normal inspection, normocephalic - Eye Eye exam: Present: EOMI, conjuntiva pink Additional comments: No subconjunctival hemorrhage noted. - ENT ENT exam: Present: mucous membranes moist, normal oropharynx - Neck Neck exam: Present: normal inspection. Absent: lymphadenopathy, tenderness, thyromegaly - Respiratory Respiratory exam: Present: decreased breath sounds. Absent: accessory muscle use, rales, respiratory distress, rhonchi, wheezes Additional comments: RLL - Cardiovascular Cardiovascular exam: Present: RRR, +S1, +S2 - GI/Abdominal GI/Abdominal exam: Present: normal bowel sounds, soft. Absent: guarding, rebound, tenderness - Extremities Exam Extremities exam: Present: full ROM, normal inspection. Absent: pedal edema Additional comments: Right upper extremity edema has resolved, no splinter hemorrhages - Back Exam Back exam: Present: normal inspection. Absent: tenderness - Neurological Exam Neurological exam: Present: alert, oriented X3. Absent: altered, motor sensory deficit - Psychiatric Psychiatric exam: Present: normal affect, normal mood - Skin Skin exam: Present: dry, intact, normal color, warm Additional comments: Dressing in place over Chest tube removal sites C/D/I Consult Discharge Plan - Plan Referrals: NONE,PCP [Primary Care Provider] - (december 10 at residency clinic with dr dial at 3:00) - Attending Attestation I examined this patient and my medical decision-making was reviewed with the Resident Physician. I agree with the documented findings, disposition and treatment plan as described except to the extent set forth below.
--- NOTE | 2016-12-10 09:14 | Cardiothoracic Progress Note ---
Date of Encounter: 12/10/16 Time of Encounter: 09:13 - Assessment and plan (1) Cellulitis Current Visit: Yes Status: Acute The chest tubes were removed. We will check a stat portable chest x-ray. I will transfer the patient to the floor. Qualifiers: Site of cellulitis: extremity Site of cellulitis of extremity: upper extremity Laterality: right Qualified Code(s): L03.113 - Cellulitis of right upper limb - Subjective Interval history: The patient has no complaints. Vital Signs, Last 4 Hours Temp Pulse Resp BP Pulse Ox 12/10/16 08:30 101 18 124/73 98 12/10/16 07:35 99.0 F 12/10/16 07:32 16 99 Oxgyen Flow Rate Oxygen Flow Rate (LPM) 0 Clinical Data, last 8 Hours Output, Chest Tube Drainage 10 Amount [Right Mediastinal #2] Output, Urine Amount 750 Output, Urine Amount 250 Weight 12/08/16 12/09/16 12/10/16 23:59 23:59 23:59 Weight 68.75 kg 64.98 kg Lungs are clear to percussion and auscultation. Heart is in a normal sinus rhythm. His incision is healing well without signs of infection. Chest tube drainage is minimal and there is no air leak. - Labs 12/09/16 00:29 12/09/16 00:29 Consult Discharge Plan - Plan Referrals: NONE,PCP [Primary Care Provider] - (december 10 at residency clinic with dr dial at 3:00)
[2016-12-10] MEDS ORDERED: Ipratropium/Albuterol Neb 3 ML IH PRN (09:40)
[2016-12-10] MEDS ORDERED: Naloxone 0.4 MG/ML INJ IVP PRN (09:40)
[2016-12-10] MEDS ORDERED: Ondansetron 4 MG/2 ML VIAL IVP PRN (09:40)
--- NOTE | 2016-12-10 09:57 | Pulmonology Progress Note ---
<Ronaldo Bailey - Last Filed: 12/10/16 14:58> Date of Encounter: 12/10/16 Time of Encounter: 09:57 Assessment and Plan (1) Empyema Current Visit: Yes Status: Acute Patient had an empyema of the right lung. He underwent a thoracotomy on . Chest was placed for drainage at that time. The chest tubes were removed this morning by Dr. Krueger. Patient will be transferred out of the ICU today. (2) Group A streptococcal infection Current Visit: Yes Status: Acute Patient blood cultures are positive for strep pyogenes. Patient is currently being treated ceftriaxone. (3) Septic thrombophlebitis of upper extremity Current Visit: Yes Status: Acute Patient is currently on Lovenox twice a day. Patient is currently getting ceftriaxone. (4) Hyperkalemia Current Visit: Yes Status: Acute Patient has hyperkalemia. Current potassium is 5.6. We will continue to monitor the patient's potassium at this time. Subjective Principal diagnosis: Empyema Interval history: Patient states that he is doing well today. States that he is not having any issues with breathing at this time. Says he is very happy that the chest tubes are out. Patient noted that his right hand has been improving significantly. States the swelling has gone down dramatically. He does mention that he still is having some decrease in use of the right hand. He states that it is somewhat painful and difficult to flex at the MCP joints. Overall the patient states that he is feeling better. Objective PUL Vital signs: Last Vital Signs Temp 99.0 F 12/10/16 07:35 Pulse 101 12/10/16 08:30 Resp 18 12/10/16 08:30 BP 124/73 12/10/16 08:30 Pulse Ox 98 12/10/16 08:30 General appearance: no acute distress Eyes: nonicteric ENT: oropharynx moist Neck: supple, no lymphadenopathy, no JVD Effort: normal Cardiovascular: regular rate and rhythm Gastrointestinal: normoactive bowel sounds Integumentary: other (Patient has wrinkling of the right hand. Swelling has improved.) Extremities: no cyanosis Musculoskeletal: other (Decreased range of motion the right wrist and MCP joints.) normal mental status, non-focal exam mood appropriate, affect normal Results - Laboratory Findings CBC and BMP: 12/09/16 00:29 12/09/16 00:29 ABG ABG pH 7.40 pH Units (7.32-7.45) 12/06/16 04:45 ABG pCO2 44 mmHg (35-45) 12/06/16 04:45 ABG pO2 61 mmHg (85-104) L 12/06/16 04:45 ABG O2 Saturation 91 % (95-98) L 12/06/16 04:45 PT/INR, D-dimer PT 11.7 Seconds (9.4-12.1) 12/06/16 17:47 Abnormal lab findings: Abnormal lab results WBC 16.8 K/mcL (4.3-11.1) H 12/09/16 00:29 Hgb 11.8 g/dL (12.9-16.9) L 12/09/16 00:29 Hct 35.8 % (37.5-50.1) L 12/09/16 00:29 MCV 82.5 fL (83.0-100.0) L 12/09/16 00:29 MCH 27.2 pg (28.0-33.3) L 12/09/16 00:29 RDW 15.3 % (11.5-14.5) H 12/09/16 00:29 Band Neutrophils % 6.0 % (0-4) H 12/05/16 08:51 Metamyelocytes % 4.0 % (0) H 12/01/16 04:20 Myelocytes % 2.0 % (0) H 12/05/16 08:51 Neutrophils # 11.6 K/mcL (1.6-8.9) H 12/09/16 00:29 Monocytes # 1.7 K/mcL (0.0-1.3) H 12/09/16 00:29 Reactive Lymphocytes Present (Not Present) A 12/05/16 21:10 Toxic Granulation Present (Not Present) A 12/03/16 04:19 Toxic Vacuolation Present (Not Present) A 12/01/16 04:20 Platelet Estimate Increased (Normal) H 12/07/16 01:21 Clumped Platelets Few (Not Present) A 12/01/16 04:20 Large Platelets Present (Not Present) A 12/06/16 04:10 Hypochromasia Present (Not Present) A 12/01/16 04:20 Anisocytosis 1+ (Not Present) A 12/02/16 01:06 APTT 79.7 Seconds (26.0-36.0) H D 12/08/16 09:02 ABG pO2 61 mmHg (85-104) L 12/06/16 04:45 ABG HCO3 27.3 mEQ/L (21-27) H 12/06/16 04:45 ABG Total CO2 28.7 mEq/L (20-26) H 12/06/16 04:45 ABG O2 Saturation 91 % (95-98) L 12/06/16 04:45 Sodium 131 mEq/L (136-145) L 12/09/16 00:29 Potassium 5.6 mEq/L (3.5-4.5) H 12/09/16 00:29 Glucose 110 mg/dL (70-99) H 12/09/16 00:29 POC Glucose 95 (58-89) H 12/05/16 20:01 Calculated Osmolality 275 (280-300) L 12/09/16 00:29 Lactic Acid 2.6 mmol/L (0.5-2.2) H 11/30/16 20:18 Albumin 1.8 g/dL (3.5-5.0) L 12/05/16 08:51 Globulin 4.7 g/dL (2.4-3.5) H 12/05/16 08:51 Albumin/Globulin Ratio 0.4 (1.1-2.2) L 12/05/16 08:51 Pleural Appearance Cloudy (Clear) A 12/03/16 15:00 Pleural Tot Nuc Cell 4630 TNC/mcL (0-1000) H 12/03/16 15:00 Streptococcus sp PCR DETECTED (Not Detect) A 11/30/16 12:53 Group A Strep DNA DETECTED (Not Detect) A 11/30/16 12:53 - Microbiology Findings Microbiology Findings: Microbiology, Last 48 Hours 12/05/16 19:30 Anaerobic Culture - Final Pleural Fluid No anaerobes were recovered. 12/04/16 00:47 Blood Culture - Final Peripheral Venipuncture No growth. 12/04/16 00:47 Blood Culture - Final Peripheral Venipuncture No growth. 12/05/16 19:30 Wound Culture - Final Other-Specify in Comments No growth. - Clinical Findings Intake & Output: Intake & Output 12/09/16 12/10/16 12/10/16 23:59 07:59 15:59 Intake Total 250 / 250 490 / 490 Output Total 935 / 935 1010 / 1010 0 / 0 Balance -685 / -685 -520 / -520 0 / 0 Consult Discharge Plan - Plan Referrals: NONE,PCP [Primary Care Provider] - (december 10 at residency clinic with dr dial at 3:00) <Loli Davis - Last Filed: 12/10/16 17:04> Date of Encounter: 12/10/16 Assessment and Plan (1) PNA (pneumonia) Current Visit: Yes Status: Acute Qualifiers: Pneumonia type: due to unspecified organism Laterality: unspecified laterality Lung location: lower lobe of lung Qualified Code(s): J18.1 - Lobar pneumonia, unspecified organism (2) Empyema Current Visit: Yes Status: Acute (3) Cellulitis Current Visit: Yes Status: Ruled-out Qualifiers: Site of cellulitis: extremity Site of cellulitis of extremity: upper extremity Laterality: right Qualified Code(s): L03.113 - Cellulitis of right upper limb Objective PUL Vital signs: Last Vital Signs Temp 99.0 F 12/10/16 15:48 Pulse 113 12/10/16 11:59 Resp 20 12/10/16 16:43 BP 124/73 12/10/16 11:59 Pulse Ox 97 12/10/16 16:43 Results - Laboratory Findings CBC and BMP: 12/09/16 00:29 12/09/16 00:29 ABG ABG pH 7.40 pH Units (7.32-7.45) 12/06/16 04:45 ABG pCO2 44 mmHg (35-45) 12/06/16 04:45 ABG pO2 61 mmHg (85-104) L 12/06/16 04:45 ABG O2 Saturation 91 % (95-98) L 12/06/16 04:45 PT/INR, D-dimer PT 11.7 Seconds (9.4-12.1) 12/06/16 17:47 Abnormal lab findings: Abnormal lab results WBC 16.8 K/mcL (4.3-11.1) H 12/09/16 00:29 Hgb 11.8 g/dL (12.9-16.9) L 12/09/16 00:29 Hct 35.8 % (37.5-50.1) L 12/09/16 00:29 MCV 82.5 fL (83.0-100.0) L 12/09/16 00:29 MCH 27.2 pg (28.0-33.3) L 12/09/16 00:29 RDW 15.3 % (11.5-14.5) H 12/09/16 00:29 Band Neutrophils % 6.0 % (0-4) H 12/05/16 08:51 Metamyelocytes % 4.0 % (0) H 12/01/16 04:20 Myelocytes % 2.0 % (0) H 12/05/16 08:51 Neutrophils # 11.6 K/mcL (1.6-8.9) H 12/09/16 00:29 Monocytes # 1.7 K/mcL (0.0-1.3) H 12/09/16 00:29 Reactive Lymphocytes Present (Not Present) A 12/05/16 21:10 Toxic Granulation Present (Not Present) A 12/03/16 04:19 Toxic Vacuolation Present (Not Present) A 12/01/16 04:20 Platelet Estimate Increased (Normal) H 12/07/16 01:21 Clumped Platelets Few (Not Present) A 12/01/16 04:20 Large Platelets Present (Not Present) A 12/06/16 04:10 Hypochromasia Present (Not Present) A 12/01/16 04:20 Anisocytosis 1+ (Not Present) A 12/02/16 01:06 APTT 79.7 Seconds (26.0-36.0) H D 12/08/16 09:02 ABG pO2 61 mmHg (85-104) L 12/06/16 04:45 ABG HCO3 27.3 mEQ/L (21-27) H 12/06/16 04:45 ABG Total CO2 28.7 mEq/L (20-26) H 12/06/16 04:45 ABG O2 Saturation 91 % (95-98) L 12/06/16 04:45 Sodium 131 mEq/L (136-145) L 12/09/16 00:29 Potassium 5.6 mEq/L (3.5-4.5) H 12/09/16 00:29 Glucose 110 mg/dL (70-99) H 12/09/16 00:29 POC Glucose 95 (58-89) H 12/05/16 20:01 Calculated Osmolality 275 (280-300) L 12/09/16 00:29 Lactic Acid 2.6 mmol/L (0.5-2.2) H 11/30/16 20:18 Albumin 1.8 g/dL (3.5-5.0) L 12/05/16 08:51 Globulin 4.7 g/dL (2.4-3.5) H 12/05/16 08:51 Albumin/Globulin Ratio 0.4 (1.1-2.2) L 12/05/16 08:51 Pleural Appearance Cloudy (Clear) A 12/03/16 15:00 Pleural Tot Nuc Cell 4630 TNC/mcL (0-1000) H 12/03/16 15:00 Streptococcus sp PCR DETECTED (Not Detect) A 11/30/16 12:53 Group A Strep DNA DETECTED (Not Detect) A 11/30/16 12:53 - Microbiology Findings Microbiology Findings: Microbiology, Last 48 Hours 12/05/16 19:30 Anaerobic Culture - Final Pleural Fluid No anaerobes were recovered. 12/04/16 00:47 Blood Culture - Final Peripheral Venipuncture No growth. 12/04/16 00:47 Blood Culture - Final Peripheral Venipuncture No growth. - Clinical Findings Intake & Output: Intake & Output 12/10/16 12/10/16 12/10/16 07:59 15:59 23:59 Intake Total 490 / 490 Output Total 1010 / 1010 625 / 625 Balance -520 / -520 -625 / -625 - Attending Attestation I examined this patient and my medical decision-making was reviewed with the Resident Physician. I agree with the documented findings, disposition and treatment plan as described except to the extent set forth below. Patient seen and examined. Labs, radiology, chart personally reviewed. Agree with resident's history and physical, assessment, plan with following comments: [employer]: Patient follows commands, Pulmonary: Acceptable oxygenation and ventilation and chest tube as per cardiothoracic management. Cardiovascular: stable GI: Nutrition per dietary and GI prophylaxis per routine Heme: DVT prophylaxis per routine ID: Continue antibiotics and plan to de-escalation. Check with infectious disease regarding vancomycin Renal; urine out put and renal funtion reviewed Endorcine: blood glucose is monitored Lines: all lines checked and no evidence of infections Skin: skin care to prevent pressure ulcers per nursing routine care Patient is awaiting to be transferred to the floor.
--- NOTE | 2016-12-10 15:47 | Internal Med Progress Note ---
Date of Encounter: 12/10/16 Time of Encounter: 13:40 - Assessment and plan (1) DVT (deep venous thrombosis) Current Visit: Yes Status: Acute Assessment and plan: Patient is noted to have septic thrombophlebitis of right ulnar vein. Continue therapeutic dose of subcutaneous Lovenox. Plan to start Coumadin. Right upper extremity elevation and supportive care. Pain control. Qualifiers: DVT location: upper extremity Affected thrombotic vein of extremity: ulnar Chronicity: acute Laterality: right Qualified Code(s): I82.621 - Acute embolism and thrombosis of deep veins of right upper extremity (2) Empyema Current Visit: Yes Status: Acute Assessment and plan: Right-sided empyema secondary to septic emboli and bacteremia due to IV drug use. Cardiothoracic surgery has been consulted, patient underwent right thoracotomy and decortication. Chest tube removed today. Continue pain control with when necessary IV Dilaudid and oral Percocet, continues to require multiple doses of IV pain medication. Chest x-ray reviewed independently, continues to show right-sided pleural effusion and atelectasis. Encouraged out of bed to chair and incentive spirometry. Discussed with nurse. Continue IV antibiotics. (3) Severe sepsis Current Visit: Yes Status: Resolved (4) Gram-positive bacteremia Current Visit: Yes Status: Acute Assessment and plan: Secondary to likely IV drug use. 2 out of 2 initial blood cultures grew group A Streptococcus. Repeat blood cultures are so far negative; continue IV Rocephin and vancomycin. Infectious diseases on board. (5) Cellulitis Current Visit: Yes Status: Ruled-out Qualifiers: Site of cellulitis: extremity Site of cellulitis of extremity: upper extremity Laterality: right Qualified Code(s): L03.113 - Cellulitis of right upper limb (6) PNA (pneumonia) Current Visit: Yes Status: Acute Assessment and plan: CT chest shows bilateral pneumonia with right-sided pleural effusion. Pulmonology was consulted and patient underwent right-sided thoracentesis, consistent with exudative fluid. Repeat CT chest shows reaccumulation of fluid , possible loculation with compressive atelectasis. CT surgery consulted, underwent thoracotomy and decortication. Continue IV antibiotics and supplemental oxygen as needed. Duration of antibiotics per ID recommendations. Patient continues to have mild tachycardia, right-sided chest pain, leukocytosis , hyponatremia. Qualifiers: Pneumonia type: due to unspecified organism Laterality: unspecified laterality Lung location: lower lobe of lung Qualified Code(s): J18.1 - Lobar pneumonia, unspecified organism (7) Septic embolism Current Visit: Yes Status: Acute (8) Tobacco abuse Current Visit: Yes Status: Chronic Assessment and plan: Continue nicotine transdermal patch. (9) IV drug abuse Current Visit: Yes Status: Chronic - Subjective Interval history: Feels better but continues to require IV Dilaudid for right chest pain control. Chest tubes have been removed today. Right hand pain and swelling improving. Tolerates diet. - Constitutional Vitals: Temp Pulse Resp BP Pulse Ox 99.0 F 113 20 124/73 97 12/10/16 12:33 12/10/16 11:59 12/10/16 11:59 12/10/16 11:59 12/10/16 11:59 General appearance: Present: cachectic, A&O X 3, answers questions appropriately - Respiratory Respiratory exam: Present: decreased breath sounds (At right base), CTAB. Absent: accessory muscle use, rales, rhonchi, wheezes - Cardiovascular Cardiovascular exam: Present: RRR, +S1, +S2, tachycardia. Absent: diastolic murmur, gallop, rubs, systolic murmur - GI/Abdominal GI/Abdominal exam: Present: normal bowel sounds, soft, no peritoneal signs. Absent: distended, tenderness - Extremities Exam Extremities exam: Present: full ROM, warm, radial pulses palpable and symmetrical. Absent: calf tenderness, cyanotic, pedal edema Internal Medicine: Result - Labs CBC & Chem 7: 12/09/16 00:29 12/09/16 00:29 - ABG Interpretation ABG results: ABG ABG pH 7.40 pH Units (7.32-7.45) 12/06/16 04:45 ABG pCO2 44 mmHg (35-45) 12/06/16 04:45 ABG pO2 61 mmHg (85-104) L 12/06/16 04:45 ABG O2 Saturation 91 % (95-98) L 12/06/16 04:45 PT/INR, D-dimer PT 11.7 Seconds (9.4-12.1) 12/06/16 17:47 - Impressions Impressions Chest X-Ray 12/10/16 09:16 IMPRESSION: 1. Removal of the right-sided chest tubes without evidence of a pneumothorax. There is still a right pleural effusion with associated atelectasis in the right lung base. 2. Increased platelike atelectasis in the left lung base. D/ / 12/10/2016 10:04:48 Misbah Vaz MD / Agnieszka Pollack Interpreting Provider: Misbah Vaz MD Consult Discharge Plan - Plan Referrals: NONE,PCP [Primary Care Provider] - (december 10 at residency clinic with dr dial at 3:00)
[2016-12-10] MEDS ORDERED: Vancomycin 1,250 MG in D5% in Water 250 ML IVPB SCH (17:00)
[2016-12-10 18:44] LABS: Basophils # 0.1 K/mcL (0.0-0.2); Basophils % 0.4 %; Eosinophils # 0.2 K/mcL (0.0-0.6); Eosinophils % 1.1 %; Hemoglobin 11.6 g/dL (12.9-16.9); Immature Granulocytes % 1.4 % (0-4); Lymphocytes # 2.6 K/mcL (0.6-4.6); Lymphocytes % 17.2 %; Mean Corpuscular HGB Conc 32.2 g/dL (31.6-35.5); Mean Corpuscular Hemoglobin 27.1 pg (28.0-33.3); Mean Corpuscular Volume 84.1 fL (83.0-100.0); Mean Platelet Volume 8.6 fL (9.4-12.4); Monocytes # 1.7 K/mcL (0.0-1.3); Monocytes % 11.1 %; Neutrophils # 10.5 K/mcL (1.6-8.9); Platelet Count 772 K/mcL (140-400); Red Blood Count 4.28 M/mcL (4.19-5.50); Red Cell Distribution Width 15.1 % (11.5-14.5); Segmented Neutrophils % 68.8 %
[2016-12-11] MEDS: *HR* OxyCODONE/APAP 5/325 TABLET PO PRN ×5 (00:07→21:08)
[2016-12-11] MEDS: *HR* HYDROmorphone 2 MG/ML SYRINGE IVP PRN ×7 (01:47→22:35)
[2016-12-11] MEDS: Albuterol 2.5 MG/3 ML NEBULIZER IH SCH ×6 (03:25→23:24)
[2016-12-11] MEDS: *HR* Enoxaparin 80 MG/0.8 ML SYRINGE SQ SCH ×2 (04:29→18:22)
[2016-12-11 06:51] LABS: Basophils # 0.1 K/mcL (0.0-0.2); Basophils % 0.7 %; Eosinophils # 0.1 K/mcL (0.0-0.6); Eosinophils % 1.3 %; Hematocrit 34.4 % (37.5-50.1); Immature Granulocytes % 1.8 % (0-4); Lymphocytes # 2.1 K/mcL (0.6-4.6); Lymphocytes % 19.9 %; Mean Corpuscular Volume 84.3 fL (83.0-100.0); Mean Platelet Volume 8.7 fL (9.4-12.4); Monocytes # 1.4 K/mcL (0.0-1.3); Monocytes % 13.2 %; Neutrophils # 6.5 K/mcL (1.6-8.9); Platelet Count 662 K/mcL (140-400); Red Blood Count 4.08 M/mcL (4.19-5.50); Red Cell Distribution Width 14.8 % (11.5-14.5); Segmented Neutrophils % 63.1 %
[2016-12-11 07:05] LABS: BUN/Creatinine Ratio 36 (6-26); Blood Urea Nitrogen 25 mg/dL (8-26); Calcium 9.1 mg/dL (8.6-10.8); Carbon Dioxide 31 mEq/L (19-29); Chloride 96 mEq/L (98-109); Glucose 101 mg/dL (70-99); Osmolality,Calculated 277 (280-300); Sodium 131 mEq/L (136-145); eGFR For African Americans > 60 (> 60); eGFR For Non-African Americans > 60 (> 60)
[2016-12-11 07:41] LABS: Potassium 4.4 mEq/L (3.5-4.5)
--- NOTE | 2016-12-11 08:57 | Cardiothoracic Progress Note ---
Date of Encounter: 12/11/16 Time of Encounter: 08:55 - Assessment and plan (1) Empyema Current Visit: Yes Status: Acute The patient is recovering well from his right thoracotomy and decortication. Cardiothoracic surgery will sign off at this time. The assessment and plan as outlined above was discussed with the patient and/or family members who expressed understanding and agreement. All questions were answered. - Subjective Procedure(s) Performed: POD#6 S/P Right thoracotomy with decortication Interval history: The patient is sitting in a chair at the bedside. He has no complaints. Vital Signs, Last 4 Hours Temp 12/11/16 07:00 98.4 F Oxgyen Flow Rate Oxygen Flow Rate (LPM) 0 Clinical Data, last 8 Hours Output, Urine Amount 750 Output, Urine Amount 450 Weight 12/09/16 12/10/16 12/11/16 23:59 23:59 23:59 Weight 64.98 kg 56.5 kg - Physical Examination General: Conversant, No Apparent Distress Neck: No JVD, Normal carotid pulses Cardiac: Reg Rate and Rhythm, Normal S1 and S2, No Murmur Incision: No signs of infection, Dry/intact dressing Lungs: Normal Breath Sounds (Left lung goldsmith.), Decreased breath sounds (Right base.) Neuro: Alert and responsive, No focal deficits noted Vascular: Normal capillary refill Musculoskeletal: Other (Right axillary fluid collection markedly decreased. No erythema, pain, tenderness and redness, warmth.) Extremities: No Clubbing, No Cyanosis, No Edema, Normal Pulses - Labs 12/11/16 06:43 12/11/16 06:43 Lab Results, Last 24 hours 12/10/16 12/11/16 12/11/16 18:36 06:43 06:43 WBC 15.3 H 10.3 Hgb 11.6 L 11.0 L Hct 36.0 L 34.4 L Plt Count 772 H D 662 H Sodium 131 L Potassium 4.4 D Chloride 96 L Carbon Dioxide 31 H BUN 25 Creatinine 0.69 L Glucose 101 H Calcium 9.1 Consult Discharge Plan - Plan Referrals: NONE,PCP [Primary Care Provider] - (december 10 at residency clinic with dr dial at 3:00)
[2016-12-11] MEDS: Sennosides/Docusate Sodium TABLET PO SCH ×2 (08:59→21:08)
[2016-12-11] MEDS: Magnesium Oxide 400 MG TABLET PO SCH ×2 (08:59→21:08)
[2016-12-11] MEDS: Nicotine 21 MG PATCH.TD24 TD SCH (09:00)
--- NOTE | 2016-12-11 11:20 | Infectious Disease Progress No ---
Date of Encounter: 12/11/16 Time of Encounter: 11:18 - Assessment and Plan (1) Severe sepsis Current Visit: Yes Status: Resolved The patient had three SIRS criteria plus lactic acidosis on admission. Likely secondary to bacteremia. Improved. Tachycardia has resolved. The patient afebrile today. He continues to have leukocytosis, likely reactive due to surgery yesterday. Blood cultures drawn 11/30/16 are positive 2/2 sets for GAS. Repeat blood cultures drawn 12/04/16 are NGTD. (2) Bacteremia Current Visit: Yes Status: Acute Causative organism: GAS. Source unclear: Right hand cellulitis vs. PNA vs. empyema. Blood cultures drawn 11/30/16 are positive 2/2 sets. Repeat blood cultures drawn 12/04/16 are NGTD. TTE negative for vegetations. The patient has three minor Modified Hutchison's Criteria. DC vancomycin Continue Rocephin 2 grams IV daily. Will likely switch to oral antibiotics upon discharge. Duration of treatment depends on the clinical picture. Monitor renal function and for drug toxicity and dose-adjust antibiotics. (3) Empyema lung Current Visit: Yes Status: Acute Status post Right anterior thoracotomy with drainage of empyema, decortication of the lung and culture of the pleural fluid 12/05/16. Chest tube removed . 12/10/16 chest x-ray reveals no evidence of a pneumothorax, there is still right pleural effusion with associated atelectasis in the right lung base. Increased platelike atelectasis in the left lung base. 12/03/16 thoracentesis revealed exudative fluid consistent with empyema 12/03/16 bacteria seen on gram stain but culture shows no growth to date 12/05/16 intraoperative pleural fluid cultures reveals no growth to date Pulmonology/ Dr. Levine following CT surgery/ Dr. Krueger following (4) Septic embolism Current Visit: Yes Status: Acute Location: Bilateral lungs. CT of the chest revealed bilateral pulmonary nodules. Pulmonology consulted. Given bacteremia and patient's history of IVDU, likely septic emboli. Continue antibiotics as above. (5) PNA (pneumonia) Current Visit: Yes Status: Acute Location: RLL. Causative organism unclear, but possible GAS. 12/10/16 chest x-ray reveals no evidence of a pneumothorax, there is still right pleural effusion with associated atelectasis in the right lung base. Increased platelike atelectasis in the left lung base. Pulmonology following. Continue antibiotics as above. Qualifiers: Pneumonia type: due to unspecified organism Laterality: unspecified laterality Lung location: lower lobe of lung Qualified Code(s): J18.1 - Lobar pneumonia, unspecified organism (6) Cellulitis Current Visit: Yes Status: Ruled-out Location: Right hand. Resolving. Causative organism likely GAS. CT negative for necrotizing fasciitis. Ortho evaluation appreciated - no surgical intervention required at this time. Continue antibiotics as above. Qualifiers: Site of cellulitis: extremity Site of cellulitis of extremity: upper extremity Laterality: right Qualified Code(s): L03.113 - Cellulitis of right upper limb (7) Hand pain, right Current Visit: Yes Status: Acute Secondary to right hand trauma and cellulitis. Ortho consult noted. Venous doppler studies negative. Pain management per the primary team. (8) IV drug abuse Current Visit: Yes Status: Chronic Last use 2 months ago. Known Hep C positive. HIV negative. (9) Hyponatremia Current Visit: Yes Status: Acute (10) Hypomagnesemia Current Visit: Yes Status: Resolved (11) Pleural effusion Current Visit: Yes Status: Acute 12/10/16 chest x-ray reveals no evidence of a pneumothorax, there is still right pleural effusion with associated atelectasis in the right lung base. Increased platelike atelectasis in the left lung base. - Subjective Interval history: Patient seen and examined. Postop day 6 status post Right anterior thoracotomy with drainage of empyema, decortication of the lung and culture of the pleural fluid. Chest tubes were removed yesterday and patient is sitting up in bed. Anticipate transferred out of ICU when bed available. Patient denies fever, chills, chest pain, shortness of breath, hemoptysis, abdominal pain, nausea, vomiting, diarrhea, or leg edema. Infect Dis PN-Objective Data - Labs CBC & Chem 7: 12/11/16 06:43 12/11/16 06:43 Labs: Laboratory Results - last 24 hr 12/10/16 12/11/16 12/11/16 18:36 06:43 06:43 WBC 15.3 H 10.3 RBC 4.28 4.08 L Hgb 11.6 L 11.0 L Hct 36.0 L 34.4 L MCV 84.1 84.3 MCH 27.1 L 27.0 L MCHC 32.2 32.0 RDW 15.1 H 14.8 H Plt Count 772 H D 662 H MPV 8.6 L 8.7 L Immature Gran % 1.4 1.8 Seg Neutrophils % 68.8 63.1 Lymphocytes % 17.2 19.9 Monocytes % 11.1 13.2 Eosinophils % 1.1 1.3 Basophils % 0.4 0.7 Neutrophils # 10.5 H 6.5 Lymphocytes # 2.6 2.1 Monocytes # 1.7 H 1.4 H Eosinophils # 0.2 0.1 Basophils # 0.1 0.1 Sodium 131 L Potassium 4.4 D Chloride 96 L Carbon Dioxide 31 H BUN 25 Creatinine 0.69 L Est GFR ( Amer) > 60 Est GFR (Non-Af Amer) > 60 BUN/Creatinine Ratio 36 H Glucose 101 H Calculated Osmolality 277 L Calcium 9.1 Cultures: Cultures 12/05/16 19:30 Anaerobic Culture - Final Pleural Fluid No anaerobes were recovered. 12/04/16 00:47 Blood Culture - Final Peripheral Venipuncture No growth. 12/04/16 00:47 Blood Culture - Final Peripheral Venipuncture No growth. 12/05/16 19:30 Wound Culture - Final Other-Specify in Comments No growth. 12/03/16 15:00 Body Fluid Culture - Final Pleural Fluid 12/03/16 15:00 Acid Fast Stain - Final Pleural Fluid Serology 12/04/16 12/03/16 12/03/16 Range/Units 00:47 15:00 15:00 Pleural Fluid Volume 500.0 mL Pleural Appearance Cloudy A (Clear) Pleural RBC 0.002 (0.000 - 0.002) M/mcL Pleural Tot Nuc Cell 4630 H (0-1000) TNC/mcL Pleural Neutrophils 91.0 % Pleural Band Neuts Test Not Performed Pleural Eosinophils Test Not Performed Pleural Basophils Test Not Performed Pleural Lymphocytes % 7.0 % Pleural Monocytes % 2.0 % Pleural Other Cells % Test Not Performed Pleural Total Protein 3.1 (No Ref Range) g/dL Pleural LDH 1758 (No Ref Range) Units/L Pleural Glucose 13 (No Ref Range) mg/dL HIV Ag/Ab Combo Qual Nonreactive (Nonreactive) Exam - Constitutional Vitals: Temp Pulse Resp BP Pulse Ox 98.4 F 100 15 124/73 94 12/11/16 07:00 12/11/16 09:21 12/11/16 09:21 12/11/16 09:21 12/11/16 09:21 General appearance: cooperative, no acute distress, thin, no febrile - Head Head exam: Present: atraumatic, normal inspection, normocephalic - Eye Eye exam: Present: PERRL, conjuntiva pink Additional comments: no subconjuntival hemorrhages noted - ENT ENT exam: Present: mucous membranes moist, normal oropharynx - Neck Neck exam: Present: full ROM, normal inspection. Absent: lymphadenopathy - Respiratory Respiratory exam: Present: decreased breath sounds (RLL). Absent: accessory muscle use, respiratory distress - Cardiovascular Cardiovascular exam: Present: RRR, +S1, +S2 - GI/Abdominal GI/Abdominal exam: Present: guarding, normal bowel sounds, soft. Absent: tenderness - Extremities Exam Extremities exam: Present: full ROM, normal inspection. Absent: pedal edema Additional comments: no edema or erythema RUE - Neurological Exam Neurological exam: Present: alert, oriented X3. Absent: altered - Skin Skin exam: Present: dry, intact, normal color, warm Additional comments: dressing C/D/I over previous chest tube sites Consult Discharge Plan - Plan Referrals: NONE,PCP [Primary Care Provider] - (december 10 at residency clinic with dr dial at 3:00) - Attending Attestation I examined this patient and my medical decision-making was reviewed with the Resident Physician. I agree with the documented findings, disposition and treatment plan as described except to the extent set forth below.
--- NOTE | 2016-12-11 18:14 | Internal Med Progress Note ---
Date of Encounter: 12/11/16 Time of Encounter: 17:50 - Assessment and plan (1) Empyema Current Visit: Yes Status: Acute Assessment and plan: Right-sided empyema - secondary to septic emboli and bacteremia due to IV drug use - slowly improving Cardiothoracic surgery consult - status post right thoracotomy and decortication , Chest tube removed Continue IV Dilaudid and oral Percocet as needed for pain Chest x-ray - continues to show large right-sided pleural effusion and atelectasis Encouraged out of bed to chair and incentive spirometry, Continue IV Rocephin ID following patient - appreciate input (2) Septic thrombophlebitis of upper extremity Current Visit: Yes Status: Acute Assessment and plan: Cellulitis and septic thrombophlebitis of right hand - improving slowly - causative organism likely GAS CT of the hand - negative for necrotizing fasciitis Orthopedics consult - no surgical intervention at this time Continue IV Rocephin, Lovenox 1 mg/kg twice a day (3) DVT (deep venous thrombosis) Current Visit: Yes Status: Acute Assessment and plan: Patient is noted to have septic thrombophlebitis of right ulnar vein Continue therapeutic dose of subcutaneous Lovenox Plan to start Coumadin, Right upper extremity elevation and supportive care, Pain control Qualifiers: DVT location: upper extremity Affected thrombotic vein of extremity: ulnar Chronicity: acute Laterality: right Qualified Code(s): I82.621 - Acute embolism and thrombosis of deep veins of right upper extremity (4) Septic embolism Current Visit: Yes Status: Acute Assessment and plan: Septic embolism to both lungs - continue IV antibiotics CT chest - bilateral pulmonary nodules (5) Tobacco abuse Current Visit: Yes Status: Chronic Assessment and plan: Continue nicotine transdermal patch, counseled about cessation (6) IV drug abuse Current Visit: Yes Status: Chronic Assessment and plan: Counseled about cessation (7) Hepatitis C Current Visit: Yes Status: Chronic Assessment and plan: Follow-up as outpatient Qualifiers: Viral hepatitis chronicity: chronic Hepatic coma status: without hepatic coma Qualified Code(s): B18.2 - Chronic viral hepatitis C - Time Spent With Patient 25 - 35 minutes - Subjective Interval history: Patient awake and alert. Not in any distress. Denies any chest pain or shortness of breath. Tolerating oral diet well. No fever. Hemodynamically stable. Complains of mild cough intermittently. Complains of persistent pain and swelling over right hand. States it has improved however. patient also mentions he is still unable to flex at the MCP joints. No other acute events or complaints Patient had an empyema right lung. He underwent thoracotomy and chest tube placement for drainage. Chest tubes have been removed. Transfer from the ICU. Also has septic thrombophlebitis of upper extremity. he is on Lovenox and IV ceftriaxone. - Constitutional Vitals: Temp Pulse Resp BP Pulse Ox 98.8 F 104 16 120/77 94 12/11/16 16:56 12/11/16 16:56 12/11/16 16:56 12/11/16 16:56 12/11/16 16:56 General appearance: Present: cachectic, A&O X 3, pleasant, no acute distress, answers questions appropriately - Head Head exam: Present: atraumatic - Eye Eye exam: Present: EOMI - ENT ENT exam: Present: mucous membranes moist - Neck Neck exam general surgery: Present: supple - Respiratory Respiratory exam: Present: CTAB. Absent: rales, rhonchi, wheezes, tachypnea Additional comments: Right side thoracotomy scar healing well, dressing intact, minimal drainage - Cardiovascular Cardiovascular exam: Present: RRR, +S1, +S2 - GI/Abdominal GI/Abdominal exam: Present: soft. Absent: distended, firm, guarding, rigid, tenderness - Extremities Exam Extremities exam: Present: radial pulses palpable and symmetrical. Absent: cyanotic, pedal edema Additional comments: Right hand swelling and tenderness, limited ROM of the fingers of right hand due to swelling - Neurological Exam Neurological exam: Present: alert, oriented X3, no focal deficits. Absent: facial droop, speech deficit Internal Medicine: Result - Labs CBC & Chem 7: 12/11/16 06:43 12/11/16 06:43 Labs: Short CBC 12/10/16 12/11/16 Range/Units 18:36 06:43 WBC 15.3 H 10.3 (4.3-11.1) K/mcL Hgb 11.6 L 11.0 L (12.9-16.9) g/dL Hct 36.0 L 34.4 L (37.5-50.1) % Plt Count 772 H D 662 H (140-400) K/mcL Neutrophils # 10.5 H 6.5 (1.6-8.9) K/mcL BMP 12/11/16 06:43 Sodium 131 L Potassium 4.4 D Chloride 96 L Carbon Dioxide 31 H BUN 25 Creatinine 0.69 L Glucose 101 H Calcium 9.1 - ABG Interpretation ABG results: ABG ABG pH 7.40 pH Units (7.32-7.45) 12/06/16 04:45 ABG pCO2 44 mmHg (35-45) 12/06/16 04:45 ABG pO2 61 mmHg (85-104) L 12/06/16 04:45 ABG O2 Saturation 91 % (95-98) L 12/06/16 04:45 PT/INR, D-dimer PT 11.7 Seconds (9.4-12.1) 12/06/16 17:47 Consult Discharge Plan - Plan Referrals: NONE,PCP [Primary Care Provider] - (december 10 at residency clinic with dr dial at 3:00)
[2016-12-12] MEDS: *HR* HYDROmorphone 2 MG/ML SYRINGE IVP PRN ×6 (01:40→21:54)
[2016-12-12] MEDS: Albuterol 2.5 MG/3 ML NEBULIZER IH SCH ×6 (03:57→23:41)
[2016-12-12] MEDS: *HR* OxyCODONE/APAP 5/325 TABLET PO PRN ×3 (04:01→12:39)
[2016-12-12 04:15] LABS: Basophils # 0.1 K/mcL (0.0-0.2); Basophils % 0.6 %; Eosinophils # 0.1 K/mcL (0.0-0.6); Eosinophils % 1.3 %; Hematocrit 31.6 % (37.5-50.1); Hemoglobin 10.2 g/dL (12.9-16.9); Immature Granulocytes % 1.3 % (0-4); Lymphocytes # 2.2 K/mcL (0.6-4.6); Lymphocytes % 26.5 %; Mean Corpuscular HGB Conc 32.3 g/dL (31.6-35.5); Mean Corpuscular Hemoglobin 27.4 pg (28.0-33.3); Mean Corpuscular Volume 84.9 fL (83.0-100.0); Mean Platelet Volume 8.6 fL (9.4-12.4); Monocytes # 1.3 K/mcL (0.0-1.3); Monocytes % 15.3 %; Neutrophils # 4.5 K/mcL (1.6-8.9); Platelet Count 623 K/mcL (140-400); Red Blood Count 3.72 M/mcL (4.19-5.50); Red Cell Distribution Width 14.6 % (11.5-14.5)
[2016-12-12 04:23] LABS: BUN/Creatinine Ratio 38 (6-26); Blood Urea Nitrogen 25 mg/dL (8-26); Calcium 8.8 mg/dL (8.6-10.8); Carbon Dioxide 33 mEq/L (19-29); Chloride 98 mEq/L (98-109); Glucose 103 mg/dL (70-99); Osmolality,Calculated 283 (280-300); Potassium 4.4 mEq/L (3.5-4.5); Sodium 134 mEq/L (136-145); eGFR For African Americans > 60 (> 60); eGFR For Non-African Americans > 60 (> 60)
[2016-12-12] MEDS: *HR* Enoxaparin 80 MG/0.8 ML SYRINGE SQ SCH ×2 (05:14→17:41)
--- NOTE | 2016-12-12 08:37 | Infectious Disease Progress No ---
Date of Encounter: 12/12/16 Time of Encounter: 08:35 - Assessment and Plan (1) Severe sepsis Current Visit: Yes Status: Resolved The patient had three SIRS criteria plus lactic acidosis on admission. Likely secondary to bacteremia. Improved. Tachycardia has resolved. The patient afebrile today. He continues to have leukocytosis, likely reactive due to surgery Blood cultures drawn 11/30/16 are positive 2/2 sets for GAS. Repeat blood cultures drawn 12/04/16 are NGTD. (2) Bacteremia Current Visit: Yes Status: Acute Causative organism: GAS. Source unclear: Right hand cellulitis vs. PNA vs. empyema. Blood cultures drawn 11/30/16 are positive 2/2 sets. Repeat blood cultures drawn 12/04/16 are NGTD. TTE negative for vegetations. The patient has three minor Modified Hutchison's Criteria. DC vancomycin Continue Rocephin 2 grams IV daily. Duration of treatment depends on the clinical picture. Monitor renal function and for drug toxicity and dose-adjust antibiotics. (3) Empyema lung Current Visit: Yes Status: Acute Status post Right anterior thoracotomy with drainage of empyema, decortication of the lung and culture of the pleural fluid 12/05/16. Chest tube removed . 12/10/16 chest x-ray reveals no evidence of a pneumothorax, there is still right pleural effusion with associated atelectasis in the right lung base. Increased platelike atelectasis in the left lung base. 12/03/16 thoracentesis revealed exudative fluid consistent with empyema 12/03/16 bacteria seen on gram stain but culture shows no growth to date 12/05/16 intraoperative pleural fluid cultures reveals no growth to date Pulmonology/ Dr. Levine following CT surgery/ Dr. Krueger following Encourage incentive spirometry (4) Septic embolism Current Visit: Yes Status: Acute Location: Bilateral lungs. CT of the chest revealed bilateral pulmonary nodules. Pulmonology consulted. Given bacteremia and patient's history of IVDU, likely septic emboli. Continue antibiotics as above. (5) PNA (pneumonia) Current Visit: Yes Status: Acute Location: RLL. Causative organism unclear, but possible GAS. 12/10/16 chest x-ray reveals no evidence of a pneumothorax, there is still right pleural effusion with associated atelectasis in the right lung base. Increased platelike atelectasis in the left lung base. Pulmonology following. Repeat CXR pending Continue antibiotics as above. Qualifiers: Pneumonia type: due to unspecified organism Laterality: unspecified laterality Lung location: lower lobe of lung Qualified Code(s): J18.1 - Lobar pneumonia, unspecified organism (6) Cellulitis Current Visit: Yes Status: Ruled-out Location: Right hand. Resolving. Causative organism likely GAS. CT negative for necrotizing fasciitis. Ortho evaluation appreciated - no surgical intervention required at this time. Continue antibiotics as above. Qualifiers: Site of cellulitis: extremity Site of cellulitis of extremity: upper extremity Laterality: right Qualified Code(s): L03.113 - Cellulitis of right upper limb (7) Hand pain, right Current Visit: Yes Status: Acute Secondary to right hand trauma and cellulitis. Ortho consult noted. Venous doppler studies negative. Pain management per the primary team. (8) IV drug abuse Current Visit: Yes Status: Chronic Last use 2 months ago. Known Hep C positive. HIV negative. (9) Hyponatremia Current Visit: Yes Status: Acute (10) Hypomagnesemia Current Visit: Yes Status: Resolved (11) Pleural effusion Current Visit: Yes Status: Acute 12/10/16 chest x-ray reveals no evidence of a pneumothorax, there is still right pleural effusion with associated atelectasis in the right lung base. Increased platelike atelectasis in the left lung base. - Subjective Interval history: Patient seen and examined. Postop day 7 status post Right anterior thoracotomy with drainage of empyema, decortication of the lung and culture of the pleural fluid. Chest tubes were removed yesterday and patient is sitting up in bed. Patient denies fever, chills, chest pain, shortness of breath, hemoptysis, abdominal pain, nausea, vomiting, diarrhea, or leg edema. Infect Dis PN-Objective Data - Labs CBC & Chem 7: 12/12/16 03:49 12/12/16 03:49 Labs: Laboratory Results - last 24 hr 12/12/16 12/12/16 03:49 03:49 WBC 8.2 RBC 3.72 L Hgb 10.2 L Hct 31.6 L MCV 84.9 MCH 27.4 L MCHC 32.3 RDW 14.6 H Plt Count 623 H MPV 8.6 L Immature Gran % 1.3 Seg Neutrophils % 55.0 Lymphocytes % 26.5 Monocytes % 15.3 Eosinophils % 1.3 Basophils % 0.6 Neutrophils # 4.5 Lymphocytes # 2.2 Monocytes # 1.3 Eosinophils # 0.1 Basophils # 0.1 Sodium 134 L Potassium 4.4 Chloride 98 Carbon Dioxide 33 H BUN 25 Creatinine 0.66 L Est GFR ( Amer) > 60 Est GFR (Non-Af Amer) > 60 BUN/Creatinine Ratio 38 H Glucose 103 H Calculated Osmolality 283 Calcium 8.8 Cultures: Cultures 12/05/16 19:30 Anaerobic Culture - Final Pleural Fluid No anaerobes were recovered. 12/04/16 00:47 Blood Culture - Final Peripheral Venipuncture No growth. 12/04/16 00:47 Blood Culture - Final Peripheral Venipuncture No growth. 12/05/16 19:30 Wound Culture - Final Other-Specify in Comments No growth. 12/03/16 15:00 Body Fluid Culture - Final Pleural Fluid 12/03/16 15:00 Acid Fast Stain - Final Pleural Fluid Serology 12/04/16 12/03/16 12/03/16 Range/Units 00:47 15:00 15:00 Pleural Fluid Volume 500.0 mL Pleural Appearance Cloudy A (Clear) Pleural RBC 0.002 (0.000 - 0.002) M/mcL Pleural Tot Nuc Cell 4630 H (0-1000) TNC/mcL Pleural Neutrophils 91.0 % Pleural Band Neuts Test Not Performed Pleural Eosinophils Test Not Performed Pleural Basophils Test Not Performed Pleural Lymphocytes % 7.0 % Pleural Monocytes % 2.0 % Pleural Other Cells % Test Not Performed Pleural Total Protein 3.1 (No Ref Range) g/dL Pleural LDH 1758 (No Ref Range) Units/L Pleural Glucose 13 (No Ref Range) mg/dL HIV Ag/Ab Combo Qual Nonreactive (Nonreactive) Exam - Constitutional Vitals: Temp Pulse Resp BP Pulse Ox 97.9 F 91 13 119/77 98 12/12/16 08:00 12/12/16 08:00 12/12/16 08:00 12/12/16 08:00 12/12/16 08:00 General appearance: cooperative, no acute distress, thin, no febrile, no obese - Head Head exam: Present: atraumatic, normal inspection, normocephalic - Eye Eye exam: Present: PERRL, conjuntiva pink Additional comments: no subconjuntival hemorrhages noted - ENT ENT exam: Present: mucous membranes moist, normal oropharynx - Neck Neck exam: Present: normal inspection. Absent: tenderness, thyromegaly - Respiratory Respiratory exam: Present: decreased breath sounds (RLL). Absent: rales, rhonchi Additional comments: Symmetrical expansion - Cardiovascular Cardiovascular exam: Present: RRR, +S1 - GI/Abdominal GI/Abdominal exam: Present: normal bowel sounds, soft. Absent: guarding, rebound, tenderness - Extremities Exam Extremities exam: Present: normal inspection Additional comments: no edema or erythema RUE - Neurological Exam Neurological exam: Present: alert, CN II-XII intact, oriented X3. Absent: altered - Psychiatric Psychiatric exam: Present: normal affect, normal mood - Skin Skin exam: Present: dry, intact, warm Additional comments: dressing C/D/I over previous chest tube sites Consult Discharge Plan - Plan Referrals: NONE,PCP [Primary Care Provider] - (december 10 at residency clinic with dr dial at 3:00) - Attending Attestation I examined this patient and my medical decision-making was reviewed with the Resident Physician. I agree with the documented findings, disposition and treatment plan as described except to the extent set forth below.
[2016-12-12] MEDS: Nicotine 21 MG PATCH.TD24 TD SCH (08:38)
[2016-12-12] MEDS: Sennosides/Docusate Sodium TABLET PO SCH ×2 (08:38→20:31)
[2016-12-12] MEDS: Magnesium Oxide 400 MG TABLET PO SCH ×2 (08:38→20:31)
[2016-12-12 09:03] LABS: INR 1.3; Prothrombin Time 14.2 Seconds (9.4-12.1)
--- NOTE | 2016-12-12 12:01 | Internal Med Progress Note ---
Date of Encounter: 12/12/16 Time of Encounter: 11:40 - Assessment and plan (1) Empyema Current Visit: Yes Status: Acute Assessment and plan: Right-sided empyema - secondary to septic emboli and bacteremia due to IV drug use - slowly improving Cardiothoracic surgery consult - status post right thoracotomy and decortication , Chest tube removed Continue IV Dilaudid and oral Percocet as needed for pain Chest x-ray - continues to show large right-sided pleural effusion and atelectasis Encouraged out of bed to chair and incentive spirometry, Continue IV Rocephin ID following patient - appreciate input Discharge with PO antibiotics, anticipate discharge soon (2) Septic thrombophlebitis of upper extremity Current Visit: Yes Status: Acute Assessment and plan: Cellulitis and septic thrombophlebitis of right hand - improving slowly - causative organism likely GAS CT of the hand - negative for necrotizing fasciitis Orthopedics consult - no surgical intervention at this time ID following - appreciate input Continue IV Rocephin, Lovenox 1 mg/kg twice a day (3) DVT (deep venous thrombosis) Current Visit: Yes Status: Acute Assessment and plan: Patient is noted to have septic thrombophlebitis and Acute Thrombosis of right ulnar vein Continue therapeutic dose of subcutaneous Lovenox Coumadin 5 mg daily, needs atleast 5 days overlap with Lovenox - continue Coumadin for ~ 3 months needs follow up with PCP regularly for PT/INR and Coumadin dose adjustment Right upper extremity elevation and supportive care, Pain control Qualifiers: DVT location: upper extremity Affected thrombotic vein of extremity: ulnar Chronicity: acute Laterality: right Qualified Code(s): I82.621 - Acute embolism and thrombosis of deep veins of right upper extremity (4) Septic embolism Current Visit: Yes Status: Acute Assessment and plan: Septic embolism to both lungs - continue IV antibiotics, Duoneb breathing treatment CT chest - bilateral pulmonary nodules (5) Tobacco abuse Current Visit: Yes Status: Chronic Assessment and plan: Continue nicotine patch, counseled about cessation (6) IV drug abuse Current Visit: Yes Status: Chronic Assessment and plan: Counseled about cessation (7) Hepatitis C Current Visit: Yes Status: Chronic Assessment and plan: chronic, Follow-up as outpatient Qualifiers: Viral hepatitis chronicity: chronic Hepatic coma status: without hepatic coma Qualified Code(s): B18.2 - Chronic viral hepatitis C - Time Spent With Patient 25 - 35 minutes - Subjective Interval history: Patient awake and alert. Not in any distress. Denies any chest pain or shortness of breath. Tolerating oral diet well. No fever. Hemodynamically stable. Complains of mild cough intermittently. Complains of mild pain and swelling over right hand. States symptoms have improved. He is still unable to flex at the MCP joints. No other acute events or complaints. Patient had an empyema right lung. He underwent thoracotomy and chest tube placement for drainage. Chest tubes have been removed. Also has septic thrombophlebitis of upper extremity. He is on Lovenox and IV ceftriaxone. - Constitutional Vitals: Temp Pulse Resp BP Pulse Ox 98.7 F 98 16 129/65 94 12/12/16 11:35 12/12/16 11:35 12/12/16 11:35 12/12/16 11:35 12/12/16 11:35 General appearance: Present: cachectic, A&O X 3, pleasant, no acute distress, answers questions appropriately - Head Head exam: Present: atraumatic - Eye Eye exam: Present: EOMI - ENT ENT exam: Present: mucous membranes moist - Neck Neck exam general surgery: Present: supple - Respiratory Respiratory exam: Present: CTAB. Absent: rhonchi, wheezes, tachypnea Additional comments: Right side thoracotomy scar healing well, dressing intact, minimal drainage - Cardiovascular Cardiovascular exam: Present: RRR, +S1, +S2 - GI/Abdominal GI/Abdominal exam: Present: soft. Absent: distended, firm, guarding, tenderness - Extremities Exam Extremities exam: Present: radial pulses palpable and symmetrical. Absent: cyanotic, pedal edema Additional comments: Right hand swelling and tenderness improving, limited ROM of the fingers of right hand due to swelling - Neurological Exam Neurological exam: Present: alert, oriented X3, no focal deficits. Absent: facial droop, speech deficit Internal Medicine: Result - Labs CBC & Chem 7: 12/12/16 03:49 12/12/16 03:49 Labs: Short CBC 12/12/16 Range/Units 03:49 WBC 8.2 (4.3-11.1) K/mcL Hgb 10.2 L (12.9-16.9) g/dL Hct 31.6 L (37.5-50.1) % Plt Count 623 H (140-400) K/mcL Neutrophils # 4.5 (1.6-8.9) K/mcL BMP 12/12/16 03:49 Sodium 134 L Potassium 4.4 Chloride 98 Carbon Dioxide 33 H BUN 25 Creatinine 0.66 L Glucose 103 H Calcium 8.8 - ABG Interpretation ABG results: ABG ABG pH 7.40 pH Units (7.32-7.45) 12/06/16 04:45 ABG pCO2 44 mmHg (35-45) 12/06/16 04:45 ABG pO2 61 mmHg (85-104) L 12/06/16 04:45 ABG O2 Saturation 91 % (95-98) L 12/06/16 04:45 PT/INR, D-dimer PT 14.2 Seconds (9.4-12.1) H 12/12/16 08:29 Consult Discharge Plan - Plan Referrals: NONE,PCP [Primary Care Provider] - (december 10 at residency clinic with dr dial at 3:00)
[2016-12-12] MEDS ORDERED: *HR* Warfarin 5 MG TABLET PO SCH (18:00)
[2016-12-13] MEDS: *HR* HYDROmorphone 2 MG/ML SYRINGE IVP PRN ×4 (01:18→10:05)
[2016-12-13] MEDS: Albuterol 2.5 MG/3 ML NEBULIZER IH SCH ×6 (03:28→23:32)
[2016-12-13 03:41] LABS: INR 1.2; Prothrombin Time 13.3 Seconds (9.4-12.1)
[2016-12-13] MEDS: *HR* Enoxaparin 80 MG/0.8 ML SYRINGE SQ SCH (06:24)
--- NOTE | 2016-12-13 08:22 | Infectious Disease Progress No ---
Date of Encounter: 12/13/16 Time of Encounter: 08:21 - Assessment and Plan (1) Severe sepsis Current Visit: Yes Status: Resolved The patient had three SIRS criteria plus lactic acidosis on admission. Likely secondary to bacteremia. Improved. Tachycardia has resolved. The patient afebrile today. Blood cultures drawn 11/30/16 are positive 2/2 sets for GAS. Repeat blood cultures drawn 12/04/16 are NGTD. (2) Bacteremia Current Visit: Yes Status: Acute Causative organism: GAS. Source unclear: Right hand cellulitis vs. PNA vs. empyema. Blood cultures drawn 11/30/16 are positive 2/2 sets. Repeat blood cultures drawn 12/04/16 are NGTD. TTE negative for vegetations. The patient has three minor Modified Hutchison's Criteria. Continue Rocephin 2 grams IV daily. Duration of treatment depends on the clinical picture. Monitor renal function and for drug toxicity and dose-adjust antibiotics. (3) Empyema lung Current Visit: Yes Status: Acute Status post Right anterior thoracotomy with drainage of empyema, decortication of the lung and culture of the pleural fluid 12/05/16. Chest tube removed . 12/10/16 chest x-ray reveals no evidence of a pneumothorax, there is still right pleural effusion with associated atelectasis in the right lung base. Increased platelike atelectasis in the left lung base. 12/03/16 thoracentesis revealed exudative fluid consistent with empyema 12/03/16 bacteria seen on gram stain but culture shows no growth to date 12/05/16 intraoperative pleural fluid cultures reveals no growth to date Pulmonology/ Dr. Levine following CT surgery/ Dr. Krueger following Encourage incentive spirometry (4) Septic embolism Current Visit: Yes Status: Acute Location: Bilateral lungs. CT of the chest revealed bilateral pulmonary nodules. Pulmonology consulted. Given bacteremia and patient's history of IVDU, likely septic emboli. Continue antibiotics as above. (5) PNA (pneumonia) Current Visit: Yes Status: Acute Location: RLL. Causative organism unclear, but possible GAS. 12/12/16 chest x-ray reveals Unchanged right pleural effusion and underlying right lower lobe atelectasis and/or pneumonia. Unchanged subsegmental atelectasis in the left lung base. Pulmonology following. Continue antibiotics as above. Qualifiers: Pneumonia type: due to unspecified organism Laterality: unspecified laterality Lung location: lower lobe of lung Qualified Code(s): J18.1 - Lobar pneumonia, unspecified organism (6) Cellulitis Current Visit: Yes Status: Ruled-out Location: Right hand. Resolving. Causative organism likely GAS. CT negative for necrotizing fasciitis. Ortho evaluation appreciated - no surgical intervention required at this time. Continue antibiotics as above. Qualifiers: Site of cellulitis: extremity Site of cellulitis of extremity: upper extremity Laterality: right Qualified Code(s): L03.113 - Cellulitis of right upper limb (7) Hand pain, right Current Visit: Yes Status: Acute Secondary to right hand trauma and cellulitis. Ortho consult noted. Venous doppler studies negative. Pain management per the primary team. (8) IV drug abuse Current Visit: Yes Status: Chronic Last use 2 months ago. Known Hep C positive. HIV negative. (9) Hyponatremia Current Visit: Yes Status: Acute (10) Hypomagnesemia Current Visit: Yes Status: Resolved (11) Pleural effusion Current Visit: Yes Status: Acute 12/12/16 chest x-ray reveals Unchanged right pleural effusion and underlying right lower lobe atelectasis and/or pneumonia. Unchanged subsegmental atelectasis in the left lung base. - Subjective Interval history: Patient seen and examined. Postop day 8 status post Right anterior thoracotomy with drainage of empyema, decortication of the lung and culture of the pleural fluid 12/05/16. Patient denies fever, chills, chest pain, shortness of breath, hemoptysis, abdominal pain, nausea, vomiting, diarrhea, or leg edema. Infect Dis PN-Objective Data - Labs CBC & Chem 7: 12/13/16 08:45 12/13/16 08:45 Labs: Laboratory Results - last 24 hr 12/10/16 12/12/16 12/13/16 08:29 08:29 03:32 PT 14.2 H 13.3 H INR 1.3 1.2 Heparin-PF4 IgG Ab 0.080 Cultures: Cultures 12/05/16 19:30 Anaerobic Culture - Final Pleural Fluid No anaerobes were recovered. 12/04/16 00:47 Blood Culture - Final Peripheral Venipuncture No growth. 12/04/16 00:47 Blood Culture - Final Peripheral Venipuncture No growth. 12/05/16 19:30 Wound Culture - Final Other-Specify in Comments No growth. 12/03/16 15:00 Body Fluid Culture - Final Pleural Fluid 12/03/16 15:00 Acid Fast Stain - Final Pleural Fluid Serology 12/04/16 12/03/16 12/03/16 Range/Units 00:47 15:00 15:00 Pleural Fluid Volume 500.0 mL Pleural Appearance Cloudy A (Clear) Pleural RBC 0.002 (0.000 - 0.002) M/mcL Pleural Tot Nuc Cell 4630 H (0-1000) TNC/mcL Pleural Neutrophils 91.0 % Pleural Band Neuts Test Not Performed Pleural Eosinophils Test Not Performed Pleural Basophils Test Not Performed Pleural Lymphocytes % 7.0 % Pleural Monocytes % 2.0 % Pleural Other Cells % Test Not Performed Pleural Total Protein 3.1 (No Ref Range) g/dL Pleural LDH 1758 (No Ref Range) Units/L Pleural Glucose 13 (No Ref Range) mg/dL HIV Ag/Ab Combo Qual Nonreactive (Nonreactive) - Impressions Impressions Chest X-Ray 12/12/16 15:30 IMPRESSION: 1. Unchanged right pleural effusion and underlying right lower lobe atelectasis and/or pneumonia. 2. Unchanged subsegmental atelectasis in the left lung base. D/ / Brenden Venegas MD / Brenden Venegas MD Interpreting Provider: Brenden Venegas MD Exam - Constitutional Vitals: Temp Pulse Resp BP Pulse Ox 98.5 F 58 18 139/84 95 12/13/16 06:38 12/13/16 06:38 12/13/16 07:43 12/13/16 06:38 12/13/16 07:43 General appearance: cooperative, no acute distress, thin, no febrile - Head Head exam: Present: atraumatic, normal inspection, normocephalic - Eye Eye exam: Present: PERRL, conjuntiva pink Additional comments: no subconjuntival hemorrhages noted - ENT ENT exam: Present: mucous membranes moist, normal oropharynx - Neck Neck exam: Present: full ROM, normal inspection. Absent: tenderness, thyromegaly - Respiratory Respiratory exam: Present: decreased breath sounds (Right lower lobe), CTAB. Absent: rales, rhonchi Additional comments: Symmetrical expansion - Cardiovascular Cardiovascular exam: Present: RRR, +S1, +S2 - GI/Abdominal GI/Abdominal exam: Present: normal bowel sounds, soft. Absent: guarding, rebound - Extremities Exam Extremities exam: Present: normal inspection Additional comments: no edema or erythema RUE - Neurological Exam Neurological exam: Present: alert, oriented X3. Absent: altered, motor sensory deficit - Psychiatric Psychiatric exam: Present: normal affect, normal mood - Skin Additional comments: dressing C/D/I over previous chest tube sites Consult Discharge Plan - Plan Instructions: Pneumonia (DC) Referrals: NONE,PCP [Primary Care Provider] - (december 10 at residency clinic with dr dial at 3:00) - Attending Attestation I examined this patient and my medical decision-making was reviewed with the Resident Physician. I agree with the documented findings, disposition and treatment plan as described except to the extent set forth below.
[2016-12-13] MEDS: Magnesium Oxide 400 MG TABLET PO SCH ×2 (08:49→23:08)
[2016-12-13] MEDS: *HR* OxyCODONE/APAP 5/325 TABLET PO PRN (08:50)
[2016-12-13 08:52] LABS: Basophils % 0.5 %; Eosinophils # 0.1 K/mcL (0.0-0.6); Hematocrit 33.4 % (37.5-50.1); Hemoglobin 10.5 g/dL (12.9-16.9); Immature Granulocytes % 0.6 % (0-4); Immature Platelets 0.6 % (1.1-6.1); Lymphocytes # 1.9 K/mcL (0.6-4.6); Lymphocytes % 22.8 %; Mean Corpuscular HGB Conc 31.4 g/dL (31.6-35.5); Mean Corpuscular Hemoglobin 27.1 pg (28.0-33.3); Mean Corpuscular Volume 86.3 fL (83.0-100.0); Mean Platelet Volume 8.1 fL (9.4-12.4); Monocytes # 0.9 K/mcL (0.0-1.3); Monocytes % 11.1 %; Neutrophils # 5.2 K/mcL (1.6-8.9); Platelet Count 745 K/mcL (140-400); Red Blood Count 3.87 M/mcL (4.19-5.50); Red Cell Distribution Width 14.5 % (11.5-14.5)
[2016-12-13 09:05] LABS: BUN/Creatinine Ratio 26 (6-26); Blood Urea Nitrogen 18 mg/dL (8-26); Calcium 9.3 mg/dL (8.6-10.8); Carbon Dioxide 34 mEq/L (19-29); Chloride 96 mEq/L (98-109); Glucose 104 mg/dL (70-99); Magnesium 1.4 mg/dL (1.6-2.6); Osmolality,Calculated 278 (280-300); Phosphorous 3.3 mg/dL (2.3-4.7); Potassium 4.2 mEq/L (3.5-4.5); Sodium 133 mEq/L (136-145); eGFR For African Americans > 60 (> 60); eGFR For Non-African Americans > 60 (> 60)
[2016-12-13] MEDS: Sennosides/Docusate Sodium TABLET PO SCH ×2 (10:06→20:23)
[2016-12-13] MEDS: Nicotine 21 MG PATCH.TD24 TD SCH (10:06)
[2016-12-13] MEDS ORDERED: *HR* OxyCODONE/APAP 7.5/325 TABLET PO PRN (11:59)
--- NOTE | 2016-12-13 12:09 | Internal Med Progress Note ---
Date of Encounter: 12/13/16 Time of Encounter: 12:07 - Assessment and plan (1) Septic thrombophlebitis of upper extremity Current Visit: Yes Status: Acute Assessment and plan: Cellulitis and septic thrombophlebitis of right hand - improving slowly - causative organism likely GAS CT of the hand - negative for narcotizing fascitis Orthopedics consult - no surgical intervention at this time ID input appreciated Continue IV Rocephin, Lovenox 1 mg/kg twice a day (2) Empyema Current Visit: Yes Status: Acute Assessment and plan: Right-sided empyema - secondary to septic emboli and bacteremia due to IV drug use - slowly improving Cardiothoracic surgery consult - status post right thoracotomy and decortication , Chest tube removed (12/11/16) Hydrocodone/Acetaminophen prn pain Encouraged out of bed to chair and incentive spirometry, Continue IV Rocephin ID following patient - appreciate input Discharge with PO antibiotics Discharge pending INR within therapeutic range (3) DVT (deep venous thrombosis) Current Visit: Yes Status: Acute Assessment and plan: Patient is noted to have septic thrombophlebitis and Acute Thrombosis of right ulnar vein Continue therapeutic dose of subcutaneous Lovenox continue lovenox SQ (1mg/kg) q12h with coumadin pharmacy to dose coumadin goal INR: 2-3 d/c pending achievement of therapeutic INR Right upper extremity elevation and supportive care, Pain control Qualifiers: DVT location: upper extremity Affected thrombotic vein of extremity: ulnar Chronicity: acute Laterality: right Qualified Code(s): I82.621 - Acute embolism and thrombosis of deep veins of right upper extremity (4) Hepatitis C Current Visit: Yes Status: Chronic Assessment and plan: chronic, Follow-up as outpatient Qualifiers: Viral hepatitis chronicity: chronic Hepatic coma status: without hepatic coma Qualified Code(s): B18.2 - Chronic viral hepatitis C (5) Hypomagnesemia Current Visit: Yes Status: Resolved Assessment and plan: Mg supplemented continue to monitor electrolytes and replace as needed (6) IV drug abuse Current Visit: Yes Status: Chronic Assessment and plan: Counseled about cessation (7) Septic embolism Current Visit: Yes Status: Acute Assessment and plan: Septic embolism to both lungs - continue IV antibiotics, Duoneb breathing treatment CT chest - bilateral pulmonary nodules continue abx and anticoagulation (8) Tobacco abuse Current Visit: Yes Status: Chronic Assessment and plan: smoking cessation counseling provided pt considering quitting refused nicotine supplementation therapy - Subjective Interval history: Pt seen and examined at bedside. Ambulating well around the room and reports of feeling significantly better. Noted to have significant swelling of right hand but states this is improved compared to a few days ago. No overnight issues reported. Pt educated about narcotic abuse and is in agreement with discontinuing dilauid and using PO medications for pain control if needed at this time. - Constitutional Vitals: Temp Pulse Resp BP Pulse Ox 98.3 F 105 18 154/91 97 12/13/16 10:00 12/13/16 10:00 12/13/16 11:01 12/13/16 10:00 12/13/16 11:01 General appearance: Present: cachectic, A&O X 3, pleasant, no acute distress, answers questions appropriately - Head Head exam: Present: atraumatic, normocephalic - Eye Eye exam: Present: conjuntiva pink, sclera anicteric - Respiratory Respiratory exam: Absent: respiratory distress, wheezes (coarse breath sounds on left) - Cardiovascular Cardiovascular exam: Present: RRR, +S1, +S2. Absent: diastolic murmur, gallop, rubs, systolic murmur Additional comments: right side steristrips intact, dressing intact-s/p chest tube removal - GI/Abdominal GI/Abdominal exam: Present: normal bowel sounds, soft, no peritoneal signs. Absent: distended, tenderness - Extremities Exam Extremities exam: Present: warm, radial pulses palpable and symmetrical. Absent : calf tenderness, cyanotic, pedal edema Additional comments: right hand edema - Neurological Exam Neurological exam: Present: alert, oriented X3 - Psychiatric Psychiatric exam: Present: normal affect, normal mood Internal Medicine: Result - Labs CBC & Chem 7: 12/13/16 08:45 12/13/16 08:45 Labs: Short CBC 12/13/16 Range/Units 08:45 WBC 8.2 (4.3-11.1) K/mcL Hgb 10.5 L (12.9-16.9) g/dL Hct 33.4 L (37.5-50.1) % Plt Count 745 H (140-400) K/mcL Neutrophils # 5.2 (1.6-8.9) K/mcL BMP 12/13/16 08:45 Sodium 133 L Potassium 4.2 Chloride 96 L Carbon Dioxide 34 H BUN 18 Creatinine 0.69 L Glucose 104 H Calcium 9.3 - ABG Interpretation ABG results: ABG ABG pH 7.40 pH Units (7.32-7.45) 12/06/16 04:45 ABG pCO2 44 mmHg (35-45) 12/06/16 04:45 ABG pO2 61 mmHg (85-104) L 12/06/16 04:45 ABG O2 Saturation 91 % (95-98) L 12/06/16 04:45 PT/INR, D-dimer PT 13.3 Seconds (9.4-12.1) H 12/13/16 03:32 - Impressions Impressions Chest X-Ray 12/12/16 15:30 IMPRESSION: 1. Unchanged right pleural effusion and underlying right lower lobe atelectasis and/or pneumonia. 2. Unchanged subsegmental atelectasis in the left lung base. D/ / Brenden Venegas MD / Brenden Venegas MD Interpreting Provider: Brenden Venegas MD Consult Discharge Plan - Plan Instructions: Pneumonia (DC) Referrals: NONE,PCP [Primary Care Provider] - (december 10 at residency clinic with dr dial at 3:00)
[2016-12-13] MEDS ORDERED: Magnesium Sulfate 2 GM in D5% in Water 100 ML IVPB ONE (14:10)
[2016-12-13] MEDS: Acetaminophen 325 MG TABLET PO PRN ×2 (15:08→22:57)
[2016-12-13] MEDS: *HR* OxyCODONE/APAP 7.5/325 TABLET PO PRN ×2 (15:09→21:47)
[2016-12-13] MEDS: *HR* Enoxaparin 60 MG/0.6 ML SYRINGE SQ SCH (17:48)
[2016-12-13] MEDS ORDERED: Warfarin perPT PO PRN (18:00)
[2016-12-13] MEDS ORDERED: *HR* Warfarin 7.5 MG TABLET PO ONE (18:00)
[2016-12-14] MEDS: Albuterol 2.5 MG/3 ML NEBULIZER IH SCH ×3 (03:29→11:39)
[2016-12-14 04:03] LABS: Basophils % 0.6 %; Eosinophils # 0.1 K/mcL (0.0-0.6); Eosinophils % 1.5 %; Hematocrit 28.8 % (37.5-50.1); Hemoglobin 9.1 g/dL (12.9-16.9); Immature Granulocytes % 0.5 % (0-4); Lymphocytes # 1.9 K/mcL (0.6-4.6); Lymphocytes % 31.2 %; Mean Corpuscular HGB Conc 31.6 g/dL (31.6-35.5); Mean Corpuscular Hemoglobin 27.3 pg (28.0-33.3); Mean Corpuscular Volume 86.5 fL (83.0-100.0); Mean Platelet Volume 8.6 fL (9.4-12.4); Monocytes # 0.8 K/mcL (0.0-1.3); Monocytes % 13.4 %; Neutrophils # 3.3 K/mcL (1.6-8.9); Platelet Count 505 K/mcL (140-400); Red Blood Count 3.33 M/mcL (4.19-5.50); Red Cell Distribution Width 14.4 % (11.5-14.5); Segmented Neutrophils % 52.8 %
[2016-12-14 04:12] LABS: INR 1.4
[2016-12-14 04:15] LABS: BUN/Creatinine Ratio 24 (6-26); Blood Urea Nitrogen 16 mg/dL (8-26); Calcium 8.5 mg/dL (8.6-10.8); Carbon Dioxide 29 mEq/L (19-29); Chloride 101 mEq/L (98-109); Glucose 99 mg/dL (70-99); Magnesium 1.7 mg/dL (1.6-2.6); Osmolality,Calculated 279 (280-300); Phosphorous 3.3 mg/dL (2.3-4.7); Potassium 4.2 mEq/L (3.5-4.5); Sodium 134 mEq/L (136-145); eGFR For African Americans > 60 (> 60); eGFR For Non-African Americans > 60 (> 60)
[2016-12-14] MEDS: *HR* Enoxaparin 60 MG/0.6 ML SYRINGE SQ SCH ×2 (05:51→17:28)
[2016-12-14] MEDS: *HR* OxyCODONE/APAP 7.5/325 TABLET PO PRN (05:51)
[2016-12-14] MEDS: Acetaminophen 325 MG TABLET PO PRN ×2 (08:48→20:39)
[2016-12-14] MEDS: Magnesium Oxide 400 MG TABLET PO SCH ×2 (08:49→20:39)
[2016-12-14] MEDS: Nicotine 21 MG PATCH.TD24 TD SCH (08:49)
[2016-12-14] MEDS: Sennosides/Docusate Sodium TABLET PO SCH ×2 (08:49→20:40)
--- NOTE | 2016-12-14 09:09 | Infectious Disease Progress No ---
Date of Encounter: 12/14/16 Time of Encounter: 09:09 - Assessment and Plan (1) Bacteremia Current Visit: Yes Status: Acute Causative organism: GAS. Source unclear: Right hand cellulitis vs. PNA vs. empyema. Blood cultures drawn 11/30/16 are positive 2/2 sets. Repeat blood cultures drawn 12/04/16 are NGTD. TTE negative for vegetations. The patient has three minor Modified Hutchison's Criteria. Continue Rocephin 2 grams IV daily. Duration of treatment depends on the clinical picture. Monitor renal function and for drug toxicity and dose-adjust antibiotics. (2) Severe sepsis Current Visit: Yes Status: Resolved The patient had three SIRS criteria plus lactic acidosis on admission. Likely secondary to bacteremia. Improved. Tachycardia has resolved. The patient afebrile today. Blood cultures drawn 11/30/16 are positive 2/2 sets for GAS. Repeat blood cultures drawn 12/04/16 are NGTD. (3) Empyema lung Current Visit: Yes Status: Acute Status post Right anterior thoracotomy with drainage of empyema, decortication of the lung and culture of the pleural fluid 12/05/16. Chest tube removed . 12/10/16 chest x-ray reveals no evidence of a pneumothorax, there is still right pleural effusion with associated atelectasis in the right lung base. Increased platelike atelectasis in the left lung base. 12/03/16 thoracentesis revealed exudative fluid consistent with empyema 12/03/16 bacteria seen on gram stain but culture shows no growth to date 12/05/16 intraoperative pleural fluid cultures reveals no growth to date Pulmonology/ Dr. Levine following CT surgery/ Dr. Krueger following Encourage incentive spirometry (4) Septic embolism Current Visit: Yes Status: Acute Location: Bilateral lungs. CT of the chest revealed bilateral pulmonary nodules. Pulmonology consulted. Given bacteremia and patient's history of IVDU, likely septic emboli. Continue antibiotics as above. (5) PNA (pneumonia) Current Visit: Yes Status: Acute Location: RLL. Causative organism unclear, but possible GAS. 12/12/16 chest x-ray reveals Unchanged right pleural effusion and underlying right lower lobe atelectasis and/or pneumonia. Unchanged subsegmental atelectasis in the left lung base. Pulmonology following. Continue antibiotics as above. Qualifiers: Pneumonia type: due to unspecified organism Laterality: unspecified laterality Lung location: lower lobe of lung Qualified Code(s): J18.1 - Lobar pneumonia, unspecified organism (6) Cellulitis Current Visit: Yes Status: Ruled-out Location: Right hand. Resolving. Causative organism likely GAS. CT negative for necrotizing fasciitis. Ortho evaluation appreciated - no surgical intervention required at this time. Continue antibiotics as above. Qualifiers: Site of cellulitis: extremity Site of cellulitis of extremity: upper extremity Laterality: right Qualified Code(s): L03.113 - Cellulitis of right upper limb (7) Hand pain, right Current Visit: Yes Status: Acute Secondary to right hand trauma and cellulitis. Ortho consult noted. Venous doppler studies negative. Pain management per the primary team. (8) IV drug abuse Current Visit: Yes Status: Chronic Last use 2 months ago. Known Hep C positive. HIV negative. (9) Hyponatremia Current Visit: Yes Status: Acute (10) Hypomagnesemia Current Visit: Yes Status: Resolved (11) Pleural effusion Current Visit: Yes Status: Acute 12/12/16 chest x-ray reveals Unchanged right pleural effusion and underlying right lower lobe atelectasis and/or pneumonia. Unchanged subsegmental atelectasis in the left lung base. - Subjective Interval history: Patient seen and examined. Postop day 9 status post Right anterior thoracotomy with drainage of empyema, decortication of the lung and culture of the pleural fluid 12/05/16. Patient denies fever, chills, chest pain, shortness of breath, hemoptysis, abdominal pain, nausea, vomiting, diarrhea, or leg edema. Infect Dis PN-Objective Data - Labs CBC & Chem 7: 12/14/16 03:50 12/14/16 03:50 Labs: Laboratory Results - last 24 hr 12/14/16 12/14/16 12/14/16 03:50 03:50 03:50 WBC 6.2 RBC 3.33 L Hgb 9.1 L Hct 28.8 L MCV 86.5 MCH 27.3 L MCHC 31.6 RDW 14.4 Plt Count 505 H MPV 8.6 L Immature Gran % 0.5 Seg Neutrophils % 52.8 Lymphocytes % 31.2 Monocytes % 13.4 Eosinophils % 1.5 Basophils % 0.6 Neutrophils # 3.3 Lymphocytes # 1.9 Monocytes # 0.8 Eosinophils # 0.1 Basophils # 0.0 PT 15.0 H INR 1.4 Sodium 134 L Potassium 4.2 Chloride 101 Carbon Dioxide 29 BUN 16 Creatinine 0.67 L Est GFR ( Amer) > 60 Est GFR (Non-Af Amer) > 60 BUN/Creatinine Ratio 24 Glucose 99 Calculated Osmolality 279 L Calcium 8.5 L Phosphorus 3.3 Magnesium 1.7 Cultures: Cultures 12/05/16 19:30 Anaerobic Culture - Final Pleural Fluid No anaerobes were recovered. 12/04/16 00:47 Blood Culture - Final Peripheral Venipuncture No growth. 12/04/16 00:47 Blood Culture - Final Peripheral Venipuncture No growth. 12/05/16 19:30 Wound Culture - Final Other-Specify in Comments No growth. 12/03/16 15:00 Body Fluid Culture - Final Pleural Fluid 12/03/16 15:00 Acid Fast Stain - Final Pleural Fluid Serology 12/04/16 12/03/16 12/03/16 Range/Units 00:47 15:00 15:00 Pleural Fluid Volume 500.0 mL Pleural Appearance Cloudy A (Clear) Pleural RBC 0.002 (0.000 - 0.002) M/mcL Pleural Tot Nuc Cell 4630 H (0-1000) TNC/mcL Pleural Neutrophils 91.0 % Pleural Band Neuts Test Not Performed Pleural Eosinophils Test Not Performed Pleural Basophils Test Not Performed Pleural Lymphocytes % 7.0 % Pleural Monocytes % 2.0 % Pleural Other Cells % Test Not Performed Pleural Total Protein 3.1 (No Ref Range) g/dL Pleural LDH 1758 (No Ref Range) Units/L Pleural Glucose 13 (No Ref Range) mg/dL HIV Ag/Ab Combo Qual Nonreactive (Nonreactive) Exam - Constitutional Vitals: Temp Pulse Resp BP Pulse Ox 99.1 F 75 18 133/87 96 12/14/16 06:34 12/14/16 06:34 12/14/16 07:38 12/14/16 06:34 12/14/16 07:38 General appearance: cooperative, no acute distress, thin, no febrile - Head Head exam: Present: atraumatic, normal inspection, normocephalic - Eye Eye exam: Present: PERRL, conjuntiva pink Additional comments: no subconjuntival hemorrhages noted - ENT ENT exam: Present: mucous membranes moist, normal oropharynx - Neck Neck exam: Present: full ROM, normal inspection - Respiratory Respiratory exam: Present: decreased breath sounds (Right lower lobe), CTAB - Cardiovascular Cardiovascular exam: Present: RRR, +S1, +S2 - GI/Abdominal GI/Abdominal exam: Present: normal bowel sounds, soft. Absent: guarding, rebound - Extremities Exam Extremities exam: Present: normal inspection. Absent: tenderness Additional comments: no edema or erythema RUE - Neurological Exam Neurological exam: Present: alert, oriented X3. Absent: altered - Psychiatric Psychiatric exam: Present: normal affect, normal mood - Skin Skin exam: Present: dry, warm Additional comments: dressing C/D/I over previous chest tube sites Consult Discharge Plan - Plan Instructions: Pneumonia (DC) Referrals: NONE,PCP [Primary Care Provider] - (december 10 at residency clinic with dr dial at 3:00) - Attending Attestation I examined this patient and my medical decision-making was reviewed with the Resident Physician. I agree with the documented findings, disposition and treatment plan as described except to the extent set forth below. continues to have fever. source not clear get cxr and get blood cultures x 2 stat continue rocephin duration of treatment depends on clinical picture
--- NOTE | 2016-12-14 11:42 | Internal Med Progress Note ---
Date of Encounter: 12/14/16 Time of Encounter: 11:36 - Assessment and plan (1) Septic thrombophlebitis of upper extremity Current Visit: Yes Status: Acute Assessment and plan: Cellulitis and septic thrombophlebitis of right hand - improving slowly - causative organism likely GAS CT of the hand - negative for narcotizing fascitis Orthopedics consult - no surgical intervention at this time ID input appreciated Continue IV Rocephin, Lovenox 1 mg/kg twice a day (2) Empyema Current Visit: Yes Status: Acute Assessment and plan: Right-sided empyema - secondary to septic emboli and bacteremia due to IV drug use - slowly improving Cardiothoracic surgery consult - status post right thoracotomy and decortication , Chest tube removed (12/11/16) Hydrocodone/Acetaminophen prn pain Encouraged out of bed to chair and incentive spirometry, Continue IV Rocephin ID following patient - appreciate input Discharge with PO antibiotics Discharge pending INR within therapeutic range Daily dressing changes at the site of chest tube (3) DVT (deep venous thrombosis) Current Visit: Yes Status: Acute Assessment and plan: Patient is noted to have septic thrombophlebitis and Acute Thrombosis of right ulnar vein Continue therapeutic dose of subcutaneous Lovenox continue lovenox SQ (1mg/kg) q12h with coumadin pharmacy to dose coumadin goal INR: 2-3 d/c pending achievement of therapeutic INR Right upper extremity elevation and supportive care, Pain control Qualifiers: DVT location: upper extremity Affected thrombotic vein of extremity: ulnar Chronicity: acute Laterality: right Qualified Code(s): I82.621 - Acute embolism and thrombosis of deep veins of right upper extremity (4) Hepatitis C Current Visit: Yes Status: Chronic Assessment and plan: chronic, Follow-up as outpatient Qualifiers: Viral hepatitis chronicity: chronic Hepatic coma status: without hepatic coma Qualified Code(s): B18.2 - Chronic viral hepatitis C (5) Hypomagnesemia Current Visit: Yes Status: Resolved Assessment and plan: Resolved continue to monitor electrolytes and replace as needed (6) IV drug abuse Current Visit: Yes Status: Chronic Assessment and plan: Counseled about cessation (7) Septic embolism Current Visit: Yes Status: Acute Assessment and plan: Septic embolism to both lungs - continue IV antibiotics, Duoneb breathing treatment CT chest - bilateral pulmonary nodules continue abx and anticoagulation (8) Tobacco abuse Current Visit: Yes Status: Chronic Assessment and plan: smoking cessation counseling provided pt considering quitting refused nicotine supplementation therapy - Subjective Interval history: Pt seen and examined at bedside. Resting in bed and states he is not happy about taking away the Dilaudid completely. Extensive narcotic dependence counseling was provided to the patient. Pt willing to adhere to PO pain medications. Will increase dose of current PO pain medication. If patient remains in painful distress, will adjust pain medications accordingly. No overnight issues were reported. - Constitutional Vitals: Temp Pulse Resp BP Pulse Ox 98.2 F 100 15 140/102 95 12/14/16 10:52 12/14/16 10:52 12/14/16 10:52 12/14/16 10:52 12/14/16 10:52 General appearance: Present: cachectic, A&O X 3, pleasant, no acute distress, answers questions appropriately - Head Head exam: Present: atraumatic, normocephalic - Eye Eye exam: Present: conjuntiva pink, sclera anicteric - Respiratory Respiratory exam: Present: CTAB. Absent: respiratory distress, wheezes - Cardiovascular Cardiovascular exam: Present: RRR, +S1, +S2. Absent: diastolic murmur, gallop, rubs, systolic murmur Additional comments: right lateral chest wall steristrips intact, dressing intact-s/p chest tube removal - GI/Abdominal GI/Abdominal exam: Present: normal bowel sounds, soft, no peritoneal signs. Absent: distended, tenderness - Extremities Exam Extremities exam: Present: warm, radial pulses palpable and symmetrical. Absent : calf tenderness, pedal edema Additional comments: right hand edema, no erythema - Neurological Exam Neurological exam: Present: alert, oriented X3 - Psychiatric Psychiatric exam: Present: normal affect, normal mood Internal Medicine: Result - Labs CBC & Chem 7: 12/14/16 03:50 12/14/16 03:50 Labs: Short CBC 12/14/16 Range/Units 03:50 WBC 6.2 (4.3-11.1) K/mcL Hgb 9.1 L (12.9-16.9) g/dL Hct 28.8 L (37.5-50.1) % Plt Count 505 H (140-400) K/mcL Neutrophils # 3.3 (1.6-8.9) K/mcL BMP 12/14/16 03:50 Sodium 134 L Potassium 4.2 Chloride 101 Carbon Dioxide 29 BUN 16 Creatinine 0.67 L Glucose 99 Calcium 8.5 L - ABG Interpretation ABG results: ABG ABG pH 7.40 pH Units (7.32-7.45) 12/06/16 04:45 ABG pCO2 44 mmHg (35-45) 12/06/16 04:45 ABG pO2 61 mmHg (85-104) L 12/06/16 04:45 ABG O2 Saturation 91 % (95-98) L 12/06/16 04:45 PT/INR, D-dimer PT 15.0 Seconds (9.4-12.1) H 12/14/16 03:50 Consult Discharge Plan - Plan Instructions: Pneumonia (DC) Referrals: NONE,PCP [Primary Care Provider] - (december 10 at residency clinic with dr dial at 3:00)
[2016-12-14] MEDS: *HR* OxyCODONE/APAP 10/325 TABLET PO PRN ×2 (12:05→17:27)
[2016-12-14] MEDS ORDERED: Albuterol 2.5 MG/3 ML NEBULIZER IH PRN (14:06)
[2016-12-14] MEDS ORDERED: *HR* Warfarin 7.5 MG TABLET PO ONE (18:00)
[2016-12-15] MEDS: *HR* OxyCODONE/APAP 10/325 TABLET PO PRN ×4 (00:32→19:59)
[2016-12-15 05:17] LABS: Basophils % 0.7 %; Eosinophils # 0.1 K/mcL (0.0-0.6); Eosinophils % 1.5 %; Hematocrit 29.8 % (37.5-50.1); Hemoglobin 9.4 g/dL (12.9-16.9); Immature Granulocytes % 0.4 % (0-4); Immature Platelets 0.6 % (1.1-6.1); Lymphocytes # 1.6 K/mcL (0.6-4.6); Lymphocytes % 28.5 %; Mean Corpuscular HGB Conc 31.5 g/dL (31.6-35.5); Mean Corpuscular Hemoglobin 27.2 pg (28.0-33.3); Mean Corpuscular Volume 86.4 fL (83.0-100.0); Mean Platelet Volume 8.5 fL (9.4-12.4); Monocytes # 0.9 K/mcL (0.0-1.3); Monocytes % 15.5 %; Neutrophils # 2.9 K/mcL (1.6-8.9); Platelet Count 560 K/mcL (140-400); Red Blood Count 3.45 M/mcL (4.19-5.50); Red Cell Distribution Width 14.2 % (11.5-14.5); Segmented Neutrophils % 53.4 %
[2016-12-15] MEDS: Acetaminophen 325 MG TABLET PO PRN (05:19)
[2016-12-15 05:24] LABS: INR 1.7; Prothrombin Time 18.9 Seconds (9.4-12.1)
[2016-12-15 05:28] LABS: BUN/Creatinine Ratio 27 (6-26); Blood Urea Nitrogen 19 mg/dL (8-26); Calcium 8.8 mg/dL (8.6-10.8); Carbon Dioxide 33 mEq/L (19-29); Chloride 100 mEq/L (98-109); Glucose 98 mg/dL (70-99); Magnesium 1.4 mg/dL (1.6-2.6); Osmolality,Calculated 282 (280-300); Phosphorous 3.1 mg/dL (2.3-4.7); Potassium 4.2 mEq/L (3.5-4.5); Sodium 135 mEq/L (136-145); eGFR For African Americans > 60 (> 60); eGFR For Non-African Americans > 60 (> 60)
[2016-12-15 05:49] LABS: Platelet Estimate Increased (Normal)
[2016-12-15 05:50] LABS: Reactive Lymphocytes Present (Not Present)
[2016-12-15] MEDS: *HR* Enoxaparin 60 MG/0.6 ML SYRINGE SQ SCH ×2 (06:31→18:22)
[2016-12-15] MEDS ORDERED: Magnesium Sulfate 2 GM in D5% in Water 100 ML IVPB ONE (08:33)
[2016-12-15] MEDS: Sennosides/Docusate Sodium TABLET PO SCH ×2 (08:59→19:58)
[2016-12-15] MEDS: Magnesium Oxide 400 MG TABLET PO SCH ×2 (08:59→19:58)
[2016-12-15] MEDS: Nicotine 21 MG PATCH.TD24 TD SCH (09:00)
[2016-12-15] MEDS: Ketorolac 30 MG/ML VIAL IVP PRN ×2 (11:24→18:21)
--- NOTE | 2016-12-15 11:39 | Internal Med Progress Note ---
Date of Encounter: 12/15/16 Time of Encounter: 11:36 - Assessment and plan (1) Septic thrombophlebitis of upper extremity Current Visit: Yes Status: Acute Assessment and plan: Cellulitis and septic thrombophlebitis of right hand - improving slowly - causative organism likely GAS CT of the hand - negative for narcotizing fascitis Orthopedics consult - no surgical intervention at this time ID input appreciated Continue IV Rocephin, Lovenox 1 mg/kg twice a day (2) Empyema Current Visit: Yes Status: Acute Assessment and plan: Right-sided empyema - secondary to septic emboli and bacteremia due to IV drug use - slowly improving Cardiothoracic surgery consult - status post right thoracotomy and decortication , Chest tube removed (12/11/16) Hydrocodone/Acetaminophen prn moderate pain added Toradol 30mg IV q6h prn severe pain Encouraged out of bed to chair and incentive spirometry, Continue IV Rocephin ID following patient - appreciate input Discharge with PO antibiotics Discharge pending INR within therapeutic range Daily dressing changes at the site of chest tube (3) DVT (deep venous thrombosis) Current Visit: Yes Status: Acute Assessment and plan: Patient is noted to have septic thrombophlebitis and Acute Thrombosis of right ulnar vein Continue therapeutic dose of subcutaneous Lovenox continue lovenox SQ (1mg/kg) q12h with coumadin pharmacy to dose coumadin goal INR: 2-3 d/c pending achievement of therapeutic INR Right upper extremity elevation and supportive care, Pain control Qualifiers: DVT location: upper extremity Affected thrombotic vein of extremity: ulnar Chronicity: acute Laterality: right Qualified Code(s): I82.621 - Acute embolism and thrombosis of deep veins of right upper extremity (4) Hepatitis C Current Visit: Yes Status: Chronic Assessment and plan: chronic, Follow-up as outpatient Qualifiers: Viral hepatitis chronicity: chronic Hepatic coma status: without hepatic coma Qualified Code(s): B18.2 - Chronic viral hepatitis C (5) Hypomagnesemia Current Visit: Yes Status: Resolved Assessment and plan: Mg supplemented continue to monitor electrolytes and replace as needed (6) IV drug abuse Current Visit: Yes Status: Chronic Assessment and plan: Counseled about cessation (7) Septic embolism Current Visit: Yes Status: Acute Assessment and plan: Septic embolism to both lungs - continue IV antibiotics, Duoneb breathing treatment CT chest - bilateral pulmonary nodules continue abx and anticoagulation (8) Tobacco abuse Current Visit: Yes Status: Chronic Assessment and plan: smoking cessation counseling provided pt considering quitting refused nicotine supplementation therapy - Subjective Interval history: Pt seen and examined at bedside. Pt crying because of the pain in his right hand. states the percocet isn't doing anything and Toradol helped a lot more than the percocet. No overnight issues reported. - Constitutional Vitals: Temp Pulse Resp BP Pulse Ox 98.1 F 73 18 119/76 96 12/15/16 10:48 12/15/16 10:48 12/15/16 10:48 12/15/16 10:48 12/15/16 07:38 General appearance: Present: cachectic, A&O X 3, pleasant, no acute distress, answers questions appropriately - Head Head exam: Present: atraumatic, normocephalic - Eye Eye exam: Present: conjuntiva pink, sclera anicteric - Respiratory Respiratory exam: Present: CTAB. Absent: respiratory distress, wheezes - Cardiovascular Cardiovascular exam: Present: RRR, +S1, +S2. Absent: diastolic murmur, gallop, rubs, systolic murmur Additional comments: lateral right chest wall-steristrips intact and dressing dry at the chest tube site - GI/Abdominal GI/Abdominal exam: Present: normal bowel sounds, soft, no peritoneal signs. Absent: distended, tenderness - Extremities Exam Extremities exam: Present: warm, radial pulses palpable and symmetrical. Absent : calf tenderness, cyanotic, pedal edema Additional comments: right hand edema - Neurological Exam Neurological exam: Present: alert, oriented X3 - Psychiatric Psychiatric exam: Present: normal affect, normal mood Internal Medicine: Result - Labs CBC & Chem 7: 12/15/16 05:10 12/15/16 05:10 Labs: Short CBC 12/15/16 Range/Units 05:10 WBC 5.5 (4.3-11.1) K/mcL Hgb 9.4 L (12.9-16.9) g/dL Hct 29.8 L (37.5-50.1) % Plt Count 560 H (140-400) K/mcL Neutrophils # 2.9 (1.6-8.9) K/mcL BMP 12/15/16 05:10 Sodium 135 L Potassium 4.2 Chloride 100 Carbon Dioxide 33 H BUN 19 Creatinine 0.71 L Glucose 98 Calcium 8.8 - ABG Interpretation ABG results: ABG ABG pH 7.40 pH Units (7.32-7.45) 12/06/16 04:45 ABG pCO2 44 mmHg (35-45) 12/06/16 04:45 ABG pO2 61 mmHg (85-104) L 12/06/16 04:45 ABG O2 Saturation 91 % (95-98) L 12/06/16 04:45 PT/INR, D-dimer PT 18.9 Seconds (9.4-12.1) H 12/15/16 05:10 - Impressions Impressions Chest X-Ray 12/14/16 14:47 IMPRESSION: Stable chest with persistent small right pleural effusion and adjacent airspace opacity. D/ / Maribell Michaud MD / Maribell Michaud MD Interpreting Provider: Maribell Michaud MD Consult Discharge Plan - Plan Instructions: Pneumonia (DC) Referrals: NONE,PCP [Primary Care Provider] - (december 10 at residency clinic with dr dial at 3:00)
[2016-12-15] MEDS ORDERED: *HR* Warfarin 7.5 MG TABLET PO ONE (18:00)
[2016-12-16] MEDS: Ketorolac 30 MG/ML VIAL IVP PRN ×4 (00:44→19:45)
[2016-12-16] MEDS: *HR* OxyCODONE/APAP 10/325 TABLET PO PRN ×3 (02:04→15:43)
[2016-12-16 04:42] LABS: Basophils % 0.5 %; Eosinophils # 0.1 K/mcL (0.0-0.6); Eosinophils % 1.5 %; Hematocrit 29.6 % (37.5-50.1); Hemoglobin 9.5 g/dL (12.9-16.9); Immature Granulocytes % 0.3 % (0-4); Lymphocytes # 1.7 K/mcL (0.6-4.6); Lymphocytes % 25.6 %; Mean Corpuscular HGB Conc 32.1 g/dL (31.6-35.5); Mean Corpuscular Hemoglobin 27.6 pg (28.0-33.3); Mean Platelet Volume 8.2 fL (9.4-12.4); Monocytes # 0.8 K/mcL (0.0-1.3); Neutrophils # 3.9 K/mcL (1.6-8.9); Platelet Count 479 K/mcL (140-400); Red Blood Count 3.44 M/mcL (4.19-5.50); Segmented Neutrophils % 60.1 %
[2016-12-16 04:56] LABS: BUN/Creatinine Ratio 36 (6-26); Blood Urea Nitrogen 27 mg/dL (8-26); Calcium 8.8 mg/dL (8.6-10.8); Carbon Dioxide 27 mEq/L (19-29); Chloride 102 mEq/L (98-109); Glucose 108 mg/dL (70-99); Magnesium 1.6 mg/dL (1.6-2.6); Osmolality,Calculated 286 (280-300); Phosphorous 3.7 mg/dL (2.3-4.7); Potassium 4.8 mEq/L (3.5-4.5); Sodium 135 mEq/L (136-145); eGFR For African Americans > 60 (> 60); eGFR For Non-African Americans > 60 (> 60)
[2016-12-16 05:12] LABS: Platelet Estimate Increased (Normal); Reactive Lymphocytes Present (Not Present)
[2016-12-16] MEDS: *HR* Enoxaparin 60 MG/0.6 ML SYRINGE SQ SCH ×2 (06:41→18:53)
--- NOTE | 2016-12-16 09:36 | Internal Med Progress Note ---
Date of Encounter: 12/16/16 Time of Encounter: 09:33 - Assessment and plan (1) Septic thrombophlebitis of upper extremity Current Visit: Yes Status: Acute Assessment and plan: Cellulitis and septic thrombophlebitis of right hand - improving slowly - causative organism likely GAS CT of the hand - negative for narcotizing fascitis Orthopedics consult - no surgical intervention at this time ID input appreciated Continue IV Rocephin INR within therapeutic range, will continue coumadin and d/c Lovenox SQ after this evening's dose d/c pending clearance from ID (2) Empyema Current Visit: Yes Status: Acute Assessment and plan: Right-sided empyema - secondary to septic emboli and bacteremia due to IV drug use - slowly improving Cardiothoracic surgery consult - status post right thoracotomy and decortication , Chest tube removed (12/11/16) Hydrocodone/Acetaminophen prn moderate pain Toradol 30mg IV q6h prn severe pain Encouraged out of bed to chair and incentive spirometry, Continue IV Rocephin ID following patient - appreciate input Discharge with PO antibiotics discharge pending ID clearance/input on outpatient abx therapy and duration Daily dressing changes at the site of chest tube (3) DVT (deep venous thrombosis) Current Visit: Yes Status: Acute Assessment and plan: Patient is noted to have septic thrombophlebitis and Acute Thrombosis of right ulnar vein Continue therapeutic dose of subcutaneous Lovenox-last dose this evening INR: 2 goal InR: 2-3 continue coumadin pharmacy to dose coumadin Right upper extremity elevation and supportive care, Pain control Qualifiers: DVT location: upper extremity Affected thrombotic vein of extremity: ulnar Chronicity: acute Laterality: right Qualified Code(s): I82.621 - Acute embolism and thrombosis of deep veins of right upper extremity (4) Hepatitis C Current Visit: Yes Status: Chronic Assessment and plan: chronic, Follow-up as outpatient Qualifiers: Viral hepatitis chronicity: chronic Hepatic coma status: without hepatic coma Qualified Code(s): B18.2 - Chronic viral hepatitis C (5) Hypomagnesemia Current Visit: Yes Status: Resolved Assessment and plan: resolved continue to monitor electrolytes and replace as needed (6) IV drug abuse Current Visit: Yes Status: Chronic Assessment and plan: Counseled about cessation (7) Tobacco abuse Current Visit: Yes Status: Chronic Assessment and plan: smoking cessation counseling provided pt considering quitting refused nicotine supplementation therapy (8) Septic embolism Current Visit: Yes Status: Acute Assessment and plan: Septic embolism to both lungs - continue IV antibiotics, Duoneb breathing treatment CT chest - bilateral pulmonary nodules continue abx and anticoagulation - Subjective Interval history: Pt seen and examined at bedside. Resting comfortably in bed and denies any pain at this time. States pain is appropriately controlled with the current pain medications. No overnight issues reported. - Constitutional Vitals: Temp Pulse Resp BP Pulse Ox 98.2 F 67 16 121/78 98 12/16/16 07:05 12/16/16 07:05 12/16/16 07:05 12/16/16 07:05 12/16/16 07:05 General appearance: Present: cachectic, A&O X 3, pleasant, no acute distress, answers questions appropriately - Head Head exam: Present: atraumatic, normocephalic - Eye Eye exam: Present: conjuntiva pink, sclera anicteric - Respiratory Respiratory exam: Present: CTAB. Absent: respiratory distress, wheezes - Cardiovascular Cardiovascular exam: Present: RRR, +S1, +S2. Absent: diastolic murmur, gallop, rubs, systolic murmur Additional comments: right lateral chest wall dressing intact - GI/Abdominal GI/Abdominal exam: Present: normal bowel sounds, soft, no peritoneal signs. Absent: distended, tenderness - Extremities Exam Extremities exam: Present: warm, radial pulses palpable and symmetrical. Absent : calf tenderness, cyanotic, pedal edema Additional comments: right hand edema - Neurological Exam Neurological exam: Present: alert, oriented X3 - Psychiatric Psychiatric exam: Present: normal affect, normal mood Internal Medicine: Result - Labs CBC & Chem 7: 12/16/16 04:30 12/16/16 04:30 Labs: Short CBC 12/16/16 Range/Units 04:30 WBC 6.5 (4.3-11.1) K/mcL Hgb 9.5 L (12.9-16.9) g/dL Hct 29.6 L (37.5-50.1) % Plt Count 479 H (140-400) K/mcL Neutrophils # 3.9 (1.6-8.9) K/mcL BMP 12/16/16 04:30 Sodium 135 L Potassium 4.8 H Chloride 102 Carbon Dioxide 27 BUN 27 H Creatinine 0.76 Glucose 108 H Calcium 8.8 - ABG Interpretation ABG results: ABG ABG pH 7.40 pH Units (7.32-7.45) 12/06/16 04:45 ABG pCO2 44 mmHg (35-45) 12/06/16 04:45 ABG pO2 61 mmHg (85-104) L 12/06/16 04:45 ABG O2 Saturation 91 % (95-98) L 12/06/16 04:45 PT/INR, D-dimer PT 22.0 Seconds (9.4-12.1) H 12/16/16 04:30 Consult Discharge Plan - Plan Instructions: Pneumonia (DC) Referrals: NONE,PCP [Primary Care Provider] - (december 10 at residency clinic with dr dial at 3:00)
[2016-12-16] MEDS: Sennosides/Docusate Sodium TABLET PO SCH ×2 (09:41→19:45)
[2016-12-16] MEDS: Magnesium Oxide 400 MG TABLET PO SCH ×2 (09:41→19:45)
[2016-12-16] MEDS: Nicotine 21 MG PATCH.TD24 TD SCH (09:42)
[2016-12-16] MEDS ORDERED: *HR* Warfarin 3 MG TABLET PO ONE (18:00)
[2016-12-17] MEDS: Ketorolac 30 MG/ML VIAL IVP PRN ×3 (03:10→17:15)
[2016-12-17 03:34] LABS: Basophils % 0.3 %; Eosinophils # 0.1 K/mcL (0.0-0.6); Eosinophils % 1.6 %; Hematocrit 28.6 % (37.5-50.1); Hemoglobin 9.1 g/dL (12.9-16.9); Immature Granulocytes % 0.3 % (0-4); Lymphocytes # 1.6 K/mcL (0.6-4.6); Lymphocytes % 28.3 %; Mean Corpuscular HGB Conc 31.8 g/dL (31.6-35.5); Mean Corpuscular Hemoglobin 27.2 pg (28.0-33.3); Mean Corpuscular Volume 85.4 fL (83.0-100.0); Mean Platelet Volume 8.4 fL (9.4-12.4); Monocytes # 0.7 K/mcL (0.0-1.3); Neutrophils # 3.3 K/mcL (1.6-8.9); Platelet Count 431 K/mcL (140-400); Red Blood Count 3.35 M/mcL (4.19-5.50); Red Cell Distribution Width 13.9 % (11.5-14.5); Segmented Neutrophils % 57.5 %
[2016-12-17 03:47] LABS: INR 2.2; Prothrombin Time 24.5 Seconds (9.4-12.1)
[2016-12-17 03:48] LABS: BUN/Creatinine Ratio 32 (6-26); Blood Urea Nitrogen 22 mg/dL (8-26); Calcium 8.8 mg/dL (8.6-10.8); Carbon Dioxide 28 mEq/L (19-29); Chloride 102 mEq/L (98-109); Glucose 117 mg/dL (70-99); Magnesium 1.4 mg/dL (1.6-2.6); Osmolality,Calculated 286 (280-300); Phosphorous 3.1 mg/dL (2.3-4.7); Potassium 4.4 mEq/L (3.5-4.5); Sodium 136 mEq/L (136-145); eGFR For African Americans > 60 (> 60); eGFR For Non-African Americans > 60 (> 60)
[2016-12-17 04:04] LABS: Reactive Lymphocytes Present (Not Present)
[2016-12-17] MEDS ORDERED: Magnesium Sulfate 2 GM in D5% in Water 100 ML IVPB ONE (07:56)
[2016-12-17] MEDS: *HR* OxyCODONE/APAP 10/325 TABLET PO PRN ×2 (08:21→15:43)
[2016-12-17] MEDS: Sennosides/Docusate Sodium TABLET PO SCH (08:21)
[2016-12-17] MEDS: Magnesium Oxide 400 MG TABLET PO SCH (08:21)
[2016-12-17] MEDS: Nicotine 21 MG PATCH.TD24 TD SCH (08:22)
--- NOTE | 2016-12-17 08:26 | Infectious Disease Progress No ---
Date of Encounter: 12/17/16 Time of Encounter: 08:25 - Assessment and Plan (1) Bacteremia Current Visit: Yes Status: Acute Causative organism: GAS. Source unclear: Right hand cellulitis vs. PNA vs. empyema. Blood cultures drawn 11/30/16 are positive 2/2 sets. Repeat blood cultures drawn 12/04/16 and 12/14/16 reveal NGTD. TTE negative for vegetations. The patient has three minor Modified Hutchison's Criteria. Febrile yesterday. Continue Rocephin 2 grams IV daily. Duration of treatment depends on the clinical picture. Monitor renal function and for drug toxicity and dose-adjust antibiotics. (2) Severe sepsis Current Visit: Yes Status: Resolved The patient had three SIRS criteria plus lactic acidosis on admission. Likely secondary to bacteremia. (3) Empyema lung Current Visit: Yes Status: Acute Status post Right anterior thoracotomy with drainage of empyema, decortication of the lung and culture of the pleural fluid 12/05/16. Chest tube removed . 12/14/16 chest x-ray reveals Stable chest with persistent small right pleural effusion and adjacent airspace opacity. 12/03/16 thoracentesis revealed exudative fluid consistent with empyema 12/03/16 bacteria seen on gram stain but culture shows no growth to date 12/05/16 intraoperative pleural fluid cultures reveals no growth to date Pulmonology/ Dr. Levine following CT surgery/ Dr. Krueger following Enc[employer] incentive spirometry (4) Septic embolism Current Visit: Yes Status: Acute Location: Bilateral lungs. CT of the chest revealed bilateral pulmonary nodules. Pulmonology consulted. Given bacteremia and patient's history of IVDU, likely septic emboli. Continue antibiotics as above. (5) PNA (pneumonia) Current Visit: Yes Status: Acute Location: RLL. Causative organism unclear, but possible GAS. 12/14/16 chest x-ray reveals Stable chest with persistent small right pleural effusion and adjacent airspace opacity. Pulmonology following. Continue antibiotics as above. Qualifiers: Pneumonia type: due to unspecified organism Laterality: unspecified laterality Lung location: lower lobe of lung Qualified Code(s): J18.1 - Lobar pneumonia, unspecified organism (6) Cellulitis Current Visit: Yes Status: Ruled-out Location: Right hand. Resolving. Causative organism likely GAS. CT negative for necrotizing fasciitis. Ortho evaluation appreciated - no surgical intervention required at this time. Continue antibiotics as above. Qualifiers: Site of cellulitis: extremity Site of cellulitis of extremity: upper extremity Laterality: right Qualified Code(s): L03.113 - Cellulitis of right upper limb (7) Hand pain, right Current Visit: Yes Status: Acute Secondary to right hand thrombophlebitis and cellulitis. Venous doppler studies negative. Pain management per the primary team. (8) IV drug abuse Current Visit: Yes Status: Chronic Last use 2 months ago. Known Hep C positive. HIV negative. (9) Hyponatremia Current Visit: Yes Status: Acute (10) Hypomagnesemia Current Visit: Yes Status: Resolved (11) Pleural effusion Current Visit: Yes Status: Acute 12/14/16 chest x-ray reveals Stable chest with persistent small right pleural effusion and adjacent airspace opacity. - Subjective Interval history: Patient seen and examined. Status post Right anterior thoracotomy with drainage of empyema, decortication of the lung and culture of the pleural fluid 12/05/16. Patient denies fever, chills, chest pain, shortness of breath, hemoptysis, abdominal pain, nausea, vomiting, diarrhea, or worsening right arm edema. Infect Dis PN-Objective Data - Labs CBC & Chem 7: 12/17/16 03:20 12/17/16 03:20 Labs: Laboratory Results - last 24 hr 12/17/16 12/17/16 12/17/16 03:20 03:20 03:20 WBC 5.7 RBC 3.35 L Hgb 9.1 L Hct 28.6 L MCV 85.4 MCH 27.2 L MCHC 31.8 RDW 13.9 Plt Count 431 H MPV 8.4 L Immature Gran % 0.3 Seg Neutrophils % 57.5 Lymphocytes % 28.3 Monocytes % 12.0 Eosinophils % 1.6 Basophils % 0.3 Neutrophils # 3.3 Lymphocytes # 1.6 Monocytes # 0.7 Eosinophils # 0.1 Basophils # 0.0 Reactive Lymphocytes Present A Platelet Estimate Slight increase H PT 24.5 H INR 2.2 Sodium 136 Potassium 4.4 Chloride 102 Carbon Dioxide 28 BUN 22 Creatinine 0.69 L Est GFR ( Amer) > 60 Est GFR (Non-Af Amer) > 60 BUN/Creatinine Ratio 32 H Glucose 117 H Calculated Osmolality 286 Calcium 8.8 Phosphorus 3.1 Magnesium 1.4 L Cultures: Cultures 12/14/16 16:00 Blood Culture - Preliminary Peripheral Venipuncture No growth. 12/14/16 14:50 Blood Culture - Preliminary Peripheral Venipuncture No growth. 12/05/16 19:30 Anaerobic Culture - Final Pleural Fluid No anaerobes were recovered. 12/04/16 00:47 Blood Culture - Final Peripheral Venipuncture No growth. 12/04/16 00:47 Blood Culture - Final Peripheral Venipuncture No growth. 12/05/16 19:30 Wound Culture - Final Other-Specify in Comments No growth. 12/03/16 15:00 Body Fluid Culture - Final Pleural Fluid 12/03/16 15:00 Acid Fast Stain - Final Pleural Fluid Serology 12/04/16 12/03/16 12/03/16 Range/Units 00:47 15:00 15:00 Pleural Fluid Volume 500.0 mL Pleural Appearance Cloudy A (Clear) Pleural RBC 0.002 (0.000 - 0.002) M/mcL Pleural Tot Nuc Cell 4630 H (0-1000) TNC/mcL Pleural Neutrophils 91.0 % Pleural Band Neuts Test Not Performed Pleural Eosinophils Test Not Performed Pleural Basophils Test Not Performed Pleural Lymphocytes % 7.0 % Pleural Monocytes % 2.0 % Pleural Other Cells % Test Not Performed Pleural Total Protein 3.1 (No Ref Range) g/dL Pleural LDH 1758 (No Ref Range) Units/L Pleural Glucose 13 (No Ref Range) mg/dL HIV Ag/Ab Combo Qual Nonreactive (Nonreactive) Exam - Constitutional Vitals: Temp Pulse Resp BP Pulse Ox 98.2 F 55 16 114/78 95 12/17/16 07:35 12/17/16 07:35 12/17/16 07:35 12/17/16 07:35 12/17/16 07:35 General appearance: cooperative, no acute distress, thin, no febrile - Head Head exam: Present: atraumatic, normal inspection, normocephalic - Eye Eye exam: Present: PERRL, conjuntiva pink - ENT ENT exam: Present: mucous membranes moist, normal oropharynx - Neck Neck exam: Present: full ROM, normal inspection - Respiratory Respiratory exam: Present: CTAB. Absent: rales, rhonchi, wheezes - Cardiovascular Cardiovascular exam: Present: RRR, +S1, +S2 - GI/Abdominal GI/Abdominal exam: Present: normal bowel sounds, soft. Absent: guarding, rebound - Extremities Exam Extremities exam: Present: full ROM Additional comments: Markedly improved right hand edema - Neurological Exam Neurological exam: Present: alert, oriented X3. Absent: altered, motor sensory deficit - Psychiatric Psychiatric exam: Present: normal affect, normal mood - Skin Skin exam: Present: dry, warm. Absent: erythema, rash Consult Discharge Plan - Plan Instructions: Pneumonia (DC) Additional Instructions: Please follow up with your primary care physician within five days after your discharge from the hospital. Please follow up with your block sealer, infectious disease specialist within one week after your discharge from the hospital. Please follow up with Coumadin clinic as scheduled. Please continue oral antibiotics as prescribed. Smoking cessation is highly advised. Referrals: [facility] [Advanced Practice Nurse] - (Office will call patient at home with date and time of appt. Thank you) Akhil Gonzales MD [Partnered Physician] - 12/24/16 9:15 am Nai Aburto DO [Resident] - 12/24/16 3:00 pm Prescriptions: OxyCODONE/APAP 10/325 [Percocet 10/325 MG] 1 each PO Q6HR PRN #10 tab PRN Reason: Severe Pain Warfarin [Coumadin] 6 mg PO 1800 #30 tablet - Attending Attestation I examined this patient and my medical decision-making was reviewed with the Resident Physician. I agree with the documented findings, disposition and treatment plan as described except to the extent set forth below.
[2016-12-17 10:42] VITALS: BP 124/79
--- NOTE | 2016-12-17 10:59 | Discharge Summary ---
Date of Encounter: 12/17/16 Time of Encounter: 10:54 - Discharge Diagnosis (1) Septic thrombophlebitis of upper extremity Priority: Primary Status: Acute (2) Empyema Priority: Primary Status: Acute (3) DVT (deep venous thrombosis) Priority: Secondary Status: Acute Qualifiers: DVT location: upper extremity Affected thrombotic vein of extremity: ulnar Chronicity: acute Laterality: right Qualified Code(s): I82.621 - Acute embolism and thrombosis of deep veins of right upper extremity (4) Hepatitis C Priority: Secondary Status: Chronic Qualifiers: Viral hepatitis chronicity: chronic Hepatic coma status: without hepatic coma Qualified Code(s): B18.2 - Chronic viral hepatitis C (5) Hypomagnesemia Priority: Secondary Status: Resolved (6) IV drug abuse Priority: Primary Status: Chronic (7) Tobacco abuse Priority: Secondary Status: Chronic (8) Septic embolism Priority: Primary Status: Acute - Discharge Medications Prescriptions: OxyCODONE/APAP 10/325 [Percocet 10/325 MG] 1 each PO Q6HR PRN #10 tab PRN Reason: Severe Pain Warfarin [Coumadin] 6 mg PO 1800 #30 tablet Home Medications: OxyCODONE/APAP 10/325 [Percocet 10/325 MG] 1 each PO Q6HR PRN #10 tab 12/17/16 [ Rx] Warfarin [Coumadin] 6 mg PO 1800 #30 tablet 12/17/16 [Rx] Allergies/Adverse Reactions: 3 Allergy/AdvReac Type Severity Reaction Status Date / Time Penicillins Allergy Anaphylaxis Verified 11/29/16 19:04 Date of admission: 11/30/16 18:26 Primary care physician: PCP NONE Consults: 11/30/16 23:46 Consult to Nutrition [CONS] Routine Comment: Consulting Provider: NUTRITION Reason for Dietary Consult: Other Other:: Weight loss 12/01/16 16:44 Consult to Pulmonology [CONS] Routine Consulting Provider: [facility] [place] Reason for Consult: Right pleural effusioin Time Notified: 16:45 Call Completed: No 12/03/16 11:13 Consult to Infectious Diseases [CONS] Routine Consulting Provider: [facility] [place] Reason for Consult: cellulitis of MANDA, HX of IV drug use Time Notified: 11:16 Call Completed: No Consult to Social Service(Oncology) [CONS] Routine Comment: Consulting Provider: Komal Palmer Reason for Consult: IV drug use Time Notified: 11:14 Call Completed: Yes 12/04/16 13:35 Consult to Orthopedic Surgery [CONS] Routine Consulting Provider: [facility] Reason for Consult: Right hand swelling and pain Call Completed: Yes 12/05/16 19:50 Consult to Fan Mail Clerk [CONS] Routine Reason for SW Consult: L Tach, pail bailer IV ATB's. 12/11/16 10:39 Consult to Invasive Line Access Team [CONS] Routine Reason for Consult: home iv atb Line Type: EPIV Discharging clinician: Teresa Jacobs Anticipated date of discharge: 12/17/16 - Patient Status Disposition: Home, Self-Care Condition: Good Functional capacity at discharge: independent ambulation Overall status at discharge: patient is back to baseline - Discharge Instructions Instructions: Pneumonia (DC) Follow Up With: Tracy Fox CNP [Advanced Practice Nurse] - (Office will call patient at home with date and time of appt. Thank you) Akhil Gonzales MD [Partnered Physician] - 12/24/16 9:15 am Nai Aburto DO [Resident] - 12/24/16 3:00 pm Additional Instructions: Please follow up with your primary care physician within five days after your discharge from the hospital. Please follow up with your electrical and radio mock up mechanic, infectious disease specialist within one week after your discharge from the hospital. Please follow up with Coumadin clinic as scheduled. Please continue oral antibiotics as prescribed. Smoking cessation is highly advised. - Diet and Activity Activity: resume usual activities as tolerated Diet: advance to your usual diet Hospital course: Mr. Garzon is a 31 year old male with PMH of IVDA, polysubstance abuse admitted for severe sepsis secondary to right hand cellulitis, and right lung empyema. He was started on IV antibiotics and was evaluated by pulmonology and cardiothoracic surgery. He had a chest tube placed for the empyema. He was noted to have b/l septic emboli in lungs and RUE DVT. He was started on coumadin bridging with lovenox for anticoagulation. His chest tube was removed as he clinically improved. Infectious disease followed the patient throughout the course of his hospitalization. He is currently hemodynamically stable, with INR within therapeutic range. He will remain on anticoagulation for at least three months and will follow up with his PCP, ID, PUlmonology, and Coumadin clinic after discharge. Pt demonstrates understanding of his diagnosis and agrees with the discharge care and plan. - Time Spent with Patient Total time spent providing and/or coordinating discharge services: Greater than 30 minutes - Constitutional Vitals: Temp Pulse Resp BP Pulse Ox 98.1 F 87 16 124/79 97 12/17/16 10:40 12/17/16 10:40 12/17/16 10:40 12/17/16 10:40 12/17/16 10:40 General appearance: Present: cachectic, A&O X 3, pleasant, no acute distress, answers questions appropriately - Head Head exam: Present: atraumatic, normocephalic - Eye Eye exam: Present: conjuntiva pink, sclera anicteric - Respiratory Respiratory exam: Present: CTAB. Absent: accessory muscle use, rales, rhonchi, wheezes - Cardiovascular Cardiovascular exam: Present: RRR, +S1, +S2. Absent: diastolic murmur, gallop, rubs, systolic murmur - GI/Abdominal GI/Abdominal exam: Present: normal bowel sounds, soft, no peritoneal signs. Absent: distended, tenderness - Extremities Exam Extremities exam: Present: warm, radial pulses palpable and symmetrical. Absent : calf tenderness, cyanotic, pedal edema Additional comments: right hand edema-improving - Neurological Exam Neurological exam: Present: alert, oriented X3 - Psychiatric Psychiatric exam: Present: normal affect, normal mood
[2016-12-17] MEDS ORDERED: *HR* Warfarin 3 MG TABLET PO ONE (18:00)
== END 2016-12-17 18:33 | disposition home or self-care (01) | DRG 710 ==
LOC: EMEROO 12:25 → 3BNU 12:25 → 2NENU 18:23 → SUATTDRO 18:26 → 2NENU 20:55 → ICNU 12-05 20:16 → 3ANU 12-11 16:52
PROVIDERS: ADMIT Registered Nurse; ATTEND Internal Medicine